=== PATIENT | female | born 1990 | race Caucasian/White ===

== ENCOUNTER 2025-02-11 18:02 | Emergency (ER) | payer OTHER, SELFPAY ==
[2025-02-11 18:06] VITALS: BP 128/91; PULSE 99; RESP 18; TEMP 36.6; O2SAT 99
--- NOTE | 2025-02-11 18:25 | CRLHL7_ITS ---
For Patients: As a result of the Century Cures Act, medical imaging exams and procedure reports are released immediately into your electronic medical record. You may view this report before your referring provider. If you have questions, please contact your health care provider. INDICATION: TECHNIQUE: Ultrasound pelvis transabdominal and transvaginal for better assessment or to better visualize the endometrium. Real-time sonographic images with spectral and color Doppler imaging of the ovaries were obtained. COMPARISON: None FINDINGS: Uterus: 9.8 x 5.5 x 7.7 cm. Normal echotexture of the myometrium. No masses. Endometrium: Transvaginal imaging was performed to better evaluate the endometrium. Endometrial thickness measures 9.3 mm. There is a mildly hyperechoic appearing endometrium without obvious vascular material to suggest retained products. Right ovary measures 2.9 x 1.5 x 1.6 cm and left ovary measures 2.7 x 1.6 x 2.1 cm. No ovarian or adnexal masses. Normal arterial and venous blood flow is demonstrated in both ovaries. Cul-de-sac: No significant free fluid. IMPRESSION: Mildly thickened endometrium with a hypoechoic appearance measuring 9.3 millimeters with out obvious vascular material to suggest retained products of conception or significant fluid. Dictated by Cuco Quach MD @ 02/11/2025 7:54:04 PM (Electronically Signed)
--- NOTE | 2025-02-11 18:31 | ED_ITS ---
HPI - Female Genitourinary General Date Seen: 02/11/25 Chief complaint: Vaginal Bleeding Stated complaint: Post Miscarriage symptoms Time Seen by Provider: 02/11/25 18:05 Source: patient Mode of arrival: ambulatory Limitations: no limitations History of Present Illness HPI Narrative: Patient is a 34-year-old female presenting to the emergency department for vaginal bleeding. She had a miscarriage in 02/02 and then had a D&C and 02/03. The D and C was done because the patient did not want to go through the trauma of having a miscarriage at home again. Was spotting since then and an ultrasound was done last week showing that the patient had a pretty large clot. Was given medication to help pass the clot. She thinks she passed a clot 2 days ago but since then has been intermittently having either vaginal spotting or notable bleeding were she was saturate a pad an hour. States she will have some associated lightheadedness. Was told to come in she has severe bleeding. This is her 2nd miscarriage. Has had 1 to term. She is A2. Denies fevers, chills, chest pain, abdominal pain, headache, weakness, numbness. No other concerns noted. Related Data Home Medications ?Medication ?Instructions ?Recorded ?Confirmed ocrelizumab 30 mg/mL intravenous 600 mg IV [id number] 02/11/25 02/11/25 solution (Ocrevus) sertraline 50 mg tablet 50 mg PO DAILY 02/11/25 02/11/25 Previous Rx's ?Medication ?Instructions ?Recorded methylergonovine 0.2 mg tablet 0.2 mg PO TID 24 hours #3 tabs 02/11/25 Allergies Allergy/AdvReac Type Severity Reaction Status Date / Time amoxicillin Allergy Severe lip Verified 02/11/25 18:11 swelling Review of Systems Status of ROS: Reports: 10 or more systems reviewed and unremarkable except as noted in History and below PFSH PFS Social History Smoking Status: Never smoker How often do you have a drink containing alcohol: 2-4 times a month AUDIT-C Alcohol total score: 2 Non-prescribed substance use: denies use Exam Narrative: Exam Narrative: Const: Well-nourished, Well-developed, in No distress Eyes: PERRL, no conjunctival injection, and symmetrical lids HENT: Atraumatic external nose and ears. Moist mucous membranes. Neck: Symmetric, trachea midline, No thyromegaly. CVS: RRR, No murmurs or gallops. Peripheral pulses 2+ and equal in all extremities RESP: Unlabored respiratory effort. Clear to auscultation bilaterally. GI: Nontender/Nondistended, No rebound or guarding. MSK:Extremities w/o deformity, Normal Active ROM Skin: Warm, Dry. No rashes or lesions. Neuro: Normal Muscle tone, No focal neurological deficits. Psych: Awake, Alert, & Oriented x3. Appropriate mood and affect. Const: Vital Signs, click to edit/add: Vital Signs - 24 hr 02/11/25 18:06 Temperature 97.9 F Pulse Rate [Pulse Oximeter] 99 Respiratory Rate 18 Blood Pressure [Ri ght Upper Arm] 128/91 H Pulse Oximetry 99 Oxygen Delivery Me thod Room Air Course Vital Signs Vital signs: Initial Vital Signs Temperature 97.9 F 02/11/25 18:06 Temperature Source Temporal Artery Scan 02/11/25 18:06 Pulse Rate 99 02/11/25 18:06 Respiratory Rate 18 02/11/25 18:06 Blood Pressure 128/91 H 02/11/25 18:06 Blood Pressure Mean 103 02/11/25 18:06 Pulse Oximetry 99 02/11/25 18:06 Oxygen Delivery Method Room Air 02/11/25 18:06 Vital Signs Temperature 97.9 F 02/11/25 18:06 Pulse Rate 99 02/11/25 18:06 Respiratory Rate 18 02/11/25 18:06 Blood Pressure 128/91 H 02/11/25 18:06 Pulse Oximetry 99 02/11/25 18:06 Oxygen Delivery Method Room Air 02/11/25 18:06 Temperature 97.9 F 02/11/25 18:06 Pulse Rate 99 02/11/25 18:06 Respiratory Rate 18 02/11/25 18:06 Blood Pressure 128/91 H 02/11/25 18:06 Pulse Oximetry 99 02/11/25 18:06 Oxygen Delivery Method Room Air 02/11/25 18:06 MDM - Female Genitourinary MDM Narrative Medical decision making narrative: patient is a 34-year-old female presenting to the emergency department for vaginal bleeding. She is hemodynamically stable. Order a BMP and CBC. Will also do an pelvic ultrasound to look for Potential cause of bleeding. unlikely to have a product as she just had a D& C. This concerned she could be having a large bleed due to passing of this clot. Will also check hemoglobin and basic lab work to make sure everything else looks normal. Lab work shows no concerning abnormalities. The ultrasound showed a 9 mm hypoechoic structure which is likely more of this previous clot but it is quite a bit smaller. I did speak to the on-call [facility] provider as she will be following up with them and explained that this patient has having intermittent episodes of heavy bleeding or she is going through about a pad an hour . I explained what the ultrasound showed. we are in agreement that this is unlikely < clot and should pass shortly. She recommends repeating the patient's Methergine 0.2 mg q.8 hours for 1 day for total of 3 doses. Patient is agreeable to this plan. Will Lab Data Labs: Lab Results 02/11/25 Range/Units 18:41 WBC 6.73 (4.50-11.00) K/uL RBC 5.09 (4.00-5.20) m/uL Hgb 13.6 (12.0-16.0) gm/dL Hct 40.3 (33.0-51.0) % MCV 79 L (80-100) fL MCH 27 (26-34) pg MCHC 34 (32-36) gm/dL RDW Coeff of Luis Manuel 14.5 (11.5-15.5) % Plt Count 265 (140-440) K/uL Neut % (Auto) 53.5 (42.0-72.0) % Lymph % (Auto) 32.2 (20-44) % [place] % (Auto) 8.3 (0.0-11.0) % Eos % (Auto) 5.1 (0.0-7.0) % Baso % (Auto) 0.6 (0.0-3.0) % Neut # (Auto) 3.60 (1.7-7.0) K/uL Lymph # (Auto) 2.17 (0.90-2.90) K/uL [place] # (Auto) 0.60 (0.00-0.90) K/UL Eos # (Auto) 0.34 (0.00-0.50) K/uL Baso # (Auto) 0.04 (0.00-0.30) K/uL Abs Immat Gran (auto) 0.02 (0.00-0.30) K/uL Imm/Tot Granulo (auto) 0.3 % Sodium 137 (135-149) mmol/L Potassium 3.5 L (3.6-5.1) mmol/L Chloride 103 (96-114) mmol/L Carbon Dioxide 23 (20-32) mmol/L Anion Gap 11 (7-15) mEq/L BUN 15 (5-24) mg/dL Creatinine 0.8 (0.5-1.5) mg/dL Estimated GFR 100 ml/min Glucose 117 H (60-115) mg/dL Calcium 9.1 (8.4-10.6) mg/dL Imaging Data pelvic ultrasound: Attestation: I have reviewed the pertinent imaging results. Radiologist's impression: Mildly thickened endometrium with a hypoechoic appearance measuring 9.3 millimeters with out obvious vascular material to suggest retained products of conception or significant fluid. Dictated by Cuco Quach MD @ 02/11/2025 7:54:04 PM Discharge Plan Discharge Clinical Impression: Vaginal bleeding Patient Disposition: Home, Self-Care Condition: Stable Instructions: Abnormal (Dysfunctional) Uterine Bleeding (ED) Additional Instructions: repeat your Methergine prescription. We will send you a copy of your ultrasound to bring to your providers At your next appointment. Return for new or worsening symptoms. Prescriptions: New methylergonovine 0.2 mg tablet 0.2 mg PO TID 1 Days Qty: 3 0RF No Action sertraline 50 mg tablet 50 mg PO DAILY Ocrevus 30 mg/mL solution 600 mg IV [id number] Follow Up/Referrals: Jodie Bradley NP [Primary Care Provider] - Stand Alone Forms: MyHealth Info Instructions
[2025-02-11 18:47] LABS: Basophils Absolute Auto 0.04 K/uL (0.00-0.30); Basophils Percent Auto 0.6 % (0.0-3.0); Eosinophils Absolute Auto 0.34 K/uL (0.00-0.50); Eosinophils Percent Auto 5.1 % (0.0-7.0); Hematocrit 40.3 % (33.0-51.0); Hemoglobin* 13.6 gm/dL (12.0-16.0); Immature Granulocytes Abs Auto 0.02 K/uL (0.00-0.30); Immature Granulocytes Pct Auto 0.3 %; Lymphocytes Absolute Auto 2.17 K/uL (0.90-2.90); Lymphocytes Percent Auto 32.2 % (20-44); Mean Corpuscular HGB Conc 34 gm/dL (32-36); Mean Corpuscular Hemoglobin 27 pg (26-34); Mean Corpuscular Volume 79 fL (80-100); Monocytes Percent Auto 8.3 % (0.0-11.0); Neutrophils Percent Auto 53.5 % (42.0-72.0); Platelet Count* 265 K/uL (140-440); RDW Coefficient of Variation % 14.5 % (11.5-15.5); Red Blood Count 5.09 m/uL (4.00-5.20); White Blood Count* 6.73 K/uL (4.50-11.00)
[2025-02-11 18:52] LABS: Slide Review Reflex No
[2025-02-11 19:12] LABS: Chloride* 103 mmol/L (96-114); Potassium* 3.5 mmol/L (3.6-5.1); Sodium* 137 mmol/L (135-149)
[2025-02-11 19:15] LABS: Blood Urea Nitrogen* 15 mg/dL (5-24); Creatinine* 0.8 mg/dL (0.5-1.5); Estimated Glomerular Filt Rate 100 ml/min
[2025-02-11 19:16] LABS: Anion Gap 11 mEq/L (7-15); Calcium* 9.1 mg/dL (8.4-10.6); Carbon Dioxide* 23 mmol/L (20-32); Glucose* 117 mg/dL (60-115)
--- OUTSIDE RECORDS SUMMARY | 2025-02-11 20:07 | XMS_ITS | Clinical Summary ---
Author Organization [facility] Address [address] [place] [address] Care Team Providers Care Research Administrator Name Role Phone No Ref-Primary, Physician Primary Care Provider Danni Aguillon MD Unavailable + [phone] Allergies Active Allergy Reactions Criticality Noted Date Comments Amoxicillin 03/11/2024 Soy Allergy (Obsolete) 01/01/2018 Isoflavones (Soy) Unknown 01/01/2018 Medications ocrelizumab (OCREVUS) 300 MG/10ML SOLN injection Inject 600 mg into the vein every 6 months 07/14/2022 Active FLUoxetine (PROZAC) 40 MG capsule Take 1 capsule by mouth daily 07/29/2023 Active Active Problems Problem Noted Date Diagnosed Date Multiple sclerosis 07/15/2019 Overview (04/17/2021): Tysabri infusions Palpitations 07/15/2019 Encounters Date Type Department Care Team Description 02/03/2025 MyC Medical Advice [facility] [address] [phone] Danni Aguillon MD 01/15/2025 [facility]C [facility]/20/2024 MyC Medical Advice [facility] [address] [phone] Danni Aguillon MD 11/21/2024 3:00 PM SAS PROGRAMMER ANALYST Office Visit [facility] [address] [address] Danni Aguillon MD MS (multiple sclerosis) (H) (Primary Dx); Episodic recurrent vertigo 11/21/2024 Travel from Last 3 Months Family History Medical History Relation Comments Supraventricular tachycardia Father Supraventricular tachycardia Paternal Aunt Cancer Paternal Grandfather Coronary Artery Disease Paternal Grandfather Supraventricular tachycardia Paternal Grandfathe r Diabetes Paternal Grandmother Relation Status Comments Father Paternal Aunt Alive Paternal Grandfather (Age 64) heart att ack at 57 Paternal Grandmother Social History Tobacco Use Types Packs/Day Years Used Date Smoking Tobacco: Never Passive Smoke Exposure: Never Smokeless Tobacco: Never Tobacco Cessation:Counseling Given: Not Answered Alcohol Use Standard Drinks/Week Comments Yes 0 (1 standard drink = 0.6 oz pur e alcohol) Alcoholic Drinks/day: socially PHQ-2 Answer Date Recorded PHQ-2 Score 0 11/21/2024 Adolescent Education Answer Date Record ed Getting School Help Needed Not on file 07/25 Comments No Sex and Gender Information Value Date Recorded Sex Assigned at Not on file Legal Sex Female 7:56 AM CDT Gender Identity Female 08/12/2024 10:44 AM CDT Sexual Orientation Not on file Last Filed Vital Signs Vital Sign Reading Time Taken Comments Blood Pressure 131/85 11/21/2024 3:03 PM SAS PROGRAMMER ANALYST Pulse 82 11/21/2024 3:03 PM SAS PROGRAMMER ANALYST Temperature 36.8 C (98.2 F) 07/08/2024 8:21 AM CDT Respiratory Rate 16 07/08/2024 8:21 AM CDT Oxygen Saturation 96% 07/08/2024 8:21 AM CDT Inhaled Oxygen Concentration - - Weight 130.6 kg (288 lb) 07/08/2024 8:21 AM CDT Height 165.1 cm (5' 5) 03/24/2024 12:56 AM CDT Body Mass Index 47.93 03/24/2024 12:56 AM CDT Plan of Treatment Upcoming Encounters Date Type Department Care Team (Late st Contact Info) Description 03/06/2025 8:00 AM CDT Infusion Therapy Visit [facility] [phone] [place] [phone] Danni Aguillon MD [address] [place] [phone] 05/15/2025 3:00 PM CDT Office Visit [facility] [address] [phone] Danni Aguillon MD [address] [place] [phone] Health Maintenance Due Date Last Done Comments ADVANCE CARE PLANNING 1990 ANNUAL REVIEW OF HM ORDERS 1990 ZOSTER IMMUNIZATION (1 of 2) 2011 YEARLY PREVENTIVE VISIT 01/24/2012 01/23/2011, 06/18 Pneumococcal Vaccine: Pediat rics (0 to 5 Years) and At-Risk Patients (6 to 49 Years) (2 of 2 - PCV) 06/14/2015 06/14/2014 COVID-19 Vaccine ( - 2023-2 5 season) 2024 11/08/2021, 01/17/2021, 12/19/2020 INFLUENZA VACCINE (#1) 2024 , 09/01/2020, 09/03/2019, Additional history exists PAP 01/27/2027 01/28/2024, 01/01, 11/05/2020 DTAP/TDAP/TD IMMUNIZATION (8 - Td or Tdap) 01/28/2033 01/28/2023, 08/15/2011, 03/03/1998, Additional history exists HEPATITIS B IMMUNIZATION Completed 993, 1992, 1992 HPV IMMUNIZATION Completed 04/09/2010, 12/2009, 09/25/2009 MENINGITIS IMMUNIZATION Completed 01/23/2011, 06/18 HEPATITIS C SCREENING Completed 03/04/2024, 022 HIV SCREENING Completed 03/04/2024, 08/15/2022 PHQ-2 (once per calendar year) Completed 0 11/21/2024, 02/29/2024, 12/01/2022 Insurance [employer] Care Teams Research Administrator Relationship Specialty Start Date End Date No Ref-Primary, Physician PCP - General 10/12/22 Danni Aguillon MD [address] [place] [address] Assigned Neuroscience Provider 12/06/22
--- OUTSIDE RECORDS SUMMARY | 2025-02-11 20:07 | XMS_ITS | Encounter Summary ---
Author Organization [facility] Address [address] [place] [address] Care Team Providers Care Search Optimization Analyst Name Role Phone Danni Aguillon MD Primary Care Provider [phone] Encounter Details Date Type Department Care Team (Late Contact Info) Description 02/08/2025 Results Follow-Up [facility] Obstetrics and Gynecology [address] [place] [phone] Liseth Foley RN Social History Tobacco Use Types Packs/Day Years Used Date Smoking Tobacco: Never Passive Smoke Exposure: Never Smokeless Tobacco: Never Alcohol Use Standard Drinks/Week Comments Yes 0 (1 standard drink = 0.6 oz pur e alcohol) occ social alc usage per pt PHQ-2 Answer Date Recorded PHQ-2 Score 2 07/08/2023 Depression Answer Date Recor ded Last EPDS Total Score 4 01/19/2025 Last EPDS Self Harm Result Not on file 01/19 Comments No Sex and Gender Information Value Date Recorded Sex Assigned at Not on file Legal Sex Female 5:17 AM CDT Gender Identity Not on file Sexual Orientation Not on file Occupation Industry Job Start Date Job End Date [employer] Not on file Not on file Not on file documented as of this encounter Plan of Treatment Upcoming Encounters Date Type Department Care Team (Late Contact Info) Description 02/12/2025 12:00 PM CDT Appointment Laboratory at [facility] [address] [place] [phone] 02/13/2025 1:40 PM CDT Appointment [facility] OB-SECURITY GUARD SUPERVISOR Ultrasound [place] [address] [place] [address] Tia Mosqueda MD [address] [place], [place] [phone] 02/23/2025 12:40 PM CDT Appointment Obstetrics & Gynecology at [address] [phone] Rachell Jordan MD [address] [place] [address] documented as of this encounter Visit Diagnoses Not on filedocumented in this encounter Care Teams Search Optimization Analyst Relationship Specialty Start Date End Date Danni Aguillon MD [address] [place] [address] PCP - General Neurology 01/09/19 documented as of this encounter
--- OUTSIDE RECORDS SUMMARY | 2025-02-11 20:07 | XMS_ITS | Clinical Summary ---
Author Organization [facility] Address [address] [place] [address] Care Team Providers Care Loan Interviewer Name Role Phone Clinic, No Pcp Or Primary Care Provider Unavaila ble None Unavailable Unavailable Allergies Active Allergy Reactions Criticality Noted Date Comments Amoxicillin Other - Describe In Comment Field 01/09/2024 Azithromycin Other - Describe In Comment Field 08/01/2008 Pt had stomach pains. Pt had stomach pains. Pt had stomach pains. Pt had stomach pains. Pt had stomach pains. Medications hydroCHLOROthiaz lisa (HCTZ) 25 mg tablet 03/22/2023 Active FLUoxetine (PROZAC) 40 mg capsule Take 40 mg by mouth once daily in the morning. 07/29/2023 Active ocrelizumab (OCREVUS IV) Inject intravenous . Active Social History Tobacco Use Types Packs/Day Years Used Date Smoking Tobacco: Never Smokeless Tobacco: Never Tobacco Cessation:Counseling Given: Not Answered Alcohol Use Standard Drinks/Week Comments Not Currently 0 (1 standard drink = 0.6 oz pur e alcohol) Comments No Sex and Gender Information Value Date Recorded Sex Assigned at Not on file Legal Sex Female 6:40 AM CANVAS WORKER Gender Identity Not on file Sexual Orientation Not on file Obstetrics History Last Filed Vital Signs Vital Sign Reading Time Taken Comments Blood Pressure 119/85 08/24/2024 9:32 AM CDT Pulse 83 08/24/2024 9:32 AM CDT Temperature 36.1 C (97 F) 08/24/2024 9:32 AM CDT Respiratory Rate 16 08/24/2024 9:32 AM CDT Oxygen Saturation 98% 08/24/2024 9:32 AM CDT Inhaled Oxygen Concentration - - Weight 122.5 kg (270 lb) 08/24/2024 9:32 AM CDT Height 177.8 cm (5' 10) 08/24/2024 9:32 AM CDT Body Mass Index 38.74 08/24/2024 9:32 AM CDT Plan of Treatment Health Maintenance Due Date Last Done Comments Tdap 2003 Depression screening for age 12+ 2004 HIV for age 15-65 2007 BMI (ht and wt on same day) for age 18+ 2010 Hepatitis C screening for ag e 18-79 2010 Tetanus booster 2012 Pap test for age 21-65 2013 COVID-19 vaccine series ( season) 2024 11/08/2021, 01/17/2021, 12/19/2020 Influenza Vaccine (Season Ended) 2025 Pneumococcal series for age 6-49 Aged Out No longer eligible b ased on patient's age to complete this topic Insurance DAMARI WEBB [id number] [place] DAMARI WEBB [id number] Care Teams Loan Interviewer Relationship Specialty Start Date End Date Clinic, No Pcp Or . PCP - General 03/29/23 None . 03/29/23
--- OUTSIDE RECORDS SUMMARY | 2025-02-11 20:07 | XMS_ITS ---
Author Organization [facility] Address [address] [place] [address] Care Team Providers Care Skull Chopper Name Role Phone QUIQUE MAXWELL Unavailable [phone] REASON FOR VISIT Nose - Bleeding Encounters Encounter Location Date Provider Diagnosis [facility] [address] [place] [address] 04/18/2024 QUIQUE MAXWELL Plan Of Treatment No Information Progress Notes * KANNAN, MarieDOB: (34 yo F)Acc No.[id number]:04/18/2024 Patient: Vangie Moncada Provider: Florence MAXWELL MD :1990 A ge:33 Y S ex:Female Date:04/18/2024 Address:[address] [facility] Subjective: * Chief Complaints: * N ose - Bleeding * Electronic signature of VIRAJ MAXWELL MD on 02/11/2025 at 08:07 PM CDT Sign off status: Pending * Provider: Florence MAXWELL MD Date: 04/18/2024 Generated for Favioi ng/Faxing/eTransmitting on: 02/11/2025 08:07 PM CDT
--- OUTSIDE RECORDS SUMMARY | 2025-02-11 20:07 | XMS_ITS | Encounter Summary ---
Author Organization [facility] Address [address] [place] [address] Care Team Providers Care Perfect Binder Feeder Offbearer Name Role Phone Danni Aguillon MD Primary Care Provider [phone] Reason for Visit * Procedure/Equipment (Routine) - Incomplete Specialty Diagnoses / Procedures Referred By Contac t Referred To Contact Diagnoses Missed Abnormal uterine bleeding Procedures OBGYN Pelvic/Film Reader Ultrasound OBGYN Pelvic/Film Reader Ultrasound Cayla Muñoz MD [address] [place] [phone] Phone: tel: fax: Referral ID Status Reason Start Date Expiration Date V isits Requested Visits Authorized [id number] Incomplete 02/07/2025 05/09/2026 1 1 Encounter Details Date Type Department Care Team (Latest Contact Info) Description 02/08/2025 9:00 AM CDT Ancillary Procedure chief deputy coroner Ultrasound at [address] [phone] Cayla Muñoz MD [address] [place] [phone] Missed ; Abnormal uterine bleeding Social History Tobacco Use Types Packs/Day Years [...] Industry Job Start Date Job End Date [employer] Not on file Not on file Not on file documented as of this encounter Plan of Treatment Upcoming Encounters Date Type Department Care Team (Late st Contact Info) Description 02/12/2025 12:00 PM CDT Appointment Laboratory at [facility] [address] [place] [phone] 02/13/2025 1:40 PM CDT Appointment [facility] OB-MATERIALS INSPECTOR Ultrasound [place] [address] [place] [address] Tia Mosqueda MD [address] [facility] [place], [place] [address] 02/23/2025 12:40 PM CDT Appointment Obstetrics & Gynecology at [facility] [address] [place] [phone] Rachell Jordan MD [address] [place] [phone] documented as of this encounter Procedures Procedure Name Priority Date/Time Associated Diagnosis Comments OBGYN PELVIC/MATERIALS INSPECTOR ULTRASOUND Routine 02/08/2025 9:17 AM CDT Missed Abnormal uterine bleeding documented in this encounter Results * (ABNORMAL) OBGYN Pelvic/Film Reader Ultrasound (02/08/2025 9:17 AM CDT) Uterus AP Diameter (Height) 7.00 cm EXTERNAL RESULTS Uterus Longitudinal Diameter (Length) 10.60 cm EXTERNAL RESULTS Uterus Transverse Diameter (Width) 8.50 cm EXTERNAL RESULTS Uterus Volume 330.23 ml DEHYDROGENATION OPERATOR HEAD AL RESULTS Endometrium Thickness 5.5 mm EXTERNAL RESULTS Left Ovary Perpendicular Diameter (Height) 1.70 cm EXTERNAL RESULTS Left Ovary Longitudinal Diameter (Length) 3.20 cm EXTERNAL RESULTS Left Ovary Hilum-Cortex Diameter (Width) 2.10 cm EXTERNAL RESULTS Left Ovary Volume 5.98 ml EX TERNAL RESULTS Right Ovary Perpendicular Diameter (Height) 1.30 cm EXTERNAL RESULTS Right Ovary Longitudinal Diameter (Length) 2.80 cm EXTERNAL RESULTS Right Ovary Hilum-Cortex Diameter (Width) 1.40 cm EXTERNAL RESULTS Right Ovary Volume 2.67 ml E XTERNAL RESULTS Anatomical Region Laterality Modality Pelvis Ultrasound Narrative 02/08/2025 9:29 AM CDT Table formatting from the original result was not included. MATERIALS INSPECTOR Ultrasound Exam performed on: 02/08/2025 Referring provider: Cayla Muñoz MD Referring clinic: IMPLEMENTATION PROJECT COORDINATOR Clinical indications: Missed Abnormal uterine bleeding LMP: D & C 02/03/25, now having heavy bleeding with clots Machine Whitener(s) initials: DP The pelvic organs are imaged using: transvaginal. Today's ultrasound was compared to previous report and images from: US- Measurements and comments Uterus: Length Height Width 10.60 7.00 8.50 cm Position: anteverted Comments: symmetrical Cervix and lower uterine segment are: Normal Myometrium: homogeneous Saline infusion sonohysterogram: no Endometrium: 5.5 mm, Ant: 3.1 mm + Post: 2.4 mm , 7.3 x 4.3 x 6.7 cm hypoechoic complex area seen within endometrium without blood flow Right ovary: Length Height Width Volume 2.80 1.30 1.40 cm 2.67 ml Comments: appears normal Left ovary: Length Height Width Volume 3.20 1.70 2.10 cm 5.98 ml Comments: appears normal Adnexa: no masses seen Peritoneal fluid: absent Other procedures done: none Impression: the endometrial cavity is filled with a 7 by 6 cm blood clot. Otherwise normal exam Plan: These findings were reviewed with the patient. Vangie will follow up with referring provider. Additional Comments: PT has appt with Dr Mosqueda following US. Rich Tristan MD 9:29 AM 02/08/2025 us Cayla Muñoz MD [facility] US Final Resul t documented in this encounter Visit Diagnoses Diagnosis Missed Abnormal uterine bleeding Unspecified disorder of menstruation and other abnormal bleeding from female genital tract documented in this encounter Care Teams Perfect Binder Feeder Offbearer Relationship Specialty Start Date End Date Danni Aguillon MD [address] [place] [address] PCP - General Neurology 01/09/19 documented as of this encounter
--- OUTSIDE RECORDS SUMMARY | 2025-02-11 20:07 | XMS_ITS | Encounter Summary ---
Author Organization [facility] Address [address], [place] [address] Care Team Providers Care Earth Sciences Professor Name Role Phone Danni Aguillon MD Primary Care Provider [phone] Reason for Visit * Auth/Cert Specialty Diagnoses / Procedures Referred By Contac t Referred To Contact Diagnoses Missed Procedures SUCTION CURETTAGE UTERUS Referral ID Status Reason Start Date Expiration Date Visits Re quested Visits Authorized [id number] 1 1 Encounter Details Date Type Department Care Team (Late st Contact Info) Description 02/03/2025 1:55 PM CDT - 02/03/2025 2:45 PM CDT Surgery [facility] [address] [place] [address] Toby Ordoñez MD [address] [place], [place] [id number] SUCTION CURETTAGE UTERUS Social History Tobacco Use Types Packs/Day Years Used Date Smoking Tobacco: Never Passive Smoke Exposure: Never Smokeless Tobacco: Never Alcohol Use Standard Drinks/Week Comments Not Currently 0 (1 standard drink = 0.6 oz pur e alcohol) occ social alc usage per pt PHQ-2 Answer Date Recorded PHQ-2 Score 2 07/08/2023 Depression Answer Date Recor ded Last EPDS Total Score 4 01/19/2025 Last EPDS Self Harm Result Not on file 01/19 Comments Yes Sex and Gender Information Value Date Recorded Sex Assigned at Not on file Legal Sex Female 5:17 AM CDT Gender Identity Not on file Sexual Orientation Not on file Occupation Industry Job Start Date Job End Date [employer] Not on file Not on file Not on file documented as of this encounter Last Filed Vital Signs Vital Sign Reading Time Taken Comments Blood Pressure 121/76 02/03/2025 12:22 PM CDT Pulse 79 02/03/2025 12:22 PM CDT Temperature 36.3 C (97.4 F) 02/03/2025 12:22 PM CDT Respiratory Rate 18 02/03/2025 12:2 2 PM CDT Oxygen Saturation 98% 02/03/2025 12: 22 PM CDT Inhaled Oxygen Concentration - - Weight 128.5 kg (283 lb 4.7 oz) 025 12:22 PM CDT Height 177.8 cm (5' 10) 02/03/2025 12: 22 PM CDT Body Mass Index 40.65 02/03/2025 12:22 PM CDT documented in this encounter Discharge Instructions * Discharge Instructions* Kendall Hogan RN - 02/03/2025 2:25 PM CDT CONTACT INFORMATION If it is after hours call the Careline at [phone]. [facility] BARIATRIC COORDINATOR, ANESTHESIA Today you received General/Minor Sedation: Rest in bed the day of surgery, then advance to normal activity the next day. Let's talk about what to expect after receiving anesthesia. After anesthesia, reactions are slow and some patients may become lightheaded or dizzy. The following safety precautions are recommended: Don't drink alcoholic beverages. Don't use any other drugs than those ordered by your physician. Don't drive a car or any other vehicle. Don't work with machinery or power tools. Be careful walking. Be extra careful walking up and down stairs. DANGER SIGNALS I should call my clinic if I experience any of the following: Temperature higher than 101 degrees Fahrenheit Redness that has spread Persistent bleeding Green/yellow/infected, foul smelling drainage from incision site Reaction to new medications Severe pain Swelling documented in this encounter Medications at Time of Discharge acetaminophen (TYLENOL) 325 MG tablet Take 2 Tablets (650 mg) by mouth every 6 hours as needed for Pain. 02/03/2025 ibuprofen (MOTRIN) 600 MG tablet Take 1 Tablet (600 mg) by mouth every 6 hours as needed for Pain. 02/03/2025 ocrelizumab (OCREVUS) 300 MG/10ML injection every 6 (six) months sertraline (ZOLOFT) 50 MG tabletIndications :Anxiety and depression (HRC) Take 1 Tablet (50 mg) by mouth daily. 30 Tablet 3 01/19/2025 01/19/2026 metoclopramide (REGLAN) 10 MG tabletIndications :Nausea and vomiting in Take 1 Tablet (10 mg) by mouth 4 times daily as needed for Nausea or Vomiting. 60 Tablet 4 01/12/2025 02/08/2025 documented as of this encounter Progress Notes * Kendall Hogan RN - 02/03/2025 12:16 PM CDT I completed a full assessment and assessments as ordered and per policy on this patient during my work shift. Reassessments completed during my work shift are unchanged unless documented. Pt feels well to go home ok to discharge per MDA documented in this encounter Procedure Notes * Toby Ordoñez MD - 02/03/2025 2:49 PM CDT [facility] Gynecology Operative Note Patient: Vangie Brunner Date: 02/03/2025 Surgeon: TOBY ORDOÑEZ MD Assistants: Reinier LAYTON MD, PGY1 Preoperative Diagnosis: - Missed Postoperative Diagnosis: - Same, now s/p procedure listed below Procedure: Exam under anesthesia, suction D&C under ultrasound-guidance Anesthesia: Mac, paracervical block Antibiotics: 200mg doxycyline x1 in preop IVF: 700 mL crystalloid UOP: voided prior to procedure EBL: 50 mL Specimens: tissue Complications: None apparent Findings: 9-week size anteverted, mobile uterus. Cervix easily dilated to 10mm. Products of conception removed, with gestational sac, chorionic villi, and decidua visualized on gross inspection. Bleeding minimal from external os at end of procedure. Tenaculum sites hemostatic. Indications: Vangie Brunner is a 34 y.o. at 9w6d by 7w2d US with a recent US notable for no cardiac activity on 02/02/2025. She was diagnosed with a missed . She was counseled on her options for missed including expectant management, medication management with misoprostol, and surgical management. She chose surgical management with a suction D&C. She desireschromosomal analysis with gender, if able, to be completed. The risks and benefits were discussed with the patient, and she agreed to proceed. Procedure Details: The patient was brought to the OR where adequate mac anesthesia was administered. Exam under anesthesia revealed the findings noted above. The patient was prepped and draped in the usual sterile fashion. A sterile speculum was placed. Anterior cervix grasped with a single tooth tenaculum. A paracer vical block was performed with a total of 20 cc of the lidocaine 1% injected at 4 and 8 o'clock in the cervicovaginal junction. The cervix was dilated easily to 10mm with hegar dilators. A 9mm rigid suction curette was placed easily. Suction was set to 60-80 mmHg, and was used to evacuate the uterus of the products of conception, grossly visualized through the tubing. The entire procedure was comp leted under ultrasound guidance. Minimal bleeding from external os. The tenaculum was then removed,and the tenaculum site was noted to be hemostatic. The sterile speculum was removed. Tissue sent for chromosomal analysis. The products of conception were inspected grossly, and noted to contain a gestational sac with chorionic villi and decidual tissue. The sponge, needle, and instrument counts were correct. The patienttolerated the procedure well and was transferred to recovery in stable condition. Dr. Ordoñez was present and scrubbed for the entirety of the procedure. Reinier Layton MD [facility] Obstetrics and Gynecology, PGY1 02/03/2025 Date of Service: 02/03/25 ???I operated on the patient with the resident and I agree with Dr. Layton's findings and note. Suction evacuation done under ultrasound guidance to confirm safety and completion of procedure. Gestational sac fetus not identified. Tissue sent for both chromosomes and pathology. Blood loss was 50 cc. Given Toradol at the end of the procedure. Please see the note dated 02/03/2025.?? Toby Ordoñez MD documented in this encounter Plan of Treatment Upcoming Encounters Date Type Department Care Team (Late st Contact Info) Description 02/12/2025 12:00 PM CDT Appointment Laboratory at [address] [phone] 02/13/2025 1:40 PM CDT Appointment [facility] OB-CAMP ASSISTANT Ultrasound [place] [address] [place] [address] Tia Mosqueda MD [address] [place], [place] [phone] 02/23/2025 12:40 PM CDT Appointment Obstetrics & Gynecology at [address] [phone] Rachell Jordan MD [address] [place] [address] Pending Results Name Type Priority Associated Diagnoses Date /Time Chromosome Analysis, Products of Conception Lab Routine 12:00 PM CDT Scheduled Orders Name Type Priority Associated Diagnoses Orde r Schedule Chromosome Analysis, Products of Conception Lab Routine Once toda y starting now for 1 Occurrences starting 02/04/2025 until 02/04/2025 documented as of this encounter Procedures Procedure Name Priority Date/Time Associated Diagnosis Comments SURGICAL PATHOLOGY Routine 02/03/2025 2: 23 PM CDT Missed SUCTION CURETTAGE UTERUS 02/03/2025 2:10 PM CDT Missed documented in this encounter Results * Surgical Path (02/03/2025 2:23 PM CDT) Case Report Surgical Pathology Case: [id number] Authorizing Provider: Toby Ordoñez MD Collected: 02/03/2025 1423 Ordering Location: [facility] Same Day Received: 02/03/2025 [facility] Pathologist: Marla Martínez MD Specimen: Products of Conception 02/08/2025 9:31 AM [facility] FINAL DIAGNOSIS A. Uterine contents: Decidua, chorionic villi, and somatic tissue consistent with intrauterine products of conception 02/08/2025 9:31 AM [facility] at 0931 CDT Clinical Information Missed 02/08/2025 9:31 AM [facility] Microscopic Description Microscopic examination is performed. 02/08/2025 9:31 AM [facility] Gross Description A: The specimen is received in formalin and labeled with the patient's name and Products of Conception. The specimen consists of a 6.4 x 4.2 x 1.5 cm aggregate of hemorrhagic, nagel fibromembranous tissue. No components, chorionic villi, or hydropic villi are identified. A separate portion is submitted for chromosome analysis. Freelance Photographer sections are submitted in 6 cassettes. 02/08/2025 9:31 AM [facility] Embedded Images 02/08/2025 9:31 AM [facility] Tissue RETAINED PRODUCTS OF CONCEPTION / Unknown 02/03/2025 2:23 PM CDT 02/03/2025 3:02 PM CDT Toby Ordoñez MD LAB PATHOLOGY Final Result Performing Organization Address City/State/[facility] Co de Phone Number [address] [address], [facility] documented in this encounter Visit Diagnoses Diagnosis Missed - Primary Missed Missed documented in this encounter Admitting Diagnoses Diagnosis Missed documented in this encounter Administered Medications Inactive Administered Medications - up to 3 most recent administrations Medication Order MAR Action Action Date Dose Rate Site doxycycline monohydrate (MONODOX) capsule 200 mg 200 mg, Oral, ONCE (NON-SCHEDULED), Starting on Thu02/03/25 at 1222, For 1 dose, Give pre-op with a sip approximately 1 hour prior to procedure., Indications: Surgical Prophylaxis, Pre-opIndications:Surgical Prophylaxis Given 02/03/2025 12:49 PM CDT 200 mg lactated ringers infusion Intravenous, at 125 mL/hr, CONTINUOUS, Starting on Thu02/03/25 at 1245, Pre-opIndications:Missed Restarted 02/03/2025 2:40 PM CDT Continued by Anesthesia 02/03/2025 2:17 PM CDT 125 mL/hr Started 02/03/2025 12:47 PM CDT 125 mL/hr lidocaine (XYLOCAINE) 1 % injection ONCE PRN, Starting on Thu02/03/25 at 1438, Until Thu02/03/25 at 1743, Intra-op Given 02/03/2025 2:38 PM CDT 20 mL ondansetron (ZOFRAN) injection 4 mg 4 mg, Intravenous, ONCE, On Thu02/03/25 at 1345, For 1 dose, Pre-op Given 02/03/2025 1:20 PM CDT 4 mg documented in this encounter Care Teams Earth Sciences Professor Relationship Specialty Start Date End Date Danni Aguillon MD [address] [place] [address] PCP - General Neurology 01/09/19 documented as of this encounter
--- OUTSIDE RECORDS SUMMARY | 2025-02-11 20:07 | XMS_ITS | Encounter Summary ---
Author Organization [facility] Address [address] [place] [address] Care Team Providers Care Trimmer Helper Name Role Phone No Ref-Primary, Physician Primary Care Provider Danni Aguillon MD Unavailable [phone] Encounter Details Date Type Department Care Team (Late st Contact Info) Description 01/15/2025 MyC Medical Advice Initial Department Aneesh Shaw Social History Tobacco Use Types Packs/Day Years [...] AM CDT Sexual Orientation Not on file documented as of this encounter Plan of Treatment Upcoming Encounters Date Type Department Care Team (Late st Contact Info) Description 03/06/2025 8:00 AM CDT Infusion Therapy Visit [facility] [id number] [place] [address] [address] [place] [address] Danni Aguillon MD [address] [place], [place] [address] 05/15/2025 3:00 PM CDT Office Visit [facility] [place] [id number] [place] [address] Danni Aguillon MD [address] [place] [address] documented as of this encounter Visit Diagnoses Not on filedocumented in this encounter Care Teams Trimmer Helper Relationship Specialty Start Date End Date No Ref-Primary, Physician PCP - General 10/12/22 Danni Aguillon MD [address] [place] [address] Assigned Neuroscience Provider 12/06/22 documented as of this encounter
--- OUTSIDE RECORDS SUMMARY | 2025-02-11 20:07 | XMS_ITS | Patient Health Record ---
Author Organization [facility] Address [address] [place] [address] Care Team Providers Care Ship Captain Name Role Phone QUIQUE MAXWELL Unavailable [phone] Reason For Referral No Information Plan Of Treatment No Information
--- OUTSIDE RECORDS SUMMARY | 2025-02-11 20:07 | XMS_ITS | Encounter Summary ---
Author Organization [facility] Address [address] [place] [address] Care Team Providers Care Auto Damage Appraiser Name Role Phone Danni Aguillon MD Primary Care Provider [phone] Encounter Details Date Type Department Care Team (Late Contact Info) Description 02/08/2025 Results Follow-Up [facility] Obstetrics and Gynecology [address] [place] [phone] Liseth Foley RN Social History Tobacco Use [...] Industry Job Start Date Job End Date [employer] Not on file Not on file Not on file documented as of this encounter Plan of Treatment Upcoming Encounters Date Type Department Care Team (Late Contact Info) Description 02/12/2025 12:00 PM CDT Appointment Laboratory at [facility] [address] [place] [address] 02/13/2025 1:40 PM CDT Appointment [facility] OB-DIGITAL COLOR PRESS OPERATOR Ultrasound [place] [address] [place] [address] Tia Mosqueda MD [address] [place], [place] [phone] 02/23/2025 12:40 PM CDT Appointment Obstetrics & Gynecology at [address] [phone] Rachell Jordan MD [address] [place] [address] documented as of this encounter Visit Diagnoses Not on filedocumented in this encounter Care Teams Auto Damage Appraiser Relationship Specialty Start Date End Date Danni Aguillon MD [address] [place] [address] PCP - General Neurology 01/09/19 documented as of this encounter
--- OUTSIDE RECORDS SUMMARY | 2025-02-11 20:07 | XMS_ITS | Encounter Summary ---
Author Organization [facility] Address [address] [place] [address] Care Team Providers Care Keg Washer Name Role Phone No Ref-Primary, Physician Primary Care Provider Danni Aguillon MD Unavailable [phone] Encounter Details Date Type Department Care Team (Late st Contact Info) Description 12/20/2024 MyC Medical Advice [facility] [address] [address] Danni Aguillon MD [address] [place] [phone] Social History Tobacco Use Types Packs/Day Years [...] 03/06/2025 8:00 AM CDT Infusion Therapy Visit [facility] [address] [place] [address] Danni Aguillon MD [address] [place] [address] 05/15/2025 3:00 PM CDT Office Visit [facility] Neurology [address] [phone] Danni Aguillon MD [address] [place] [phone] documented as of this encounter Visit Diagnoses Not on filedocumented in this encounter Care Teams Keg Washer Relationship Specialty Start Date End Date No Ref-Primary, Physician PCP - General 10/12/22 Danni Aguillon MD [address] [place] [phone] Assigned Neuroscience Provider 12/06/22 documented as of this encounter
--- OUTSIDE RECORDS SUMMARY | 2025-02-11 20:07 | XMS_ITS | Encounter Summary ---
Author Organization [facility] Address [address] [place] [address] Care Team Providers Care Perforator Name Role Phone Danni Aguillon MD Primary Care Provider [phone] Reason for Visit * Auth/Cert Specialty Diagnoses / Procedures Referred By Contac t Referred To Contact Diagnoses Missed Procedures SUCTION CURETTAGE UTERUS Referral ID Status Reason Start Date Expiration Date Visits Re quested Visits Authorized [id number] 1 1 Encounter Details Date Type Department Care Team (Late st Contact Info) Description 02/03/2025 2:17 PM CDT Anesthesia Event [facility] [address] [place], [place] [phone] Faustino Connelly MD [address] [place] [address] Roxie Sue APRNSPRING [address] [place] [address] Anesthesia Record Procedure Summary Procedure Name Responsible Anesthesiologist Anesthesia Start Time Anesthesia Stop Time SUCTION CURETTAGE UTERUS Faustino Connelly MD 02/03/25 1417 02/03/25 1457 Events Date Time Event Comment 02/03/2025 1417 An Start 1420 An Start Data 1422 An Oxygen Mask Spontaneous r espirations with adequate air exchange. 1437 An Local Anesthetic By Surge on 1452 an stop data 1457 Care Handoff Note I discusse d with the receiving nurse and we: 1) Identified the patient, spencer family member(s) or patient surrogate 2) Identified the responsible practitioner 3) Reviewed the pertinent medical history 4) Discussed the surgical/procedure course 5) Reviewed intra-op anesthesia management and issues during anesthesia 6) Set expectations for the post-procedure period 7) Allowed opportunity for questions and acknowledgement of understanding of report Electronically signed by Roxie Sue APRN, PULP BEATER 1452 [facility] Meds Name Total midazolam 2 mg/2 mL injection (aka VERSE D) 2 mg FENTanyl injection (aka SUBLIMAZE) 2 mL lidocaine 1% PF injection aka (XYLOCAINE ) 50 mg propofol 10 mg/mL for procedural sedatio n (aka diPRIvan) 130 mg propofol 10 mg/mL for procedural sedatio n (aka diPRIvan) 295.55 mg glycopyrrolate injection (aka ROBINUL) 0 .2 mg dexamethasone 4 mg/mL injection (aka DEC ADRON) 4 mg ketorolac 15 mg/mL injection (TORADOL) 1 5 mg lactated ringers infusion 700 mL * Agents Name 02 Delivery Device O2 N2O Air * Blood No blood administrations on file. Lines, Drains, and Airways Type Details Placement Removal Peripheral IV Placement Date: 02/03/25; Placement Time: 1247; Pre-existing: No; Inserted by?: RN; Size (Gauge): 22 G; Orientation: Left; Site Prep: ChloraPrep; Local Anesthetic: None; Insertion attempts: 1; Blood draw with insertion?: no; Patient Tolerance: Tolerated well; Removal Date: 02/03/25; Removal Time: 1518; Removal Reason: Per Protocol; Catheter Tip: Intact 02/03/25 1247 by Bethanie Oleary RN 02/03/25 1518 by Kendall Hogan RN Incision/Surgical Site 02/03/25; 1454; Vagina; 02/03/25; 1518 02/03/25 1454 by Reji Vázquez, RN 02/03/25 1518 by Kendall Hogan RN documented in this encounter Social History Tobacco Use Types Packs/Day Years [...] Industry Job Start Date Job End Date [employer] Not on file Not on file Not on file documented as of this encounter Miscellaneous Notes * Anesthesia Postprocedure Evaluation - Faustino Connelly MD - 02/03/2025 3:19 PM CDT [facility] Anesthesia Post-op Note Patient: Vangie Brunner Post-Op Diagnosis: Pre-Op Diagnosis Codes: * Missed [O02.1] Procedures performed: SUCTION CURETTAGE UTERUS Anesthesia Type: MAC Post-op vital signs: Vitals Value Taken Time BP 107/70 02/03/25 1509 Temp 98.3 ??F (36.8 ??C) 02/03/25 1456 Pulse 64 02/03/25 1509 Resp 18 02/03/25 1509 SpO2 98 % 02/03/25 1509 Pain Assessment Preferred Pain Scale: number (Numeric Rating Pain Scale) Last recorded pain score: 0 Post-op assessment: Patient location: PACU Airway Status: Patent Cardiovascular function: Satisfactory Hydration status: Satisfactory PONV: None Level of Consciousness: Awake Fully Participates Postop Assessment: Patient tolerated procedure well. Electronically signed by: Faustino Connelly MD 02/03/2025 3:19 PM * Anesthesia Preprocedure Evaluation - Faustino Connelly MD - 02/03/2025 1:23 PM CDT [facility] Anesthesia Pre-op Evaluation Procedure: SUCTION CURETTAGE UTERUS, N/A HPI: 34 y.o. old female. Pre-Op Diagnosis Codes: * Missed [O02.1] Last Fluid Intake Time: 1000 (water) Last Fluid Intake Date: 02/03/25 Last Food Intake Date: 02/02/25 Last Food Intake Time: 2300 Allergies Allergen Reactions Amoxicillin Other, see comments Past Medical History: Diagnosis Date Anxiety with depression (HRC) Asthma flares with allergies and URI Gestational hypertension JARVIS (iron deficiency anemia) in middle school, took iron Multiple sclerosis (HRC) 2013 Obesity, unspecified (HRC) Palpitations 07/15/2019 Seasonal allergic rhinitis Patient Active Problem List Diagnosis ACL tear Multiple sclerosis (HRC) Balance problems Vitamin D deficiency (HRC) Anxiety (HRC) Low back pain Displacement of lumbar intervertebral disc without myelopathy (HRC) Palpitations (spontaneous vaginal delivery) Not immune to hepatitis B virus Missed Past Surgical History: Procedure Laterality Date ACL RECONSTRUCTION Right 11/02/2011 SINUS SURGERY WISDOM TEETH EXTRACTION Outpatient Medications as of 02/02/2025 Medication Sig acetaminophen (TYLENOL) 325 MG tablet Take 2 Tablets (650 mg) by mouth every 6 hours as needed for Pain. ibuprofen (MOTRIN) 600 MG tablet Take 1 Tablet (600 mg) by mouth every 6 hours as needed for Pain. metoclopramide (REGLAN) 10 MG tablet Take 1 Tablet (10 mg) by mouth 4 times daily as needed for Nausea or Vomiting. ocrelizumab (OCREVUS) 300 MG/10ML injection every 6 (six) months sertraline (ZOLOFT) 50 MG tablet Take 1 Tablet (50 mg) by mouth daily. Facility-Administered Medications as of 02/02/2025 Medication Dose Route Frequency [COMPLETED] doxycycline monohydrate (MONODOX) capsule 200 mg 200 mg Oral Once (Non-Scheduled) lactated ringers infusion Intravenous Continuous [COMPLETED] ondansetron (ZOFRAN) injection 4 mg 4 mg Intravenous Once sodium chloride 0.9% infusion 500 mL Intravenous Continuous Labs: Lab Results Component Value Date/Time SODIUM 138 03/21/2023 08:43 AM K 3.6 03/21/2023 08:43 AM CHLORIDE 109 03/21/2023 08:43 AM BUN 6 (L) 03/21/2023 08:43 AM CREATININE 0.67 01/19/2025 02:11 PM GLUCOSE 104 (H) 03/21/2023 08:43 AM Lab Results Component Value Date/Time WBC 8.2 01/19/2025 02:11 PM HGB 15.0 01/19/2025 02:11 PM HCT 43.0 01/19/2025 02:11 PM PLTS 281 01/19/2025 02:11 PM No results found for: INR Quantitative HCG on 01/07/2025 was 02174 mIU/ml. Blood Bank: ABO (no units) Date Value 03/18/2023 O Antibody Screen Interpretation (no units) Date Value 01/19/2025 Negative EKG: Date of last EK07/26/10 ECG 12-LEAD ROUTINE Result Value Ref Range Ventricular Rate 63 BPM Atrial Rate 63 BPM P-R Interval 146 ms QRS Duration 84 ms QT 408 ms QTC 417 ms P Erwin 50 degrees R Erwin 59 degrees T Erwin 34 degrees URL Link Physical Exam: BP 121/76 Pulse 79 Temp 97.4 ??F (36.3 ??C) (Temporal Artery) Resp 18 Ht 5' 10 (1.778 m) Wt 128.5 kg (283 lb 4.7 oz) LMP 11/18/2024 (Exact Date) SpO2 98% BMI 40.65 kg/m?? Assessment/Plan: Review of Systems Patient does not have GERD. Patient is not a current smoker. The patient denies alcohol use. Patient denies any recent URI. History of PONV: No. History of motion sickness: No. Patient denies any personal or family history of anesthesia complications. NPO Status: Acceptable. Exam Mental Status: Alert and oriented. Mallampati score: II (Two). Mouth opening: Normal Thyromental Distance: > 3 finger breadths and Normal Neck Extension: Full Neck Circumference > 40 cm?: No Current airway assessment:Normal Cardiac Exam: Regular rate and rhythm. Respiratory Exam: Breath sounds clear to auscultation Assessment ASA Status: 2 . Plan Anesthesia type: MAC Induction: Intravenous Maintenance: TIVA Postoperative pain management: Plan for postoperative opioid use PONV Risk Score Adult: 3 Anesthetic plan, risks, benefits and alternatives discussed with the patient who agrees to the anesthesia treatment plan. The patient and/or their employment representative were notified about the potential risks of damage to the lips, teeth, dental devices, mouth and airway. H&P Reviewed and Patient examined, no change observed IV access Antibiotics per surgery Electronically signed by: Faustino Connelly MD 02/03/2025 1:23 PM documented in this encounter Plan of Treatment Upcoming Encounters Date Type Department Care Team (Late st Contact Info) Description 02/12/2025 12:00 PM CDT Appointment Laboratory at [facility] [address] [place] [address] 02/13/2025 1:40 PM CDT Appointment [facility] OB-BRAZING MACHINE OPERATOR Ultrasound [place] [address] [place] [address] Tia Mosqueda MD [address] [place], [place] [phone] 02/23/2025 12:40 PM CDT Appointment Obstetrics & Gynecology at [facility] [address] [place] [address] Rachell Jordan MD [address] [place] [phone] documented as of this encounter Visit Diagnoses Not on filedocumented in this encounter Administered Medications Inactive Administered Medications - up to 3 most recent administrations Medication Order MAR Action Action Date Dose Rate Site dexAMETHasone (DECADRON) injection Intravenous, Starting on Thu02/03/25 at 1423, Until Thu02/03/25 at 1503 Given 02/03/2025 2:23 PM CDT 4 mg fentaNYL (SUBLIMAZE) injection Intravenous, Starting on Thu02/03/25 at 1423, Until Thu02/03/25 at 1503 Given 02/03/2025 2:23 PM CDT 2 mL glycopyrrolate (ROBINUL) injection Intravenous, Starting on Thu02/03/25 at 1428, Until Thu02/03/25 at 1503 Given 02/03/2025 2:28 PM CDT 0.2 mg ketorolac (TORADOL) injection Intravenous, Starting on Thu02/03/25 at 1444, Until Thu02/03/25 at 1503 Given 02/03/2025 2:44 PM CDT 15 mg lactated ringers infusion Intravenous, at 125 mL/hr, CONTINUOUS, Starting on Thu02/03/25 at 1245, Pre-opIndications:Missed Restarted 02/03/2025 2:40 PM CDT Continued by Anesthesia 02/03/2025 2:17 PM CDT 125 mL/hr Started 02/03/2025 12:47 PM CDT 125 mL/hr lidocaine PF (XYLOCAINE) 1 % injection Intravenous, Starting on Thu02/03/25 at 1423 Given 02/03/2025 2:23 PM CDT 50 mg midazolam (VERSED) injection Intravenous, Starting on Thu02/03/25 at 1417, Until Thu02/03/25 at 1503 Given 02/03/2025 2:17 PM CDT 2 mg propofol (DIPRIVAN) 10 mg/mL injection Intravenous, Starting on Thu02/03/25 at 1423, Until Thu02/03/25 at 1503 Given 02/03/2025 2:43 PM CDT 40 mg Given 02/03/2025 2:28 PM CDT 10 mg Given 02/03/2025 2:27 PM CDT 20 mg propofol (DIPRIVAN) 10 mg/mL injection Intravenous, Starting on Thu02/03/25 at 1422, Until Thu02/03/25 at 1503 Started 02/03/2025 2:22 PM CDT 100 mcg/kg/min 77.1 mL/hr documented in this encounter Care Teams Perforator Relationship Specialty Start Date End Date Danni Aguillon MD [address] [place] [address] PCP - General Neurology 01/09/19 documented as of this encounter
--- OUTSIDE RECORDS SUMMARY | 2025-02-11 20:07 | XMS_ITS | Encounter Summary ---
Author Organization [facility] Address [address] [place] [address] Care Team Providers Care Litigator Name Role Phone No Ref-Primary, Physician Primary Care Provider Danni Aguillon MD Unavailable [phone] Encounter Details Date Type Department Care Team ([facility] st Contact Info) Description 07/13/2024 [facility] [address] [address] Danni Aguillon MD [address] [place] [phone] Social History Tobacco Use Types Packs/Day Years Used Date Smoking Tobacco: Never Passive Smoke Exposure: Never Smokeless Tobacco: Never Alcohol Use Standard Drinks/Week Comments Yes 0 (1 standard drink = 0.6 oz pur e alcohol) Alcoholic Drinks/day: socially PHQ-2 Answer Date Recorded PHQ-2 Score 0 02/29/2024 Adolescent Education Answer Date Record ed Getting School Help Needed Not on file 07/25 Comments No Sex and Gender Information Value Date Recorded Sex Assigned at Not on file Legal Sex Female 7:56 AM CDT Gender Identity Female 08/12/2024 10:44 AM CDT Sexual Orientation Not on file documented as of this encounter Miscellaneous Notes * Telephone Encounter - Danni Aguillon MD - 07/13/2024 1:42 PM CDT Please refer to pcp or urgent care documented in this encounter Plan of Treatment Upcoming Encounters Date Type Department Care Team (Late st Contact Info) Description 03/06/2025 8:00 AM CDT Infusion Therapy Visit [facility] [address] [place] [address] [address] [place] [address] Danni Aguillon MD [address] [place] [phone] 05/15/2025 3:00 PM CDT Office Visit [facility] [address] [address] Danni Aguillon MD [address] [place] [address] [phone] documented as of this encounter Visit Diagnoses Not on filedocumented in this encounter Care Teams Litigator Relationship Specialty Start Date End Date No Ref-Primary, Physician PCP - General 10/12/22 Danni Aguillon MD [address] [place] [address] [phone] Assigned Neuroscience Provider 12/06/22 documented as of this encounter
--- OUTSIDE RECORDS SUMMARY | 2025-02-11 20:07 | XMS_ITS | Encounter Summary ---
Author Organization [place] Address [address] [place] [address] Care Team Providers Care Needle Punch Operator Name Role Phone No Ref-Primary, Physician Primary Care Provider Danni Aguillon MD Unavailable [phone] Encounter Details Date Type Department Care Team [...] 03/06/2025 8:00 AM CDT Infusion Therapy Visit [facility] [address] [place] [address] [address] [place] [address] Danni Aguillon MD [address] [place], [place] [phone] 05/15/2025 3:00 PM CDT Office Visit [facility] [place] [address] [place] [address] Danni Aguillon MD [address] [place] [address] documented as of this encounter Visit Diagnoses Not on filedocumented in this encounter Care Teams Needle Punch Operator Relationship Specialty Start Date End Date No Ref-Primary, Physician PCP - General 10/12/22 Danni Aguillon MD [address] [place] [address] Assigned Neuroscience Provider 12/06/22 documented as of this encounter
--- OUTSIDE RECORDS SUMMARY | 2025-02-11 20:07 | XMS_ITS | Encounter Summary ---
Author Organization [facility] Address [address] [place] [address] Care Team Providers Care Photolithographic Stripper Name Role Phone Danni Aguillon MD Primary Care Provider [phone] Reason for Visit * Reason Comments Follow Up Ultrasound Encounter Details Date Type Department Care Team (Late st Contact Info) Description 02/08/2025 11:00 AM CDT Office Visit [facility] OB-PACK WORKER [place] [address] [place], [place] [address] Tia Mosqueda MD [address] [place] [address] Hematometra (Primary Dx); S/P D&C (status post dilation and curettage) Social History Tobacco Use Types Packs/Day Years [...] Industry Job Start Date Job End Date [employer] Not on file Not on file Not on file documented as of this encounter Last Filed Vital Signs Vital Sign Reading Time Taken Comments Blood Pressure 135/96 02/08/2025 11:51 AM CDT Pulse 77 02/08/2025 11:51 AM CDT Temperature - - Respiratory Rate - - Oxygen Saturation - - Inhaled Oxygen Concentration - - Weight - - Height - - Body Mass Index - - documented in this encounter Progress Notes * Tia Mosqueda MD - 02/08/2025 11:00 AM CDT Chief Complaint Patient presents with Follow Up Ultrasound S: Vangie is a 34yo P1021 who presents for f/u of her US that was performed for ongoing bleeding/cramping following her suction D&C on 02/03 for a miscarriage at 9 weeks. The procedure was uncomplicated and Vangie was surprised by the lack of bleeding she experienced after surgery. She had minimal bleeding and pain. She has had 1/2 dollar clots the last couple of days. Some cramping that comes and goes. It is not severe. She can use a heating pad and ibuprofen and it is sufficient. She underwent a miscarriage about 1 year ago spontaneously and it was challenging with the amount of bleeding and visualization of tissue. She did take misprostol at the end of the miscarriage and shortly after that, had severe nose bleeds that required her to go to the ED. She was subsequently found to have a sinus polyp and although she isn't sure if the cause was the miso, she is hesitant to take it again. She also has questions about her uterus and if there is a problem with it that led to the miscarriages as well as not allowing the blood to come out after her procedure. She has f/u scheduled with her primary OB in a few weeks. She also is waiting on genetic testing for the miscarriage. Vangie reports sometimes having elevated BP, likely mild chronic HYPERTENSION. She has well controlled MS. O: Vitals: 02/08/25 1151 BP: (!) 135/96 Pulse: 77 First BP: 122/94 Patient does not appear in distress Psych: Normal affect US: Measurements and comments Uterus: Length Height Width [...] Vangie will follow up with referring provider. A/P: 34yo P1021, here for f/u of her D&C with a hematometra, stable. - Findings in US are most consistent with a hematometra. No sign of blood flow to suggest retained products of conception. She is counseled on options which include expectant management, medical management, or surgical management either in the office (IPAS) or in the hospital with a repeat D&C.She strongly wishes to avoid additional procedures if she can. She is mildly symptomatic, but wouldlike to try medication to pass it. She is hesitant to take misprostol and therefore methergine 0.2mg TID was discussed. She is mildly hypertensive, but with a short course, should not have significant blood pressure effects. Recommend taking that and monitoring her bleeding. She should have passageof larger clots. If she doesn't by Thursday, she should call the clinic and an IPAS will likely be rec ommended. She is counseled that her uterine cavity appears normal and that sometimes the cervix closes before the blood can return and I do not anticipate this problem is the reason she had her miscarriage or will cause future miscarriages. Recommend discussing her recurrent loss with her primary OB but briefly discussed possible karyotype. She inquired about expanded carrier screening and was counseled that although useful information, that won't give information about her miscarriages. She expressed understanding and agrees with the plan. Tia Mosqueda MD 02/08/2025, 9:45 PM documented in this encounter Plan of Treatment Upcoming Encounters Date Type Department Care Team (Late st Contact Info) Description 02/12/2025 12:00 PM CDT [facility] [address] [place] [address] 02/13/2025 1:40 PM CDT Appointment [facility] OB-PACK WORKER Ultrasound [place] [address] [place] [address] Tia Mosqueda MD [address] [place], [place] [address] 02/23/2025 12:40 PM CDT [facility] [address] [place] [phone] Rachell Jordan MD [address] [place] [phone] documented as of this encounter Visit Diagnoses Diagnosis Hematometra- Primary S/P D&C (status post dilation and curettage) Other postprocedural status documented in this encounter Care Teams Photolithographic Stripper Relationship Specialty Start Date End Date Danni Aguillon MD [address] [place] [phone] PCP - General Neurology 01/09/19 documented as of this encounter
--- OUTSIDE RECORDS SUMMARY | 2025-02-11 20:07 | XMS_ITS | Encounter Summary ---
Author Organization [facility] Address [address] [place] [address] Care Team Providers Care Explosives Handler Name Role Phone Danni Aguillon MD Primary Care Provider [phone] Encounter Details Date Type Department Care Team (Late st Contact Info) Description 02/07/2025 Notes/Orders Obstetrics & Gynecology at [address] [address] Cayla Muñoz MD [address] [place] [phone] Missed (Primary Dx) Social History Tobacco Use Types Packs/Day Years [...] Industry Job Start Date Job End Date [employer] Not on file Not on file Not on file documented as of this encounter Plan of Treatment Upcoming Encounters Date Type Department Care Team (Late Contact Info) Description 02/12/2025 12:00 PM CDT Appointment Laboratory at [facility] [address] [place] [address] 02/13/2025 1:40 PM CDT Appointment [facility] OB-FAMILY AND MARRIAGE COUNSELLOR Ultrasound [place] [address] [place], [place] [address] Tia Mosqueda MD [address] [facility] [place] [address] 02/23/2025 12:40 PM CDT Appointment Obstetrics & Gynecology at [facility] [address] [place] [address] Rachell Jordan MD [address] [place] [phone] documented as of this encounter Visit Diagnoses Diagnosis Missed - Primary documented in this encounter Care Teams Explosives Handler Relationship Specialty Start Date End Date Danni Aguillon MD [address] [place] [address] PCP - General Neurology 01/09/19 documented as of this encounter
--- OUTSIDE RECORDS SUMMARY | 2025-02-11 20:07 | XMS_ITS | Encounter Summary ---
Author Organization [place] Address [address] [place] [address] Care Team Providers Care Hydraulic Corrugating Machine Operator Name Role Phone No Ref-Primary, Physician Primary Care Provider Danni Aguillon MD Unavailable [phone] Encounter Details Date Type Department Care Team (Late st Contact Info) Description 09/06/2024 [facility] Medical Advice [facility] [address] [address] Danni Aguillon MD [address] [place] [address] [phone] Social History Tobacco Use Types Packs/Day Years [...] 03/06/2025 8:00 AM CDT Infusion Therapy Visit [facility] [address] [place] [address] Danni Aguillon MD [address] [place] [address] 05/15/2025 3:00 PM CDT Office Visit [facility] Neurology [address] [phone] Danni Aguillon MD [address] [place] [phone] documented as of this encounter Visit Diagnoses Not on filedocumented in this encounter Care Teams Hydraulic Corrugating Machine Operator Relationship Specialty Start Date End Date No Ref-Primary, Physician PCP - General 10/12/22 Danni Aguillon MD [address] [place] [address] [phone] Assigned Neuroscience Provider 12/06/22 documented as of this encounter
--- OUTSIDE RECORDS SUMMARY | 2025-02-11 20:07 | XMS_ITS | Encounter Summary ---
Author Organization [facility] Address [address] [place] [address] Care Team Providers Care Airport Attendant Name Role Phone Danni Aguillon MD Primary Care Provider [phone]- [phone] Reason for Visit * Reason Comments Follow-up Encounter Details Date Type Department Care Team (Late st Contact Info) Description 02/07/2025 Telephone Obstetrics & Gynecology at [address] [address] Rachell Jordan MD [address] [place] [address] [phone] Follow-up Social History Tobacco Use Types Packs/Day Years [...] Industry Job Start Date Job End Date [employer] Not on file Not on file Not on file documented as of this encounter Nursing Notes * Emelia Terrell RN - 02/07/2025 3:10 PM CDT Images from the original note were not included. Vangie Jordan MD5 hours ago (9:23 AM) MC I???ve been passing some tissue/clots which wasn???t really surprising to me as they were small. Today I???ve been passing some large ones - a little larger than a 50 cent piece and there were a few of them. Is this normal? I???m not soaking a pad in less than an hour, but passing these large clotsand with the intense cramps, I just want to make sure. Called and spoke with the patient regarding her above mychart message that we received. The patienthad a suction D&C on 02/03 for an MAB. Patient stated that today she was passing small clots and then later in the morning passed a clot that was the size of a golf ball. Was passing smaller clots and about an hour ago passed another golfball size clot. Is soaking a maxi pad every couple of hours and has gone through a total of 4 maxi pads today. Denies any dizziness/lightheadedness, fever, or foul smelling discharge. Is having cramping as well, but is being controlled with a heating pad and ibuprofen. I did go and speak with Dr. Muñoz who is in clinic to go over this patients symptoms. Dr. Muñoz suggested that the patient be seen tomorrow to rule out retained products. I did find an appointment with Dr. Mosqueda in the office at 11 am and was told could use the hold.Patient is also scheduled for an US appointment in at 9 am. The patient did say that she will come in for those appointments tomorrow. I gave her bleeding precautions as well: saturating a maxi pad front to back side to side in an hour for greater than 3 hours, severe cramping to where she is robert bled over, and passing more golf ball size clots to go into the ER for evaluation. All questions answered. Emelia DUFFY documented in this encounter Plan of Treatment Upcoming Encounters Date Type Department Care Team (Late st Contact Info) Description 02/12/2025 12:00 PM CDT Appointment Laboratory at [facility] [address] [place] [address] 02/13/2025 1:40 PM CDT Appointment [facility] OB-JOURNALISTS AND OTHER WRITERS Ultrasound [place] [address] [place] [address] Tia Mosqueda MD [address] [place], [place] [address] 02/23/2025 12:40 PM CDT Appointment Obstetrics & Gynecology at [facility] [address] [place] [address] Rachell Jordan MD [address] [place] [address] documented as of this encounter Visit Diagnoses Not on filedocumented in this encounter Care Teams Airport Attendant Relationship Specialty Start Date End Date Danni Aguillon MD [address] [place] [address] PCP - General Neurology 01/09/19 documented as of this encounter
--- OUTSIDE RECORDS SUMMARY | 2025-02-11 20:07 | XMS_ITS | Encounter Summary ---
Author Organization [facility] Address [address] [place] [address] Care Team Providers Care Baker Biscuit Name Role Phone No Ref-Primary, Physician Primary Care Provider Danni Aguillon MD Unavailable + [phone] Encounter Details Date Type Department Care Team (Late st Contact Info) Description 12/23/2024 MyC Medical Advice Initial Department Aneesh Shaw [...] 03/06/2025 8:00 AM CDT Infusion Therapy Visit [facility] [address] [place] [address] [address] [place] [address] Danni Aguillon MD [address] [place], [place] [address] 05/15/2025 3:00 PM CDT Office Visit [facility] [place] [address] [place] [address] Danni Aguillon MD [address] [place] [address] documented as of this encounter Visit Diagnoses Not on filedocumented in this encounter Care Teams Baker Biscuit Relationship Specialty Start Date End Date No Ref-Primary, Physician PCP - General 10/12/22 Danni Aguillon MD [address] [place] [address] Assigned Neuroscience Provider 12/06/22 documented as of this encounter
--- OUTSIDE RECORDS SUMMARY | 2025-02-11 20:07 | XMS_ITS | Encounter Summary ---
Author Organization [facility] Address [address] [place] [address] Care Team Providers Care Can Sorter Name Role Phone No Ref-Primary, Physician Primary Care Provider Danni Aguillon MD Unavailable [phone] Encounter Details Date Type Department Care Team (Late st Contact Info) Description 02/03/2025 MyC Medical Advice [facility] [address] [address] Danni Aguillon MD [address] [place] [address] [phone] Social History Tobacco Use Types Packs/Day Years [...] Infusion Therapy Visit [facility] [address] [place] [address] Danni Aguillon MD [address] [place] [address] 05/15/2025 3:00 PM CDT Office Visit [facility] [address] [phone] Danni Aguillon MD [address] [place] [address] 835155 documented as of this encounter Visit Diagnoses Not on filedocumented in this encounter Care Teams Can Sorter Relationship Specialty Start Date End Date No Ref-Primary, Physician PCP - General 10/12/22 Danni Aguillon MD [address] [place] [address] [phone] Assigned Neuroscience Provider 12/06/22 documented as of this encounter
--- OUTSIDE RECORDS SUMMARY | 2025-02-11 20:08 | XMS_ITS | Encounter Summary ---
Author Organization [facility] Address [address], [place] [address] Care Team Providers Care Space Sciences Director Name Role Phone Danni Aguillon MD Primary Care Provider [phone] Encounter Details Date Type Department Care Team (Late st Contact Info) Description 01/07/2025 11:20 AM REHAB PHYSICIAN Lab Visit Laboratory at [address] [address] Positive test Social History Tobacco Use Types Packs/Day Years Used Date Smoking Tobacco: Never Passive Smoke Exposure: Never Smokeless Tobacco: Never Alcohol Use Standard Drinks/Week Comments Not Currently 0 (1 standard drink = 0.6 oz pur e alcohol) occ social alc usage per pt PHQ-2 Answer Date Recorded PHQ-2 Score 2 07/08/2023 Depression Answer Date Recor ded Last EPDS Total Score 3 12/10/2024 Last EPDS Self Harm Result Not on file 12/10 Comments Yes Sex and Gender Information Value Date Recorded Sex Assigned at Not on file Legal Sex Female 5:17 AM CDT Gender Identity Not on file Sexual Orientation Not on file Occupation Industry Job Start Date Job End Date [employer] Not on file Not on file Not on file documented as of this encounter Plan of Treatment Upcoming Encounters Date Type Department Care Team (Late st Contact Info) Description 02/12/2025 12:00 PM CDT Appointment Laboratory at [address] [address] 02/13/2025 1:40 PM CDT Appointment [facility] OB-TILTROTOR CREW CHIEF Ultrasound [place] [address] [place], [place] [address] Tia Mosqueda MD [address] [place] [address] 02/23/2025 12:40 PM CDT Appointment Obstetrics & Gynecology at [address] [address] Rachell Jordan MD [address] [place] [address] documented as of this encounter Procedures Procedure Name Priority Date/Time Associated Diagnosis Comments HCG, QUANTITATIVE, SERUM Same Day 01/07/2025 11:35 AM REHAB PHYSICIAN Positive test documented in this encounter Results * (ABNORMAL) HCG, Quantitative, Serum (01/07/2025 11:35 AM REHAB PHYSICIAN) HCG, Quantitative 37,474(H) <=4 mIU/mL 01/07/2025 7:16 PM REHAB PHYSICIAN [facility] Blood Venipuncture / Unknown 01/07/2025 11:35 AM REHAB PHYSICIAN 01/07/2025 11:41 AM REHAB PHYSICIAN [facility] - 01/07/2025 7:16 PM REHAB PHYSICIAN Expected ranges Negative: <5 mIU/mL Indeterminate: 5-25 mIU/mL Positive: >25 mIU/mL Suggest repeat testing of indeterminate result in 72 hours. us Rachell Jordan MD LAB_1 Final Result [address] [address], [facility] documented in this encounter Visit Diagnoses Diagnosis Positive test examination or test, positive result documented in this encounter Care Teams Space Sciences Director Relationship Specialty Start Date End Date Danni Aguillon MD [address] [place] [address] PCP - General Neurology 01/09/19 documented as of this encounter
--- OUTSIDE RECORDS SUMMARY | 2025-02-11 20:08 | XMS_ITS | Encounter Summary ---
Author Organization [facility] Address [address] [place] [address] Care Team Providers Care Tube Sizer And Cutter Operator Name Role Phone Danni Aguillon MD Primary Care Provider [phone] Reason for Referral * Procedure/Equipment (Routine) - Incomplete Specialty Diagnoses / Procedures Referred By Contac t Referred To Contact Diagnoses S/P D&C (status post dilation and curettage) Procedures OBGYN Pelvic/Freelance Translator Ultrasound Tia Mosqueda MD [address] [place] [address] Phone: tel: fax: Referral ID Status Reason Start Date Expiration Date V isits Requested Visits Authorized [id number] Incomplete 02/10/2025 05/12/2026 1 1 Reason for Visit * Reason Comments QUESTIONS, GENERAL Entered automaticall y based [facility] Encounter Details Date Type Department Care Team (Late st Contact Info) Description 02/09/2025 11:00 AM CDT E-Visit [facility] OB-WAITER/WAITRESS FIRST CLASS [employer] [address] [place] [address] Tia Mosqueda MD [address] [place] [address] Dx: S/P D&C (status post dilation and curettage) (Primary Dx) Social History Tobacco Use Types [...] Industry Job Start Date Job End Date [employer] Not on file Not on file Not on file documented as of this encounter Progress Notes * Ani Roper RN - 02/10/2025 3:10 PM CDTAddended by: ANI ROPER on: 02/10/2025 03:10 PM Modules accepted: Orders documented in this encounter Nursing Notes * Ani Roper RN - 02/10/2025 3:05 PM CDT Patient reports her bleeding has slowed way down. Patient reports she is currently barely spotting.Patient denies abdominal pain. Informed patient of Tia Mosqueda MD comments/recommendations. Bleeding precautions reviewed again. Transferred patient to [facility] to assist patient with scheduling US on Tuesday 02/13. NERY Holliday 02/10/2025, 3:10 PM BL FLOAT PHLEBOTOMIST * Ani Roper RN - 02/10/2025 2:50 PM CDT Left message to call back. NERY Holliday 02/10/2025, 2:53 PM BL FLOAT PHLEBOTOMIST * Ani Roper RN - 02/10/2025 8:07 AM CDT Will send to provider to review and advise. Patient reports she passed 2 very large clots last night. Patient reports the first clot was jello consistency and larger than a Cutie jade. The second clot was much firmer and about the size of a plum. Patient reports she also passed a shannon-size clot later last night. Since passing the clots, patient reports she has had heavier bleeding. Blood is bright red in color. Denies odor. Patient reports she wore a Depends last night, which lasted all throughout the night.Patient changed her Depends about 1.5 hours ago, but it was not drenched. Patient reports she is currently wearing a Depends, because she is not good with pad placement in her underwear. Patient reports she thinks she'll be able to wear this Depends for at least a few hours before it needs to be changed again. Patient reports she when she wipes, it looks like a heavy flow. Reassured patient that she is able to wear a pad or Depends for a few hours without it being saturated. Bleeding precautions reviewed. Patient denies abdominal pain, fever, chills, dizziness/faintness. NERY Holliday 02/10/2025, 8:19 AM BL FLOAT PHLEBOTOMIST * Ani Roper RN - 02/09/2025 2:59 PM CDT Triage to call patient tomorrow [phone] AM. Informed patient that if she doesn't pass a larger clot(s) by tomorrow AM, clinic can send message to provider to review and advise on possible IPAS. Patient reports she would prefer nurses reach outto her tomorrow morning, as sometimes the wait time on hold can take awhile. Patient stated understanding and appreciation, and agreed with the plan. NERY Holliday 02/09/2025, 3:05 PM BL FLOAT PHLEBOTOMIST documented in this encounter Plan of Treatment Upcoming Encounters Date Type Department Care Team (Late st Contact Info) Description 02/12/2025 12:00 PM CDT Appointment Laboratory at [facility] [address] [place] [address] 02/13/2025 1:40 PM CDT Appointment [facility] OB-WAITER/WAITRESS FIRST CLASS Ultrasound [employer] [address] [place] [address] Tia Mosqueda MD [address] [place], [place] [address] 02/23/2025 12:40 PM CDT Appointment Obstetrics & Gynecology at [facility] [address] [place] [address] Rachell Jordan MD [address] [place] [address] Scheduled Orders Name Type Priority Associated Diagnoses Orde r Schedule OBGYN Pelvic/Freelance Translator Ultrasound Imaging New Routine S/P D&C (status post dilation and curettage) Expected: 02/10/2025 (Approximate), Expires: 02/10/2026 documented as of this encounter Visit Diagnoses Diagnosis S/P D&C (status post dilation and curettage)- Primary Other postprocedural status documented in this encounter Care Teams Tube Sizer And Cutter Operator Relationship Specialty Start Date End Date Danni Aguillon MD [address] [place] [address] PCP - General Neurology 01/09/19 documented as of this encounter
--- OUTSIDE RECORDS SUMMARY | 2025-02-11 20:08 | XMS_ITS | Encounter Summary ---
Author Organization [facility] Address [address] [place] [address] Care Team Providers Care Hydrometer Finisher Name Role Phone Danni Aguillon MD Primary Care Provider [phone] Reason for Visit * Procedure/Equipment (Routine) - Incomplete Specialty Diagnoses / Procedures Referred By Contac t Referred To Contact Diagnoses Missed ab Procedures OBGYN First Trimester Ultrasound OBGYN First Trimester Ultrasound Rachell Jordan MD [address] [place] [address] Phone: tel: fax: Referral ID Status Reason Start Date Expiration Date V isits Requested Visits Authorized [id number] Incomplete 01/19/2025 04/20/2026 1 1 Encounter Details Date Type Department Care Team (Latest Contact Info) Description 02/02/2025 7:40 AM CDT Ancillary Procedure director day care center Ultrasound at [address] [address] Rachell Jordan MD [address] [place] [address] Supervision of high risk in first trimester; Missed ab Social History Tobacco Use Types Packs/Day Years [...] Industry Job Start Date Job End Date [employer] Not on file Not on file Not on file documented as of this encounter Plan of Treatment Upcoming Encounters Date Type Department Care Team (Late st Contact Info) Description 02/12/2025 12:00 PM CDT Appointment Laboratory at [facility] [address] [place] [address] 02/13/2025 1:40 PM CDT Appointment [facility] OB-AUTO CARE CENTER MANAGER Ultrasound [place] [address] [place], [place] [address] Tia Mosqueda MD [address] [place] [address] 02/23/2025 12:40 PM CDT Appointment Obstetrics & Gynecology at [address] [phone] Rachell Jordan MD [address] [place] [phone] documented as of this encounter Procedures Procedure Name Priority Date/Time Associated Diagnosis Comments OBGYN FIRST TRIMESTER ULTRASOUND Routine 02/02/2025 8:16 AM CDT Missed ab documented in this encounter Results * (ABNORMAL) OBGYN First Trimester Ultrasound (02/02/2025 8:16 AM CDT) Left Ovary Perpendicular Diameter (Height) 2.10 cm EXTERNAL RESULTS Left Ovary Longitudinal Diameter (Length) 3.50 cm EXTERNAL RESULTS Left Ovary Hilum-Cortex Diameter (Width) 2.30 cm EXTERNAL RESULTS Left Ovary Volume 8.85 ml EX TERNAL RESULTS Right Ovary Perpendicular Diameter (Height) 1.40 cm EXTERNAL RESULTS Right Ovary Longitudinal Diameter (Length) 3.40 cm EXTERNAL RESULTS Right Ovary Hilum-Cortex Diameter (Width) 2.00 cm EXTERNAL RESULTS Right Ovary Volume 4.98 ml E XTERNAL RESULTS Anatomical Region Laterality Modality Pelvis Ultrasound Study GA Study Date Study TARA Working TARA (Source) 9w3d 02/02/2025 09/04/2025 09/02/2025 (Ultrasound) Fetus 1 Measurements Value GA (days) GA by US Calc 66 days 66 FHR Gest Sac 4.79 cm 73 Yolk Sac CRL 2.64 cm 66 NT BPD OFD HC AC FL HL CI FL/BPD FL/AC HC/AC UAR - PSV UAR - S/D Ratio UAR - RI UAR - PI MCA - PSV MCA - S/D Ratio MCA - PI Lateral Ventricle CER Cisterna Magna IRAIDA Foot Narrative 02/02/2025 8:24 AM CDT Table formatting from the original result was not included. Images from the original result were not included. Vangie Brunner Obstetrics Report Date: 02/02/2025 front tender Ultrasound At [address] [address] Dept Patient Information Name: Vangie Brunner : 1990 (34 y.o.) (F) BMI: 40.66 kg/m Date: 02/02/2025 8:17 AM Performed By Floodplain Manager(s) initials: DP Attending: Gurwinder Avalos MD Referred by: Rachell Jordan MD Referring location: [facility] Procedure OBGY FIRST TRIMESTER ULTRASOUND Indications Missed ab Gestational Age LMP: 11/18/2024 GA by Today's US: 9w3d Working GA: 9w5d Working TARA: 09/02/2025, by Ultrasound Maternal Evaluation Cervix Appears Normal Approach Endovaginal Endovaginal scan done to better assess Early gestation Cul-de-sac No fluid seen Uterus Appears Normal Right Ovary Appears Normal Left Ovary Appears Normal Right Adnexa Appears Normal Left Adnexa Appears Normal Ultrasound Findings Fetus 1 Evaluation Cardiac Activity Absent Gestation Type Cunningham First Trimester Gestational Sac normal Pole present Yolk Sac not seen Amnion seen Biometry Heart Rate: Gest Sac 4.79 cm 79% 10w3d CRL 2.64 cm 15% 9w3d Estimated FW: No EFW calculated for this study Floodplain Manager Comments Results notified to AV OB triage team. Impression Demise at 9w3d size with absence of cardiac activity, patient was thought to be 9w5d based on prior 7 week ultrasound. Recommendations The patient is informed of the ultrasound findings by the physician and will follow up with her obstetrical provider. Gurwinder Avalos MD us Rachell Jordan MD RAD US Final Result documented in this encounter Visit Diagnoses Diagnosis Supervision of high risk in first trimester Unspecified high-risk Missed ab Missed documented in this encounter Care Teams Hydrometer Finisher Relationship Specialty Start Date End Date Danni Aguillon MD [address] [place] [address] PCP - General Neurology 01/09/19 documented as of this encounter
--- OUTSIDE RECORDS SUMMARY | 2025-02-11 20:08 | XMS_ITS | Encounter Summary ---
Author Organization [facility] Address [address] [place] [address] Care Team Providers Care Gun Stocker Name Role Phone No Ref-Primary, Physician Primary Care Provider Danni Aguillon MD Unavailable [phone] Encounter Details Date Type Department Care Team (Late st Contact Info) Description 12/31/2017 Records - [facility] CONVERSION Scan, Provider Social History Tobacco Use Types Packs/Day Years Used Date Smoking Tobacco: Never Assessed Comments Unknown Sex and Gender Information Value Date Recorded Sex Assigned at Not on file Legal Sex Female 7:56 AM CDT Gender Identity Female 08/12/2024 10:44 AM CDT Sexual Orientation Not on file documented as of this encounter Plan of Treatment Upcoming Encounters Date Type Department Care Team (Late st Contact Info) Description 03/06/2025 8:00 AM CDT Infusion Therapy Visit [facility] [address] [phone] Danni Aguillon MD [address] [place] [address] [phone] 05/15/2025 3:00 PM CDT Office Visit [facility] [address] [phone] Danni Aguillon MD [address] [place] [address] [phone] documented as of this encounter Procedures Procedure Name Priority Date/Time Associated Diagnosis Comments MRI IMAGING - HIM SCAN 12/31/2017 documented in this encounter Results * MRI IMAGING - HIM SCAN (12/31/2017) Anatomical Region Laterality Modality Other us Historical Provider IMG MRI ORDERABLES Final Res ult documented in this encounter Visit Diagnoses Not on filedocumented in this encounter Additional Health Concerns Infection Onset Date Last Indicated Resolved Time Rule Out COVID-19 10/12/2022 10/12/2022 10/13/2022 8:12 PM DIRECTOR WATER [employer] W[employer]E SERVICES documented as of this encounter Care Teams Gun Stocker Relationship Specialty Start Date End Date No Ref-Primary, Physician PCP - General 10/12/22 Danni Aguillon MD [address] [place] [address] Assigned Neuroscience Provider 12/06/22 documented as of this encounter
--- OUTSIDE RECORDS SUMMARY | 2025-02-11 20:08 | XMS_ITS | Encounter Summary ---
Author Organization [facility] Address [address] [place] [address] Care Team Providers Care Service Liaison Representative Name Role Phone Danni Aguillon MD Primary Care Provider [phone] Encounter Details Date Type Department Care Team (Late st Contact Info) Description 02/02/2025 Results Follow-Up Obstetrics & Gynecology at [address] [address] Emelia Terrell, RN Social History Tobacco Use Types Packs/Day [...] Industry Job Start Date Job End Date [employer] Not on file Not on file Not on file documented as of this encounter Progress Notes * Rachell Jordan MD - 02/02/2025 12:30 PM CDT Called Vangie to review options for management of missed AB. She desires suction D&C. Plans chromosome testing. Reviewed procedure and risks. Orders placed, she desires KARLO. documented in this encounter Plan of Treatment Upcoming Encounters Date Type Department Care Team (Late st Contact Info) Description 02/12/2025 12:00 PM CDT Appointment Laboratory at [facility] [address] [place] [address] 02/13/2025 1:40 PM CDT Appointment [facility] OB-DIRECTOR OF SEARCH ENGINE MARKETING Ultrasound [place] [address] [place], [place] [address] Tia Mosqueda MD [address] [place] [address] 02/23/2025 12:40 PM CDT Appointment Obstetrics & Gynecology at [address] [address] Rachell Jordan MD [address] [place] [address] documented as of this encounter Visit Diagnoses Not on filedocumented in this encounter Care Teams Service Liaison Representative Relationship Specialty Start Date End Date Danni Aguillon MD [address] [place] [address] PCP - General Neurology 01/09/19 documented as of this encounter
--- OUTSIDE RECORDS SUMMARY | 2025-02-11 20:08 | XMS_ITS | Encounter Summary ---
Author Organization Formerly [facility] Address [address] [place] [address] Care Team Providers Care Utilities Estimator And Drafter Name Role Phone Danni Aguillon MD Primary Care Provider [phone] Encounter Details Date Type Department Care Team (Late Contact Info) Description 01/31/2025 E-Visit [facility] Maternal Medicine [address] [place] [id number] Colin, [place] [address] Social History Tobacco Use Types Packs/Day Years [...] Industry Job Start Date Job End Date [employer] Not on file Not on file Not on file documented as of this encounter Plan of Treatment Upcoming Encounters Date Type Department Care Team (Late Contact Info) Description 02/12/2025 12:00 PM CDT Appointment Laboratory at [facility] [id number] [place] [phone] 02/13/2025 1:40 PM CDT Appointment [facility] OB-CRUISE COUNSELOR Ultrasound [place] [address] [place] [address] Tia Mosqueda MD [address] [place] [address] 02/23/2025 12:40 PM CDT Appointment Obstetrics & Gynecology at [address] [phone] Rachell Jordan MD [address] [place] [address] documented as of this encounter Visit Diagnoses Not on filedocumented in this encounter Care Teams Utilities Estimator And Drafter Relationship Specialty Start Date End Date Danni Aguillon MD [address] [place] [address] PCP - General Neurology 01/09/19 documented as of this encounter
--- OUTSIDE RECORDS SUMMARY | 2025-02-11 20:08 | XMS_ITS | Encounter Summary ---
Author Organization [facility] Address [address] [place] [address] Care Team Providers Care Elephant Keeper Name Role Phone Danni Agiullon MD Primary Care Provider [phone] Reason for Visit * Procedure/Equipment (Routine) - Incomplete Specialty Diagnoses / Procedures Referred By Contac t Referred To Contact Diagnoses Establish gestational age, ultrasound Procedures OBGYN First Trimester Ultrasound Nikole Winkler APRN, [facility] [address] [place] [address] Phone: tel: fax: Referral ID Status Reason Start Date Expiration Date V isits Requested Visits Authorized [id number] Incomplete 01/16/2025 04/17/2026 1 1 Encounter Details Date Type Department Care Team (Latest Contact Info) Description 01/16/2025 7:40 AM CDT 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 [address] [phone] Nikole Winkler, SARA, [facility] [address] [place] [address] Establish gestational age, ultrasound Social History Tobacco Use Types Packs/Day Years [...] EPDS Self Harm Result Not on file 02/08 /2025 Comments Yes Sex and Gender Information Value Date Recorded Sex Assigned at Not on file Legal Sex Female 5:17 AM CDT Gender Identity Not on file Sexual Orientation Not on file Occupation Industry Job Start Date Job End Date [employer] Not on file Not on file Not on file documented as of this encounter Plan of Treatment Upcoming Encounters Date Type Department Care Team (Late st Contact Info) Description 02/12/2025 12:00 PM CDT Appointment Laboratory at [facility] [address] [place] [address] 02/13/2025 1:40 PM CDT Appointment [facility] 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 [place], [place] [phone] Tia Mosqueda MD [address] [place] [address] 02/23/2025 12:40 PM CDT Appointment Obstetrics & Gynecology at [facility] [id number] [place] [phone] Rachell Jordan MD [address] [place] [phone] documented as of this encounter Procedures Procedure Name Priority Date/Time Associated Diagnosis Comments OBGYN FIRST TRIMESTER ULTRASOUND Routine 01/16/2025 7:51 AM CDT Establish gestational age, ultrasound documented in this encounter Results * (ABNORMAL) OBGYN First Trimester Ultrasound (01/16/2025 7:51 AM CDT) Left Ovary Perpendicular Diameter (Height) 2.20 cm EXTERNAL RESULTS Left Ovary Longitudinal Diameter (Length) 3.30 cm EXTERNAL RESULTS Left Ovary Hilum-Cortex Diameter (Width) 2.00 cm EXTERNAL RESULTS Left Ovary Volume 7.60 ml EX TERNAL RESULTS Right Ovary Perpendicular Diameter (Height) 1.80 cm EXTERNAL RESULTS Right Ovary Longitudinal Diameter (Length) 2.80 cm EXTERNAL RESULTS Right Ovary Hilum-Cortex Diameter (Width) 2.00 cm EXTERNAL RESULTS Right Ovary Volume 5.28 ml E XTERNAL RESULTS Anatomical Region Laterality Modality Pelvis Ultrasound Study GA Study Date Study TARA Working TARA (Source) 7w2d 01/16/2025 09/02/2025 08/25/2025 (Last Menstrua l Period) Fetus 1 Measurements Value GA (days) GA by US Calc 51 days 51 FHR 135 bpm Gest Sac Yolk Sac 2.9 mm CRL 1.15 cm 51 NT BPD OFD HC AC FL HL CI FL/BPD FL/AC HC/AC UAR - PSV UAR - S/D Ratio UAR - RI UAR - PI MCA - PSV MCA - S/D Ratio MCA - PI Lateral Ventricle CER Cisterna Magna IRAIDA Foot Narrative 01/16/2025 8:39 AM CDT Table formatting from the original result was not included. Images from the original result were not included. 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 [address] [phone] Dept Patient Information Name: Vangie Brunner : 1990 (34 y.o.) (F) BMI: 40.55 kg/m Date: 01/16/2025 8:38 AM Performed By Roller Print Tender(s) initials: DP Attending: Layla Velez MD Referred by: Nikole Winkler APRN, [facility] R[facility]ER Referring location: [facility] Procedure OBGYN FIRST TRIMESTER ULTRASOUND Indications Establish gestational age, ultrasound Gestational Age LMP: 11/18/2024 GA by Today's US: 7w2d Working GA: 8w3d Working TARA: 08/25/2025, by Last Menstrual Period Maternal Evaluation Cervix Appears Normal Approach Endovaginal Endovaginal scan done to better assess Early gestation Cul-de-sac No fluid seen Uterus Appears Normal Right Ovary Appears Normal Left Ovary Appears Normal Right Adnexa Appears Normal Left Adnexa Appears Normal Ultrasound Findings Fetus 1 Evaluation Cardiac Activity Present Gestation Type Cunningham First Trimester Gestational Sac normal Pole present Yolk Sac seen Biometry Heart Rate: 135 bpm Yolk Sac 2.9 mm CRL 1.15 cm < 1% 7w2d Estimated FW: No EFW calculated for this study Roller Print Tender Comments GA by Ultrasound is 7w2d +/- 5 days. (TARA by Ultrasound is 09/02/25) Clinical TARA Estimated Date of Delivery: 08/25/25 (by LMP) = 8w3d Impression Cunningham live Intrauterine at 7w2d +/- 5 days by today's ultrasound. TARA by ultrasound today is 09/02/2025, which is inconsistent with LMP Estimated Date of Delivery: 08/25/25. Recommend using TARA of 09/02/2025. Normal appearing uterus and adnexa. Please refer to updated Dating section. Primary provider to review final TARA. Recommendations The patient is informed of the ultrasound findings by the physician and will follow up with her obstetrical provider. Layla Velez MD us Nikole Winkler APRN, [facility] R[facility]ER RAD US Final R esult documented in this encounter Visit Diagnoses Diagnosis Establish gestational age, ultrasound Encounter for routine screening for malformation using ultrasonics documented in this encounter Care Teams Elephant Keeper Relationship Specialty Start Date End Date Danni Aguillon MD [address] [place] [address] PCP - General Neurology 01/09/19 documented as of this encounter
--- OUTSIDE RECORDS SUMMARY | 2025-02-11 20:08 | XMS_ITS | Clinical Summary ---
[facility] Address [address] [place] [address] Care Team Providers Care General Dentist/Owner Name Role Phone Danni Aguillon MD Primary Care Provider [phone] Source Comments You are receiving this document as you are listed as the primary care provider,follow-up provider, or the patient has been referred to you for consultation.This is in compliance with the Medicare and[facility] EHR Incentive Program,which states Providers who transition their patient to another setting of careor provider of care or refers their patient to another provider of care shouldprovide summary care record for each transition of care or referral. [place] Allergies Active Allergy Reactions Criticality Noted Date Comments Amoxicillin Other, see comments 01/09/2024 Medications ocrelizumab (OCREVUS) 300 MG/10ML injection every 6 (six) months Active sertraline (ZOLOFT) 50 MG tabletIndicati ons:Anxiety and depression (HRC) Take 1 Tablet (50 mg) by mouth daily. 30 Tablet 3 5 01/20/20 26 Active acetaminophen (TYLENOL) 325 MG tablet Take 2 Tablets (650 mg) by mouth every 6 hours as needed for Pain. 5 Active ibuprofen (MOTRIN) 600 MG tablet Take 1 Tablet (600 mg) by mouth every 6 hours as needed for Pain. 5 Active methylergonovi ne (METHERGINE) 0.2 MG tablet Take 1 Tablet (0.2 mg) by mouth every 8 hours. 3 Tablet 5 Active sertraline (ZOLOFT) 25 MG tabletIndicati ons:Anxiety and depression (HRC) Take 1 Tablet (25 mg) by mouth daily. 90 Tablet 3 5 01/20/20 25 Discontinued( *Med change OR same med OR reorder, new dose/directio ns) metoclopramide (REGLAN) 10 MG tabletIndicati ons:Nausea and vomiting in Take 1 Tablet (10 mg) by mouth 4 times daily as needed for Nausea or Vomiting. 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 01/11/2018 Multiple sclerosis 07/12/2014 Overview (08/11/2022): Tysabri infusions Balance problems 07/12/2014 ACL tear 12/02/2011 Resolved Problems Problem Noted Date Diagnosed Date Resolved Date Careplan: Healthy Beginnings 01/23/2025 02/02/2025 Abdominal pain affecting 03/09/2023 01/28/2024 Vision abnormalities 07/18/2014 014 Impaired instrumental activi ties of daily living 07/18/2014 08/02/2014 Mild persistent asthma 06/27/200902/11 Disturbance of skin sensation 01/09/2009 08/11/2022 Metrorrhagia 10/24/2008 08/15/2022 Xyphoidalgia 2008 08/11/2022 Exercise-induced asthma 07/27/200712/04 Encounters Date Type Department Care Team Description 02/09/2025 11:00 AM CDT E-Visit [facility] OB-DIESEL MECHANIC HEL[facility] [place] [address] [place] [address] Tia Mosqueda MD Dx: S/P D&C (status post dilation and curettage) (Primary Dx) 02/08/2025 11:00 AM CDT Office Visit [facility]IES[facility] [place] [address] [place] [address] Tia Mosqueda MD Hematometra (Primary Dx); S/P D&C (status post dilation and curettage) 02/08/2025 9:00 AM CDT Ancillary Procedure catalog librarian Ultrasound at [address] [phone] Cayla Muñoz MD Missed ; Abnormal uterine bleeding 02/08/2025 Results Follow-Up [facility] Obstetrics and Gynecology [address] [place] [phone] Liseth Foley RN 02/08/2025 Results Follow-Up [facility] Obstetrics and Gynecology [address] [place] [phone] Liseth Foley RN 02/07/2025 Notes/Orders Obstetrics & Gynecology at [address] [phone] Cayla Muñoz MD Missed (Primary Dx) 02/07/2025 Telephone Obstetrics & Gynecology at [address] [phone] Rachell Jordan MD Follow-up 02/03/2025 2:17 PM CDT Anesthesia Event [facility] Surgery [address] [address] Faustino Connelly MD Meek, Ashley D, VENDING MACHINE COLLECTOR, ACCOUNTS RECEIVABLE CLERK 02/03/2025 1:55 PM CDT - 02/03/2025 2:45 PM CDT Surgery [facility] Surgery [address] [address] Toby Baca MD SUCTION CURETTAGE UTERUS 02/03/2025 12:16 PM CDT - 02/03/2025 3:43 PM CDT Hospital Encounter [facility] Surgery [address] [address] Toby Baca MD Missed Discharge Disposition: Home 02/02/2025 2:20 PM CDT E-Visit Obstetrics & Gynecology at [address] [phone] Rachell Jordan MD Chief Comp: RESULTS, TEST 02/02/2025 7:40 AM CDT Ancillary Procedure catalog librarian Ultrasound at [address] [phone] Rachell Jordan MD Supervision of high risk in first trimester; Missed ab 02/02/2025 E-Visit [facility] OB Ultrasound [address] [place] [phone] Mychart, Generic Provider 02/02/2025 Telephone Obstetrics & Gynecology at [address] [phone] Rachell Jordan MD 02/02/2025 E-Visit [facility] [address] [place] [phone] Mychart, Generic Provider 02/02/2025 Telephone Obstetrics & Gynecology at [address] [phone] Yoselin Everett, ENGINE DISPATCHER Follow-up 02/02/2025 Prep for Surgery Obstetrics & Gynecology at [address] [phone] Rachell Jordan MD Missed (Primary Dx) 02/02/2025 Results Follow-Up Obstetrics & Gynecology at [address] [phone] Emelia Terrell RN 01/31/2025 E-Visit [facility] Maternal Medicine [address] [place] [phone] Mychart, Generic Provider 01/26/2025 Results Follow-Up Obstetrics & Gynecology at [address] [phone] Wanda Sinha RN 01/25/2025 10:25 AM CDT Lab Visit Laboratory at [address] [phone] Positive urine drug screen 01/25/2025 Orders Only Obstetrics & Gynecology at [address] [phone] Rachell Jordan MD Positive urine drug screen (Primary Dx) 01/20/2025 6:00 PM CDT E-Visit [facility] [address] [place] [phone] Laure Jordan APRN, CNM Chief Comp: RESULTS, TEST 01/20/2025 Results Follow-Up Obstetrics & Gynecology at [address] [phone] Wanda Sinha RN 01/19/2025 2:05 PM CDT Lab Visit Laboratory at [address] [phone] Supervision of high risk in first trimester; Routine screening for STI (sexually transmitted infection); History of gestational hypertension 01/19/2025 1:20 PM CDT Initial Obstetrics & Gynecology at [address] [phone] Rachell Jordan MD Ob Exam, Initial (No concerns. Doing well. ) 01/16/2025 7:40 AM CDT Ancillary Procedure catalog librarian Ultrasound at [address] [phone] Nikole Winkler APRN, TEACHER DRAMATICS Establish gestational age, ultrasound 01/11/2025 10:45 PM CDT E-Visit Obstetrics & Gynecology at [address] [phone] Rachell Jordan MD Dx: Nausea and vomiting in (Primary Dx) 01/07/2025 11:20 AM HANDWRITING EXPERT Lab Visit Laboratory at [address] [phone] Positive test 01/05/2025 11:10 AM HANDWRITING EXPERT Lab Visit Laboratory at [address] [phone] Positive test 01/05/2025 Results Follow-Up Obstetrics & Gynecology at [address] [phone] Emelia Terrell RN 01/04/2025 7:50 PM HANDWRITING EXPERT E-Visit Obstetrics & Gynecology at [address] [phone] Nikole Winkler, SARA, TEACHER DRAMATICS Dx: Positive test (Primary Dx) 01/03/2025 7:40 AM HANDWRITING EXPERT Ancillary Procedure catalog librarian Ultrasound at [address] [phone] Nikole Winkler, SARA, COCO Positive test; Anxiety and depression (HRC); Establish gestational age, ultrasound; History of miscarriage, currently ; Vaginal bleeding in , first trimester; Maternal obesity, antepartum, first trimester 01/03/2025 Results Follow-Up Obstetrics & Gynecology at [address] [phone] Lorena Gamez RN 01/03/2025 Notes/Orders catalog librarian Ultrasound at [address] [phone] Nikole Winkler, SARA, TEACHER DRAMATICS Establish gestational age, ultrasound (Primary Dx) 01/02/2025 7:50 PM HANDWRITING EXPERT E-Visit Obstetrics & Gynecology at [address] [phone] Rachell Jordan MD Chief Comp: QUESTIONS, GENERAL 01/02/2025 Results Follow-Up Obstetrics & Gynecology at [address] [phone] Wanda Sinha RN 01/01/2025 8:20 PM HANDWRITING EXPERT E-Visit Obstetrics & Gynecology at [address] [phone] Rachell Jordan MD Chief Comp: QUESTIONS, GENERAL 12/31/2024 12:40 PM HANDWRITING EXPERT Lab Visit Laboratory at [address] [phone] Bleeding in early ; SAB (spontaneous ); Spotting in early 12/29/2024 12:40 PM HANDWRITING EXPERT Lab Visit Laboratory at [address] [phone] Spotting in early 12/29/2024 Telephone Obstetrics & Gynecology at [address] [phone] Rachell Jordan MD LAB RESULTS 12/29/2024 Results Follow-Up Obstetrics & Gynecology at [address] [phone] Emelia Terrell RN 12/28/2024 7:30 PM HANDWRITING EXPERT E-Visit Obstetrics & Gynecology at [address] [phone] Nikole Winkler, SARA, TEACHER DRAMATICS Dx: Positive test (Primary Dx) 12/26/2024 Results Follow-Up Obstetrics & Gynecology at [address] [phone] Wnada Sinha, NERY 12/24/2024 11:40 AM HANDWRITING EXPERT Lab Visit Laboratory at [address] [phone] Positive test 12/22/2024 11:20 AM HANDWRITING EXPERT Lab Visit Laboratory at [address] [phone] Positive test 12/20/2024 2:40 PM HANDWRITING EXPERT E-Visit Obstetrics & Gynecology at [address] [phone] Nikole Winkler APRN, TEACHER DRAMATICS Chief Comp: Test Results 12/20/2024 9:55 AM HANDWRITING EXPERT Lab Visit Laboratory at [address] [phone] Positive test 12/20/2024 9:20 AM HANDWRITING EXPERT Initial Obstetrics & Gynecology at [address] [phone] Nikole Winkler, VENDING MACHINE COLLECTOR, TEACHER DRAMATICS , NOS ( confirmation /No concerns) 12/20/2024 Telephone Obstetrics & Gynecology at [address] [phone] Rachell Jordan MD ,1st Ob 12/20/2024 Nurse Triage Obstetrics & Gynecology at [address] [phone] Nikole Winkler, SARA, TEACHER DRAMATICS FOLLOW-UP, TEST RESULTS 12/20/2024 Results Follow-Up Obstetrics & Gynecology at [address] [phone] Lorena Gamez RN 12/18/2024 10:20 AM HANDWRITING EXPERT E-Visit Obstetrics & Gynecology at [address] [phone] Rachell Jordan MD Chief Comp: QUESTIONS, GENERAL 11/27/2024 11:40 AM HANDWRITING EXPERT Office Visit [facility] [address] [phone] Tamera Gross APRN, TEACHER DRAMATICS Acute non-recurrent frontal sinusitis (Primary Dx) from Last 3 Months Immunizations Immunization Administration Dates Next Due 4vHPV (Gardasil) 04/09/2010,01/01/2010, 9 DTP-Hib (Tetramune) 03/03/1998, 4,02/13/1993,1992,1992 Flu Vac (3+ yrs) 07/18/2011,11/21/2010 Fluzone Qiv Multidose Vial 0 .25 (6-35 Mos) 09/01/2020 H1n1 Miv Novartis 4+ Yr (Injected) 09/25/2009 HepA Adult (19+ yrs) 02/11/2013,03/25/2012 HepB Ped/Adol (0-18 yrs) 02/13/1993,1992,1 Influenza ([place] Only) (Flul aval Quad 0.5, 3+ yrs) 08/04/2017 Influenza (Flucelvax), Prese rv Free QIV 09/03/2019 Influenza IIV4 (Quadrivalent ) 0.5mL (13007) 08/15/2022,09/01/2020,09/08/2018 MCV4 (Menactra) 01/23/2011,06/18/2007 MMR 11/21/1993 Moderna Monovalent 12+ 11/08/2021,01/17/2021, OPV, Trivalent (Orimune or tOPV) 998,02/11/1994,1992,1991 PPSV23 (Pneumovax) 06/14/2014 Positive Rubella Titer 01/19/2025 TB Skin Test (PPD) 06/21/2007 Tdap 01/28/2023,08/15/2011 Family History Medical History Relation Name Comments Alcohol Abuse Father Other Father cardiac ablatio n Thyroid Disorder Mother Cancer, Other Maternal Grandfather Coronary Artery Disease Maternal Grandfather ID age 54, ID 62 Diabetes, Type II Maternal Grandmother Other Other 1 maternal aunts , ablation Other Other 2 paternal aunt - MS Cancer, Breast Negative Family History Cancer, Colon Negative Family History Relation Name Status Comments Father Alive Mother Alive Maternal Grandfather Maternal Grandmother Other 1 Other 2 Paternal Grandfather Paternal Grandmother Social History Tobacco Use Types [...] file Not on file Not on file Last Filed Vital Signs Vital Sign Reading Time Taken Comments Blood Pressure 135/96 02/08/2025 11:51 AM CDT Pulse 77 02/08/2025 11:51 AM CDT Temperature 36.8 C (98.3 F) 02/03/2025 2:56 PM CDT Respiratory Rate 18 02/03/2025 3:09 PM CDT Oxygen Saturation 98% 02/03/2025 3:09 PM CDT Inhaled Oxygen Concentration - - Weight 128.5 kg (283 lb 4.7 oz) 025 12:22 PM CDT Height 177.8 cm (5' 10) 02/03/2025 12: 22 PM CDT Body Mass Index 40.65 02/03/2025 12:22 PM CDT Plan of Treatment Upcoming Encounters Date Type Department Care Team (Late st Contact Info) Description 02/12/2025 12:00 PM CDT Appointment Laboratory at [address] [phone] 02/13/2025 1:40 PM CDT Appointment [facility] OB-DIESEL MECHANIC HELPER Ultrasound [place] [address] [place] [address] Tia Mosqueda MD [address] [place] [address] 02/23/2025 12:40 PM CDT Appointment Obstetrics & Gynecology at [address] [phone] Rachell Jordan MD [address] [place] [phone] Health Maintenance Due Date Last Done Comments Pneumococcal (2 of 2 - PCV) 06/14/2015 06/14/2014 Adult Preventive Visit 06/14/2016 4, 02/11/2013, 01/23/2011, Additional history exists COVID-19 Vaccine ( season) 2024 11/08/2021, 01/17/2021, 12/19/2020 Influenza (#1) 2024 08/15/2022, 08/04, 09/01/2020, Additional history exists Asthma ACT (score of 20 or higher) 06/16/2025 06/16/2024, 07/08/2023, 02/11/2013 (Completed), Additional history exists Cervical Cancer Screening 01/27/20292023, 01/28/2024, 11/05/2020 DTaP/Tdap/Td (8 - Tdap) 01/28/2033 01/29/20 23, 08/15/2011, 03/03/1998, Additional history exists Zoster/Shingles (1 of 2) 2042 HepB Completed 02/13/1993, 09/02, 1992 Hib Completed 03/03/1998, 01/31, 02/13/1993, Additional history exists IPV (Polio) Completed 03/22/1998, 01/31, 1992, Additional history exists HPV Vaccine Completed 04/09/2010, 12/2009, 09/25/2009 MCV4 Completed 01/23/2011, 06/18/2007 HepA Addressed 03/17/2014 (Hist orical Completion), 02/11/2013, 03/25/2012 Overridden with the intention of not completing the topic HIV Screening (Preventive Services) Completed 01/19/2025, 03/04/2024, 08/15/2022 Hep C Screening (Preventive Services) Completed 01/19/2025, 03/04/2024, 08/15/2022 Meningococcal B Aged Out No longer el igible based on patient's age to complete this topic Procedures Procedure Name Priority Date/Time Associated Diagnosis Comments OBGYN PELVIC/DIESEL MECHANIC HELPER ULTRASOUND Routine 02/08/2025 9:17 AM CDT Missed Abnormal uterine bleeding SURGICAL PATHOLOGY Routine 02/03/2025 2: 23 PM CDT Missed SUCTION CURETTAGE UTERUS 02/03/2025 2:10 PM CDT Missed OBGYN FIRST TRIMESTER ULTRASOUND Routine 02/02/2025 8:16 AM CDT Missed ab RAPID DRUG PANEL, URINE (WITH CONFIRMATION) Routine 01/25/2025 10:43 AM CDT Positive urine drug screen URINE CULTURE Routine 01/19/2025 2:23 PM CDT Supervision of high risk in first trimester OPIATE CONFIRMATION, URINE Routine 01/19/2025 2:23 PM CDT Supervision of high risk in first trimester TP/CREA RATIO, URINE Routine 01/19/2025 2:23 PM CDT History of gestational hypertension RAPID DRUG PANEL, URINE (WITH CONFIRMATION) Routine 01/19/2025 2:23 PM CDT Supervision of high risk in first trimester SYPHILIS PANEL (WITH REFLEX) Routine 01/19/2025 2:11 PM CDT Routine screening for STI (sexually transmitted infection) RUBELLA IMMUNE STATUS, IGG Routine 01/19/2025 2:11 PM CDT Supervision of high risk in first trimester HIV 1/2 AG/AB 4TH GEN Routine 01/19/2025 2:11 PM CDT Supervision of high risk in first trimester HEPATITIS C ANTIBODY, WITH REFLEX Routine 01/19/2025 2:11 PM CDT Supervision of high risk in first trimester HEPATITIS B CORE,AB Routine 01/19/2025 2 :11 PM CDT Supervision of high risk in first trimester HEPATITIS B SURFACE ANTIBODY Routine 01/19/2025 2:11 PM CDT Supervision of high risk in first trimester HBSAG (HEPATITIS B SURFACE AG) Routine 01/19/2025 2:11 PM CDT Supervision of high risk in first trimester SYPHILIS PANEL (WITH REFLEX) Routine 01/19/2025 2:11 PM CDT Routine screening for STI (sexually transmitted infection) AST Routine 01/19/2025 2:11 PM CDT History of gestational hypertension ALT (SGPT) Routine 01/19/2025 2:11 PM CDT History of gestational hypertension CREATININE / GFR Same Day 01/19/2025 2:11 PM CDT History of gestational hypertension HGB A1C Routine 01/19/2025 2:11 PM CDT Supervision of high risk in first trimester COMPLETE BLOOD COUNT-NO DIFF Routine 01/19/2025 2:11 PM CDT Supervision of high risk in first trimester ANTIBODY SCREEN Routine 01/19/2025 2:11 PM CDT Supervision of high risk in first trimester CHLAMYDIA & GC (14 YEARS & OLDER) Routine 01/19/2025 1:44 PM CDT Supervision of high risk in first trimester OBGYN FIRST TRIMESTER ULTRASOUND Routine 01/16/2025 7:51 AM CDT Establish gestational age, ultrasound HCG, QUANTITATIVE, SERUM Same Day 01/07/2025 11:35 AM HANDWRITING EXPERT Positive test HCG, QUANTITATIVE, SERUM Same Day 01/05/2025 11:17 AM HANDWRITING EXPERT Positive test OBGYN FIRST TRIMESTER ULTRASOUND Routine 01/03/2025 8:01 AM HANDWRITING EXPERT Positive test Anxiety and depression (HRC) Establish gestational age, ultrasound History of miscarriage, currently Vaginal bleeding in , first trimester Maternal obesity, antepartum, first trimester HCG, QUANTITATIVE, SERUM Same Day 12/31/2024 12:48 PM HANDWRITING EXPERT Bleeding in early SAB (spontaneous ) HCG, QUANTITATIVE, SERUM Same Day 12/29/2024 12:13 PM HANDWRITING EXPERT Spotting in early HCG, QUANTITATIVE, SERUM STAT 12/24/2024 12:02 PM HANDWRITING EXPERT Positive test HCG, QUANTITATIVE, SERUM Same Day 12/22/2024 11:22 AM HANDWRITING EXPERT Positive test HCG, QUANTITATIVE, SERUM Same Day 12/20/2024 10:00 AM HANDWRITING EXPERT Positive test TEST (URINE) Waiting 12/20/2024 9:46 AM HANDWRITING EXPERT Positive test CYTOLOGY (PAP) Routine 01/28/2024 10:13 AM CDT Screening for malignant neoplasm of cervix from Last 3 Months or Most Recently Relevant to Health Maintenance Results * (ABNORMAL) OBGYN Pelvic/Washery Engineer Ultrasound (02/08/2025 9:17 AM CDT) Uterus AP Diameter (Height) 7.00 cm EXTERNAL RESULTS Uterus Longitudinal Diameter (Length) 10.60 cm EXTERNAL RESULTS Uterus Transverse Diameter (Width) 8.50 cm EXTERNAL RESULTS Uterus Volume 330.23 ml ELEMENTARY SCHOOL LIBRARIAN AL RESULTS Endometrium Thickness 5.5 mm EXTERNAL [...] from the original result was not included. DIESEL MECHANIC HELPER Ultrasound Exam performed on: 02/08/2025 Referring provider: Cayla Muñoz MD Referring clinic: RF DESIGN ENGINEER Clinical indications: Missed Abnormal uterine bleeding LMP: D & C 02/03/25, now having heavy bleeding with clots Senior Corporate Accountant(s) initials: DP The pelvic organs are imaged [...] 9:29 AM 02/08/2025 us Cayla Muñoz MD RAD US Final Resul t * Surgical Path (02/03/2025 2:23 PM CDT) Case Report Surgical Pathology Case: [id number] Authorizing Provider: Toby Baca MD Collected: 02/03/2025 1423 Ordering Location: [facility] Day Received: 02/03/2025 [facility] Pathologist: Marla Martínez MD Specimen: Products of Conception 02/08/2025 9:31 AM [facility] FINAL DIAGNOSIS A. Uterine contents: Decidua, chorionic villi, and somatic tissue consistent with intrauterine products of conception 02/08/2025 9:31 AM [facility] at 0931 CDT Clinical Information Missed 02/08/2025 9:31 AM [facility] Microscopic Description Microscopic examination is performed. 02/08/2025 9:31 AM [facility] Gross Description A: The specimen is received in formalin and labeled with the patient's name and Products of Conception. The specimen consists of a 6.4 x 4.2 x 1.5 cm aggregate of hemorrhagic, nagel fibromembranous tissue. No components, chorionic villi, or hydropic villi are identified. A separate portion is submitted for chromosome analysis. Auditing Coder sections are submitted in 6 cassettes. 02/08/2025 9:31 AM CDT [facility] Embedded Images 02/08/2025 9:31 AM CDT [facility] Tissue RETAINED PRODUCTS OF CONCEPTION / Unknown 02/03/2025 2:23 PM CDT 02/03/2025 3:02 PM CDT us Toby Baca MD LAB PATHOLOGY Final Result [address] [address], [facility] * (ABNORMAL) OBGYN First Trimester Ultrasound (02/02/2025 8:16 AM CDT) Only the most recent of3 resultswithin the time period is included. Left Ovary Perpendicular Diameter (Height) 2.10 cm [...] included. Vangie Brunner Obstetrics Report Date: 02/02/2025 citrus fruit packer Ultrasound At [address] [address] Dept Patient Information Name: Vangie Brunner : 1990 (34 y.o.) (F) BMI: 40.66 kg/m Date: 02/02/2025 8:17 AM Performed By Senior Corporate Accountant(s) initials: DP Attending: Gurwinder Avalos MD Referred by: Rachell Jordan MD Referring location: [facility] Procedure OBGYN FIRST TRIMESTER ULTRASOUND Indications Missed ab Gestational [...] FW: No EFW calculated for this study Senior Corporate Accountant Comments Results notified to AV OB triage team. Impression Demise at 9w3d size with absence of cardiac activity, patient was thought to be 9w5d based on prior 7 week ultrasound. Recommendations The patient is informed of the ultrasound findings by the physician and will follow up with her obstetrical provider. Gurwinder Avalos MD us Rachell Jordan MD [facility] US Final Result * Rapid Drug Panel, Urine (with Confirmation) without THC (01/25/2025 10:43 AM CDT) Only the most recent of2 resultswithin the time period is included. [facility] Amphetamines Screen Not Detected Not Detected 01/26/2025 7:24 AM CDT [facility] Barbiturates Screen Not Detected Not Detected 01/26/2025 7:24 AM [facility] Benzodiazepines Screen Not Detected Not Detected 01/26/2025 7:24 AM [facility] Buprenorphine Screen Not Detected Not Detected 01/26/2025 7:24 AM [facility] Cocaine Metabolite Screen Not Detected Not Detected 01/26/2025 7:24 AM [facility] Methadone Screen Not Detected Not Detected 01/26/2025 7:24 AM [facility] Opiates Screen Not Detected Not Detected 01/26/2025 7:24 AM [facility] Oxycodone Screen Not Detected Not Detected 01/26/2025 7:24 AM [facility] Phencyclidine (PCP) Screen Not Detected Not Detected 01/26/2025 7:24 AM [facility] Creatinine, Urine, Random 40 >20 mg/dL 01/26/2025 7:24 AM [facility] Urine Non-blood Collection / Unknown 01/25/2025 10:43 AM CDT 01/25/2025 10:43 AM [facility] - 01/26/2025 7:24 AM [facility] The absence of expected drug(s) and/or drug metabolite(s) may indicate non-compliance, inappropriate timing of specimen collection relative to drug administration, poor drug absorption, diluted/adulterated urine or limitations of testing. The concentration must be greater than or equal to the cutoff concentration to be reported as positive. For medical purposes only: not valid for forensic, legal, or employment use. us Rachell Jordan MD LAB_1 Final Result Performing Organization Address [facility]/State/ZIP Co de Phone Number [id number] [place] [address] * (ABNORMAL) Urine Culture (01/19/2025 2:23 PM [facility]) Urine Culture Growth(A) 01/20/2025 5:01 PM [facility] Urine Culture 10,000 - 50,000 CFU/mL Mixed Bacterial Growth 01/20/2025 5:01 PM [facility] Comment:Mixed Bacterial Grow th indicates the specimen is likely contaminated at collection with urogenital and/or fecal neisha. Urine URINE SPECIMEN COLLECTION, CLEAN CATCH / Unknown Non-blood Collection / Unknown 01/19/2025 2:23 PM CDT 01/19/2025 2:23 PM CDT us Rachell Jordan MD LAB_1 Final Result Performing Organization Address [facility] [facility] [place] [address], [facility] * (ABNORMAL) Opiate Confirmation, Urine (01/19/2025 2:23 PM CDT) Heroin Metab 6-acetylmorph ine, urine Not Detected Not Detected 01/23/2025 9:45 AM CDT [facility] Codeine, urine Confirmed Positive(A) Not Detected 01/23/2025 9:45 AM CDT [facility] Hydrocodone, urine Not Detected Not Detected 01/23/2025 9:45 AM CDT [facility] Hydromorphone , urine Not Detected Not Detected 01/23/2025 9:45 AM CDT [facility] Morphine, urine Confirmed Positive(A) Not Detected 01/23/2025 9:45 AM CDT [facility] Oxycodone, urine Not Detected Not Detected 01/23/2025 9:45 AM CDT [facility] Oxymorphone, urine Not Detected Not Detected 01/23/2025 9:45 AM T [facility] Urine Non-blood Collection / Unknown 01/19/2025 2:23 PM CDT 01/19/2025 2:23 PM CDT [facility] - 01/23/2025 9:45 AM CDT The absence of expected drug(s) and/or drug metabolite(s) may indicate non-compliance, inappropriate timing of specimen collection relative to drug administration, poor drug absorption, diluted/adulterated urine or limitations of testing. The concentration must be greater than or equal to the cutoff concentration to be reported as positive. For medical purposes only: not valid for forensic, legal, or employment use. Analysis by LC-MS/MS Liquid Chromatography/Mass Spectrometry. This test was developed and its performance characteristics validated by [facility]. It has not been cleared nor approved by the FDA. us Rachell Jordan MD LAB_1 Final Result Performing Organization Address [facility] Co de Phone Number [place] [id number] [place] [address] * TP/Crea Ratio, Urine (01/19/2025 2:23 PM CDT) Pathologist [facility] TP/Creat Ratio, Urine Random 0.04 0.00 - 0.20 01/19/2025 7:48 PM CDT [facility] Total Protein, Urine, Random 14 0 - 14 mg/dL 01/19/2025 7:48 PM CDT [facility] Creatinine, Urine, Random 321 >20 mg/dL mg/dL 01/19/2025 7:48 PM CDT [facility] Urine Non-blood Collection / Unknown 01/19/2025 2:23 PM CDT 01/19/2025 2:23 PM CDT Narrative [facility] - 01/19/2025 7:48 PM CDT Low urine creatinine values coupled with low urine protein values can artifactually increase the urine protein/creatinine results. Correlate results of ratio with creatinine results. us Rachell Jordan MD LAB_1 Final Result Performing Organization Address City/[facility]/ZIP Co de Phone Number [facility] [address] * Rubella Immune Status, IgG (01/19/2025 2:11 PM CDT) Pathologist [facility] Rubella Units 5.41 01/20/2025 10:33 AM CDT [facility] Comment:The magnitude of the measured result, above the cutoff, is not indicative of the amount of antibody present. Rubella Intepretation Immune Immune 01/20/2025 10:33 AM CDT [facility] Blood Venipuncture / Unknown 01/19/2025 2:11 PM CDT 01/19/2025 2:11 PM CDT us Rachell Jordan MD LAB_1 Final Result [facility] [address] [place] [address], [facility] * Antibody Screen (01/19/2025 2:11 PM CDT) Antibody Screen Interpretation Negative 01/19/2025 9:18 PM CDT [facility] Blood Venipuncture / Unknown 01/19/2025 2:11 PM CDT 01/19/2025 2:11 PM CDT us Rachell Jordan MD LAB_1 Final Result [facility] [address] * Syphilis Panel, with Reflex (01/19/2025 2:11 PM CDT) Treponema Screen Interpretation Non Reactive Non Reactive 01/19/2025 11:19 PM CDT [facility] Syphilis Panel Comment Negative - No serological evidence of syphilis. 01/19/2025 11:19 PM CDT [facility] Blood Venipuncture / Unknown 01/19/2025 2:11 PM CDT 01/19/2025 2:11 PM CDT us Rachell Jordan MD LAB_1 Final Result Performing Organization Address City/[facility] Co de Phone Number [facility] [address] [place], [place] [address] * Hepatitis B Surface Antibody (01/19/2025 2:11 PM CDT) Hep B Surf Antibody Result <2.0 mIU/mL 01/19/2025 7:35 PM CDT [facility] Hep B Surf Antibody Interpretation Negative (Non Reactive) Positive (Reactive) 01/19/2025 7:35 PM CDT [facility] Comment:Individual is consid ered not immune to HBV infection. Blood Venipuncture / Unknown 01/19/2025 2:11 PM CDT 01/19/2025 2:11 PM CDT us Rachell Jordan MD LAB_1 Final Result [facility] [address] * HIV 1/2 Ag/Ab 4th Generation (01/19/2025 2:11 PM CDT) [facility] HIV 1/2 Antigen/Anti body (4th generation) Negative (Non Reactive) Negative (Non Reactive) 01/19/2025 7:36 PM CDT [facility] Comment:HIV-1 p24 Antigen an d HIV-1/HIV-2 Antibody not detected Blood Venipuncture / Unknown 01/19/2025 2:11 PM CDT 01/19/2025 2:11 PM CDT us Rachell Jordan MD LAB_1 Final Result Performing Organization Address [facility] Co de Phone Number [facility] [address] [place] [address] * Creatinine / GFR (01/19/2025 2:11 PM CDT) [facility] Creatinine 0.67 0.55 - 1.02 mg/dL 01/19/2025 7:11 PM CDT [facility] GFR, Estimated >60 >60 mL/min/1. 73m2 01/19/2025 7:11 PM CDT [facility] Blood Venipuncture / Unknown 01/19/2025 2:11 PM CDT 01/19/2025 2:11 PM CDT us Rachell Jordan MD LAB_1 Final Result Performing Organization Address [facility]/ZIP Co de Phone Number [facility] [address] * (ABNORMAL) Complete Blood Count-No Diff (01/19/2025 2:11 PM CDT) [facility] WBC 8.2 3.5 - 10.5 x10(9)/L 01/19/2025 2:21 PM CDT [facility] RBC 5.64(H) 3.90 - 5.03 x10(12)/L 01/19/2025 2:21 PM CDT [facility] Hemoglobin 15.0 12.0 - 15.5 g/dL 01/19/2025 2:21 PM CDT [facility] HCT 43.0 34.9 - 44.5 % 01/19/2025 2:21 PM CDT [facility] MCV 76.2(L) 80.0 - 100.0 fL 01/19/2025 2:21 PM CDT [facility] MCH 26.6(L) 27.6 - 33.3 pg 01/19/2025 2:21 PM CDT [facility] MCHC 34.9 31.5 - 35.2 g/dL 01/19/2025 2:21 PM CDT [facility] RDW 14.9 11.9 - 15.5 % 01/19/2025 2:21 PM CDT [facility] Platelets 281 150 - 450 x10(9)/L 01/19/2025 2:21 PM CDT [facility] Blood Venipuncture / Unknown 01/19/2025 2:11 PM CDT 01/19/2025 2:11 PM CDT us Rachell Jordan MD LAB_1 Final Result Performing Organization Address [facility]/ZIP Co de Phone Number [facility] [address] [place] [address] * Hepatitis C Antibody, with Reflex (01/19/2025 2:11 PM CDT) Hepatitis C Antibody Negative (Non Reactive) Negative (Non Reactive) 01/19/2025 7:40 PM CDT [facility] Comment:Antibodies to HCV no t detected. Does not exclude the possiblity of exposure to HCV. Blood Venipuncture / Unknown 01/19/2025 2:11 PM CDT 01/19/2025 2:11 PM CDT us Rachell Jordan MD LAB_1 Final Result Performing Organization Address City/[facility]/ZIP Co de Phone Number [facility] [id number] [place] [address] * Hepatitis B Surface Antigen (01/19/2025 2:11 PM CDT) Pathologist [facility] Hepatitis B Surface Antigen Negative (Non Reactive) Negative (Non Reactive) 01/19/2025 7:35 PM CDT [facility] Blood Venipuncture / Unknown 01/19/2025 2:11 PM CDT 01/19/2025 2:11 PM CDT Rachell Jordan MD LAB_1 Final Result Performing Organization Address [facility] Co de Phone Number [facility] [address] [place] [address] * Hepatitis B Core Antibody (01/19/2025 2:11 PM CDT) Pathologist [facility] Hepatitis B Core Antibody Negative (Non Reactive) Negative (Non Reactive) 01/19/2025 7:35 PM CDT [facility] Blood Venipuncture / Unknown 01/19/2025 2:11 PM CDT 01/19/2025 2:11 PM CDT Rachell Jordan MD LAB_1 Final Result Performing Organization Address [facility] de Phone Number [facility] [address] [place] [address] * Hgb A1C (01/19/2025 2:11 PM CDT) Pathologist [facility] Hemoglobin A1C 4.9 <=5.6 % 01/19/2025 7:45 PM CDT [facility] Estimated Average Glucose (Calc) 94 < 117 mg/dL 01/19/2025 7:45 PM CDT [facility] Comment:Estimated average gl ucose (eAG) converts A1c into glucose units (mg/dL) and estimates average glucose over the past approximately 3 months. The eAG reference interval (<117 mg/dL) corresponds to an A1c of <5.7%. Blood Venipuncture / Unknown 01/19/2025 2:11 PM CDT 01/19/2025 2:11 PM CDT us Rachell Jordan MD LAB_1 Final Result Performing Organization Address [facility] Co de Phone Number [facility] [address] * ALT (SGPT) (01/19/2025 2:11 PM CDT) ALT (SGPT) 18 0 - 55 U/L 01/19/2025 7:11 PM CDT [facility] Blood Venipuncture / Unknown 01/19/2025 2:11 PM CDT 01/19/2025 2:11 PM CDT us Rachell Jordan MD LAB_1 Final Result Performing Organization Address [facility] de Phone Number [facility] [address] [place] [address] * AST (01/19/2025 2:11 PM CDT) AST (SGOT) 26 10 - 40 U/L 01/19/2025 7:11 PM CDT [facility] Blood Venipuncture / Unknown 01/19/2025 2:11 PM CDT 01/19/2025 2:11 PM CDT us Rachell Jordan MD LAB_1 Final Result Performing Organization Address [facility] de Phone Number [facility] [address] * Chlamydia & GC (14 Years and Older): Vagina (01/19/2025 1:44 PM CDT) Chlamydia Trachomatis STD Not Detected Not Detected 01/19/2025 10:54 PM CDT [facility] N. gonorrhoeae STD Not Detected Not Detected 01/19/2025 10:54 PM CDT [facility] Swab STD SPECIMEN FROM VAGINA / Unknown Non-blood Collection / Unknown 01/19/2025 1:44 PM CDT 01/19/2025 3:54 PM CDT Narrative [facility] - 01/19/2025 10:54 PM CDT Test performed by [employer] Mediated Amplification (TMA). us Rachell Jordan MD LAB_1 Final Result Performing Organization Address [facility] Co de Phone Number [facility] [address] [address] * (ABNORMAL) HCG, Quantitative, Serum (01/07/2025 11:35 AM HANDWRITING EXPERT) Only the most recent of7 resultswithin the time period is included. HCG, Quantitative 37,474(H) <=4 mIU/mL 01/07/2025 7:16 PM HANDWRITING EXPERT [facility] Blood Venipuncture / Unknown 01/07/2025 11:35 AM HANDWRITING EXPERT 01/07/2025 11:41 AM HANDWRITING EXPERT Narrative [facility] - 01/07/2025 7:16 PM HANDWRITING EXPERT Expected ranges Negative: <5 mIU/mL Indeterminate: 5-25 mIU/mL Positive: >25 mIU/mL Suggest repeat testing of indeterminate result in 72 hours. us Rachell Jordan MD LAB_1 Final Result Performing Organization Address [facility] Co de Phone Number [address] [address], [facility] * Test (Urine) (12/20/2024 9:46 AM HANDWRITING EXPERT) HCG, Urine Negative Negative 12/20/2024 9:58 AM HANDWRITING EXPERT [facility] Urine Non-blood Collection / Unknown 12/20/2024 9:46 AM HANDWRITING EXPERT 12/20/2024 9:53 AM HANDWRITING EXPERT us Nikole Winkler APRN, [employer] LAB_1 Final R esult Performing Organization Address [facility]/ZIP Co de Phone Number [facility] [address] [place] [address], [facility] * PAP Test (01/28/2024 10:13 AM CDT) Case Report Pap Case: [id number] Authorizing Provider: Rachell Jordan MD Collected: 01/28/2024 1013 Ordering Location: [facility] Received: 01/28/2024 1020 and Gynecology First Screen: Yudelka Zimmer CT (ASCP) Specimen: Pap Test, Routine, Cervix/Endocervix 03/15/2024 10:06 AM [facility] Pap Specimen Adequacy Satisfactory for evaluation, endocervical/burnett sformation zone component absent. 03/15/2024 10:06 AM [facility] Pap Interpretation (NILM) Negative for intraepithelial lesion or malignancy. 03/15/2024 10:06 AM [facility] at 1006 CDT Pap Disclaimer The Pap test is a screening test to aid in the detection of cervical and vaginal cancers and their precursor lesions. It is not a diagnostic procedure and should not be used as the sole means of detecting malignancy. Both false-positive and false-negative results may occur. 03/15/2024 10:06 AM [facility] Gross Description The specimen is received in SurePath fixative and properly labeled. 1 Pap-stained SurePath slide is prepared. 03/15/2024 10:06 AM [facility] Embedded Images 10:06 AM [facility] Other Specimen Type ENTIRE ENDOCERVIX / Unknown 01/28/2024 10:13 AM CDT 01/28/2024 10:20 AM CDT Comment:LMP: Patient's last menstrual period was 11/28/2023 (exact date). us Rachell Jordan MD LAB PATHOLOGY Final Result [address] [address], [facility] from Last 3 Months or Most Recently Relevant to Health Maintenance Insurance FULLY INSURED Advance Directives * Full Code (Latest Code Status on File) Date Activated Date Inactivated Comments 03/18/2023 9:19 PM 03/22/2023 3:32 PM * Full Code Date Activated Date Inactivated Comments 07/05/2014 11:20 PM 07/06/2014 8:20 PM Care Teams General Dentist/Owner Relationship Specialty Start Date End Date Danni Aguillon MD [address] [place] [address] PCP - General Neurology 01/09/19
--- OUTSIDE RECORDS SUMMARY | 2025-02-11 20:08 | XMS_ITS | Encounter Summary ---
Author Organization [facility] Address [address], [place] [address] Care Team Providers Care Mason Foreman/Superintendant Name Role Phone Danni Aguillon MD Primary Care Provider [phone] Encounter Details Date Type Department Care Team (Late st Contact Info) Description 02/02/2025 E-Visit [facility] OB Ultrasound [address] [place] [address] Colin, [place] [address] Social History Tobacco Use Types Packs/Day Years [...] Industry Job Start Date Job End Date [employer] Not on file Not on file Not on file documented as of this encounter Plan of Treatment Upcoming Encounters Date Type Department Care Team (Late st Contact Info) Description 02/12/2025 12:00 PM CDT Appointment Laboratory at [facility] [address] [place] [phone] 02/13/2025 1:40 PM CDT Appointment [facility] OB-STUDY MANAGER Ultrasound [place] [address] [place] [address] Tia Mosqueda MD [address] [place] [address] 02/23/2025 12:40 PM CDT Appointment Obstetrics & Gynecology at [address] [address] Rachell Jordan MD [address] [place] [address] documented as of this encounter Visit Diagnoses Not on filedocumented in this encounter Care Teams Mason Foreman/Superintendant Relationship Specialty Start Date End Date Danni Aguillon MD [address] [place] [address] PCP - General Neurology 01/09/19 documented as of this encounter
--- OUTSIDE RECORDS SUMMARY | 2025-02-11 20:08 | XMS_ITS | Encounter Summary ---
Author Organization [facility] Address [address] [place] [address] Care Team Providers Care Miller Helper Distillery Name Role Phone No Ref-Primary, Physician Primary Care Provider Danni Aguillon MD Unavailable + [phone] Encounter Details Date Type Department Care Team (Late st Contact Info) Description 01/01/2018 Records - [facility] CONVERSION Scan, Non-Provider Social History Tobacco Use Types Packs/Day Years [...] 03/06/2025 8:00 AM CDT Infusion Therapy Visit [facility] [address] RUSS [address] [place] [phone] Danni Aguillon MD [address] [place] [phone] 05/15/2025 3:00 PM CDT Office Visit [facility] [address] [address] Danni Aguillon MD [address] [place] [phone] documented as of this encounter Visit Diagnoses Not on filedocumented in this encounter Additional Health Concerns Infection Onset Date Last Indicated Resolved Time Rule Out COVID-19 10/12/2022 10/12/2022 10/13/2022 8:12 PM DIE TESTER documented as of this encounter Care Teams [employer] Relationship Specialty Start Date End Date No Ref-Primary, Physician PCP - General 10/12/22 Danni Aguillon MD [address] [place] [address] Assigned Neuroscience Provider 12/06/22 documented as of this encounter
--- OUTSIDE RECORDS SUMMARY | 2025-02-11 20:08 | XMS_ITS | Encounter Summary ---
Author Organization [facility] Address [address] [place] [address] Care Team Providers Care Kiln Car Unloader Name Role Phone Danni Aguillon MD Primary Care Provider [phone] Encounter Details Date Type Department Care Team (Late st Contact Info) Description 02/02/2025 Telephone Obstetrics & Gynecology at [address] [phone] Rachell Jordan MD [address] [place] [address] Social History Tobacco Use Types Packs/Day Years [...] Industry Job Start Date Job End Date [employer] Not on file Not on file Not on file documented as of this encounter Nursing Notes * Esperanza Li - 02/02/2025 4:04 PM CDT Surgery scheduled at [facility] Day [facility] on 02/03/25 for SUCTION CURETTAGE UTERUS. Pre-op and post-op scheduled. Brochure sent via Alerts. Esperanza Li 02/02/2025, 4:06 PM documented in this encounter Plan of Treatment Upcoming Encounters Date Type Department Care Team (Late st Contact Info) Description 02/12/2025 12:00 PM CDT Appointment Laboratory at [address] [phone] 02/13/2025 1:40 PM CDT Appointment [facility] OB-HAM PASSER Ultrasound [place] [address] [place] [address] Tia Mosqueda MD [address] [facility] [place] [place], [place] [address] 02/23/2025 12:40 PM CDT Appointment Obstetrics & Gynecology at [address] [phone] Rachell Jordan MD [address] [place] [phone] documented as of this encounter Visit Diagnoses Not on filedocumented in this encounter Care Teams Kiln Car Unloader Relationship Specialty Start Date End Date Danni Aguillon MD [address] [place] [address] PCP - General Neurology 01/09/19 documented as of this encounter
--- OUTSIDE RECORDS SUMMARY | 2025-02-11 20:08 | XMS_ITS | Encounter Summary ---
[facility] Address [address] [place] [id number] Care Team Providers Care Show Girl Name Role Phone Danni Aguillon MD Primary Care Provider [phone]- [phone] Reason for Referral * Procedure/Equipment (Routine) - Incomplete Specialty Diagnoses / Procedures Referred By Contac t Referred To Contact Diagnoses Routine screening for STI (sexually transmitted infection) Supervision of high risk in first trimester Procedures MFM US OB First Trimester Ultrasound Rachell Jordan MD [address] [place] [address] Phone: tel: fax: Referral ID Status Reason Start Date Expiration Date V isits Requested Visits Authorized [id number] Incomplete 01/19/2025 04/20/2026 1 1 * Consult/Transfer Care (Routine) - New Request Specialty Diagnoses / Procedures Referred By Contac t Referred To Contact Diagnoses Supervision of high risk in first trimester Rachell Jordan MD [address] [place] [address] Phone: tel: fax: Referral ID Status Reason Start Date Expiration Date V isits Requested Visits Authorized [id number] New Request 01/19/2025 04/20/2026 1 1 Scheduling Instructions Your clinician has recommended an appointment with [facility]. A police patrol lieutenant will contact you to assist you in setting up this appointment. If you have not been contacted within one week or have any questions, please call [phone]. We suggest you call your health insurance company about your coverage and benefits for this appointment. Question Answer Appointment Urgency? Non-Urgent Multiple Gestation? [facility] Maternal Medicine Consult, Ultrasound Only Type of Imaging: Level 2 US 19-22 wks, 1st trimester US Indications for Ultrasound BMI, MS Dependent on ultrasound findings, patient may be scheduled for MFM Consult and/or additional ultrasound testing. Yes Indications for MFM Consult MS Reason for Visit * Reason Comments Ob Exam, Initial No concerns. Doing w ell. Encounter Details Date Type Department Care Team (Latest Contact Info) Description 01/19/2025 1:20 PM CDT Initial Obstetrics & Gynecology at [address] [address] Rachell Jordan MD [address] [place] [phone] Ob Exam, Initial (No concerns. Doing well. ) Social History Tobacco Use Types Packs/Day Years [...] Industry Job Start Date Job End Date Citizen Of [place] [employer] Not on file Not on file Not on file documented as of this encounter Last Filed Vital Signs Vital Sign Reading Time Taken Comments Blood Pressure 111/80 01/19/2025 1:13 PM CDT Pulse 74 01/19/2025 1:13 PM CDT Temperature - - Respiratory Rate - - Oxygen Saturation - - Inhaled Oxygen Concentration - - Weight 128.5 kg (283 lb 6.4 oz) 01/19/2025 1:13 PM CDT Height 177.8 cm (5' 10) 01/19/2025 1:13 PM CDT Body Mass Index 40.66 01/19/2025 1:13 PM CDT documented in this encounter Patient Instructions * Patient Instructions* Rachell Jordan MD - 01/19/2025 1:20 PM CDT Images from the original note were not included. Go to lab today NIPS screen can be done around 10 weeks Thank you for choosing us for your care. You will receive 3 books throughout your starting with Your Guide to . We recommend you review the following information in this book: Testing Genetic Testing How Your Body Changes Making Good Choices Six Steps to a Healthy How Babies Grow and Change To learn about the screening available for specific inherited diseases including cystic fibrosis and spinal muscular atrophy, see our handout on Genetic Disease Carrier Screening: https://[employer] ([employer])/19381.pdf Drinking any amount of alcohol during is not safe. Watch this short video by [employer] [place]: Proof: Some Think Drinking During is OK. It???s Not. - Yoly video Marijuana use is never recommended while or . Learn why here: https://[employer] ([employer])/06929.pdf is a time of transition. If you feel overwhelmed, anxious or depressed, see the followingresources: Emotional Distress During and After : https://[employer])/93940.pdf Resources & Support for New & Expecting Parents: https://[employer] ([employer])/82351.pdf The 3 books provided throughout are also available digitally. Here are the links to each book: Your Guide to : https://user-iPawn.[employer].bz/SrzrwjCtgdzoxs-Yfgi-Iexhg-ir-e-Swokkqy- Preparing for Childbirth: https://user-iPawn.[employer].bz/ZessghBufkasri-Rtp-Vbyf-of-Motherhood Taking Care of You and Your Hoxie: https://user-iPawn.[employer].bz/XrrekiLrcpdgtv-G-Lvx-Beginning [place] for our free alexa called ???myHealthyPregnancy?? powered by [employer]. The alexa offers many quick articles and videos on , labor, , , and newborncare. Find instructions here: Or click on this link: myHealthyPregnancy tracker alexa [facility] [place], soon-to-be, new, and nursing parents have legal protections to help keep them safe and healthy in the workplace. Find more information here: Or click on this link: Workers And New Parents documented in this encounter Progress Notes * Rachell Jordan MD - 01/19/2025 1:20 PM CDT [facility] New OB Note DOS: 01/19/2025 Subjective Vangie Brunner is a 34 y.o., , Patient's last menstrual period was 11/18/2024 (exact date)., Estimated Date of Delivery: 09/02/25, who is at 7w5d weeks gestation. Vangie is here for a first ob visit. Patient concerns: nausea. Hasn't started Reglan yet because she has some questions. Endorses feeling anxious given discrepancy with US dating and LMP with recent miscarriage history. Sure on LMP dating and cycles have been 31 days. Since patient's last menstrual period, had an episode of bleeding. Nothing further since ultrasound3/4 Since patient's last menstrual period, they have taken the following medication(s): sertraline. Patient is experiencing the following symptoms of : nausea, vomiting, fatigue, and breast tenderness. Domestic violence concerns: denies any concern Factors pertinent to this are the following: MS, BMI 40 Healthy Beginnings questionnaire reviewed & discussed: yes - no concerns Questions: 01/19/2025 1:20 PM 03/04/2024 2:20 PM 08/15/2022 9:00 AM Questions & Infection History Have/had an eating disorder? No No No Exposed to skin lightening products? No No No Concerned about stress in your life? No No No Ever been forced to have sex when you didn't want to? No No No Has anyone ever slapped, kicked, strangled, or otherwise hurt you? No No No Have you had a rash or viral illness since last menstrual period? No No No Do you live with someone with TB or exposed to TB? No No No Other diseases exposed to? 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: History of abnormal Pap: No Past Medical History: Diagnosis Date Anxiety with depression ([facility]) Asthma flares with allergies and URI Gestational hypertension JARVIS (iron deficiency anemia) in middle school, took iron Multiple sclerosis ([facility]) 2013 Obesity, unspecified ([facility]) Palpitations 07/15/2019 Seasonal allergic rhinitis Past Surgical History: Procedure Laterality Date ACL RECONSTRUCTION Right 11/02/2011 SINUS SURGERY WISDOM TEETH EXTRACTION Family History Problem Relation Name Age of Onset Thyroid Disorder Mother Other Father cardiac ablation Alcohol Abuse Father Other Other maternal aunts , ablation Coronary Artery Disease Maternal Grandfather [place] age 54, [place] 62 Cancer, Other Maternal Grandfather Diabetes, Type II Maternal Grandmother Other Other paternal aunt - MS Cancer, Colon Negative Family History Cancer, Breast Negative Family History Social History Tobacco Use Smoking status: Never Passive exposure: Never Smokeless tobacco: Never Vaping Use Vaping status: Never Used Substance Use Topics Alcohol use: Not Currently Comment: occ social alc usage per pt Drug use: No Social History Occupational History Occupation: Citizen Of [place] [employer] Allergies: Allergies Allergen Reactions Amoxicillin Other, see comments metoclopramide (REGLAN) 10 MG tablet, Take 1 Tablet (10 mg) by mouth 4 times daily as needed for Nausea or Vomiting., Disp: 60 Tablet, Rfl: 4 ocrelizumab (OCREVUS) 300 MG/10ML injection, every 6 (six) months, Disp: , Rfl: sertraline (ZOLOFT) 25 MG tablet, Take 1 Tablet (25 mg) by mouth daily., Disp: 90 Tablet, Rfl: 3 No current facility-administered medications on file as of 01/19/2025. Review of Systems: Complete ROS is negative unless noted in HPI. Objective BP 111/80 (BP Location: Left Arm, BP Cuff Size: Regular) Pulse 74 Ht 5' 10 (1.778 m) Wt 283 lb 6.4 oz (128.5 kg) LMP 11/18/2024 (Exact Date) No BMI 40.66 kg/m?? Patient BMI is >= 35? Constitutional/General appearance: stated age, healthy, in no distress Psychiatric: normal affect Skin - General: no visible rashes Skin - Breasts: Inspection negative. No nipple discharge or bleeding. No masses or tenderness HEENT - Normocephalic, atraumatic. Thyroid palpates normal. No LAD. Respiratory: Clear to auscultation without rales or rhonchi Cardiovascular - Heart: RRR, no appreciable murmur Cardiovascular - Legs: No edema Gastrointestinal: Soft, NT, ND Genitourinary/Pelvic: Kamila present for exam. normal external female genitalia. On bimanual exam vagina normal without nodularity/masses, cervix palpates normal, size = dates, no palpable adnexal masses. Assessment Assessment: 34 y.o. @ 7w5d intrauterine as determined by early US not consistent with LMP. Encounter Diagnoses Name Primary? Routine screening for STI (sexually transmitted infection) Yes Supervision of high risk in first trimester Plan 1. labs ordered. Pap UTD. Blind GC/CT swab collected. Given discrepant dating and patient anxiety with recent miscarriage plan for another viability scan in 2 weeks. 2. Genetic screening: NIPS screen planned, reviewed timing in light of BMI. Carrier screen done 2021 and negative. First tri MFM US ordered. 3. Hx GHTN: Baseline HELLP labs, UPC ordered. Plan for ASA to start at 12 weeks. Has home BP cuff. 4. Pre-preg BMI 40: HgbA1c ordered. Reviewed recommended weight gain. Plan for first tri MFM US, L2, 3rd tri Nino, testing to start at 34 weeks. 5. Relapsing/remitting MS: Follows with Neurology. Last Ocrevus infusion July 2024. MFM consult ordered. Serial growth US in 3rd tri. 6. Hx MDD, anxiety: Will increase Zoloft to 50mg today. 7. History of asthma: Rare albuterol use. No hx asthma-related hospitalization. Avoid hemabate PP. 8. Immunizations: Declines COVID booster, Flu shot 9. Delivery planning: Plans delivery at [facility]. 10. Counseling: Discussed routine care, timing of visits, and the location of delivery. Discussed HIV, drug screen and STI testing as indicated. Discussed options for genetic screening. Vangie has chosen Non-invasive Informed Screen. Discussed PNV 11. N/V in : Continue Unisom/B6, Reglan. Precautions reviewed. Rachell Jordan MD documented in this encounter Nursing Notes * Kamila Skelton LPN - 01/19/2025 1:20 PM CDT Examination chaperoned by Kamila Skelton LPN. 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 [address] Tia Mosqueda MD [address] [place] [address] 02/23/2025 12:40 PM CDT Appointment Obstetrics & Gynecology at [facility] [address] [place] [phone] Rachell Jordan MD [address] [place] [address] Scheduled Orders Name Type Priority Associated Diagnoses Orde r Schedule MFM US OB First Trimester Ultrasound Imaging New Routine Routine screening for STI (sexually transmitted infection) Supervision of high risk in first trimester Expected: 01/19/2025 (Approximate), Expires: 01/19/2026 [facility] NIPT Lab Routine Supervision of high risk in first trimester Expected: 01/19/2025, Expires: 04/19/2025 Scheduled Referrals Name Type Priority Associated Diagnoses Orde r Schedule Maternal Medicine Services Referral Routine Supervision of high risk in first trimester Ordered: 01/19/2025 documented as of this encounter Procedures Procedure Name Priority Date/Time Associated Diagnosis Comments CHLAMYDIA & GC (14 YEARS & OLDER) Routine 01/19/2025 1:44 PM CDT Supervision of high risk in first trimester documented in this encounter Results * TP/Crea Ratio, Urine (01/19/2025 2:23 PM CDT) TP/Creat Ratio, Urine Random 0.04 0.00 - 0.20 01/19/2025 7:48 PM CDT [facility] Total Protein, Urine, Random 14 0 - 14 mg/dL 01/19/2025 7:48 PM CDT [facility] Creatinine, Urine, Random 321 >20 mg/dL mg/dL 01/19/2025 7:48 PM CDT [facility] Urine Non-blood Collection / Unknown 01/19/2025 2:23 PM CDT 01/19/2025 2:23 PM CDT Narrative [facility] - 01/19/2025 7:48 PM CDT Low urine creatinine values coupled with low urine protein values can artifactually increase the urine protein/creatinine results. Correlate results of ratio with creatinine results. us Rachell Jordan MD LAB_1 Final Result [facility] [address] [address], [facility] * (ABNORMAL) Urine Culture (01/19/2025 2:23 PM CDT) Urine Culture Growth(A) 01/20/2025 5:01 PM CDT [facility] Urine Culture 10,000 - 50,000 CFU/mL Mixed Bacterial Growth 01/20/2025 5:01 PM T [facility] Comment:Mixed Bacterial Grow th indicates the specimen is likely contaminated at collection with urogenital and/or fecal neisha. Urine URINE SPECIMEN COLLECTION, CLEAN CATCH / Unknown Non-blood Collection / Unknown 01/19/2025 2:23 PM CDT 01/19/2025 2:23 PM CDT us Rachell Jordan MD LAB_1 Final Result [address] [address], [facility] * (ABNORMAL) Rapid Drug Panel, Urine (with Confirmation) without THC (01/19/2025 2:23 PM CDT) [facility] Amphetamines Screen Not Detected Not Detected 01/20/2025 7:01 AM [facility] Barbiturates Screen Not Detected Not Detected 01/20/2025 7:01 AM [facility] Benzodiazepines Screen Not Detected Not Detected 01/20/2025 7:01 AM [facility] Buprenorphine Screen Not Detected Not Detected 01/20/2025 7:01 AM [facility] Cocaine Metabolite Screen Not Detected Not Detected 01/20/2025 7:01 AM [facility] Methadone Screen Not Detected Not Detected 01/20/2025 7:01 AM [facility] Opiates Screen Presumptive Positive(A) Not Detected 01/20/2025 7:01 AM [facility] Oxycodone Screen Not Detected Not Detected 01/20/2025 7:01 AM [facility] Phencyclidine (PCP) Screen Not Detected Not Detected 01/20/2025 7:01 AM [facility] Creatinine, Urine, Random 282 >20 mg/dL 01/20/2025 7:01 AM [facility] Urine Non-blood Collection / Unknown 01/19/2025 2:23 PM CDT 01/19/2025 2:23 PM CDT Narrative [facility] - 01/20/2025 7:01 AM CDT The absence of expected drug(s) and/or drug metabolite(s) may indicate non-compliance, inappropriate timing of specimen collection relative to drug administration, poor drug absorption, diluted/adulterated urine or limitations of testing. The concentration must be greater than or equal to the cutoff concentration to be reported as positive. For medical purposes only: not valid for forensic, legal, or employment use. Rachell Jordan MD LAB_1 [place] [address], [facility] * AST (01/19/2025 2:11 PM CDT) AST (SGOT) 26 10 - 40 U/L 01/19/2025 7:11 PM CDT [facility] Blood Venipuncture / Unknown 01/19/2025 2:11 PM CDT 01/19/2025 2:11 PM CDT Rachell Jordan MD LAB_1 Final Result Performing Organization Address [facility] Co de Phone Number [facility] [address] * ALT (SGPT) (01/19/2025 2:11 PM CDT) ALT (SGPT) 18 0 - 55 U/L 01/19/2025 7:11 PM CDT [facility] Blood Venipuncture / Unknown 01/19/2025 2:11 PM CDT 01/19/2025 2:11 PM CDT Rachell Jordan MD LAB_1 Final Result Performing Organization Address [facility] Co de Phone Number [facility] [address] * Creatinine / GFR (01/19/2025 2:11 PM CDT) Creatinine 0.67 0.55 - 1.02 mg/dL 01/19/2025 7:11 PM CDT [facility] GFR, Estimated >60 >60 mL/min/1. 73m2 01/19/2025 7:11 PM CDT [facility] Blood Venipuncture / Unknown 01/19/2025 2:11 PM CDT 01/19/2025 2:11 PM CDT us Rachell Jordan MD LAB_1 Final Result Performing Organization Address [facility] Co de Phone Number [facility] [address] * Rubella Immune Status, IgG (01/19/2025 2:11 PM CDT) Rubella Units 5.41 01/20/2025 10:33 AM CDT [facility] Comment:The magnitude of the measured result, above the cutoff, is not indicative of the amount of antibody present. Rubella Intepretation Immune Immune 01/20/2025 10:33 AM CDT [facility] Blood Venipuncture / Unknown 01/19/2025 2:11 PM CDT 01/19/2025 2:11 PM CDT us Rachell Jordan MD LAB_1 Final Result Performing Organization Address [facility] Co de Phone Number [facility] [address] * HIV 1/2 Ag/Ab 4th Generation (01/19/2025 2:11 PM CDT) HIV 1/2 Antigen/Anti body (4th generation) Negative (Non Reactive) Negative (Non Reactive) 01/19/2025 7:36 PM CDT [facility] Comment:HIV-1 p24 Antigen an d HIV-1/HIV-2 Antibody not detected Blood Venipuncture / Unknown 01/19/2025 2:11 PM CDT 01/19/2025 2:11 PM CDT us Rachell Jordan MD LAB_1 Final Result Performing Organization Address City/[facility] Co de Phone Number [facility] [address] [place] [address], [place] * Hgb A1C (01/19/2025 2:11 PM CDT) Hemoglobin A1C 4.9 <=5.6 % 01/19/2025 7:45 PM CDT [facility] Estimated Average Glucose (Calc) 94 < 117 mg/dL 01/19/2025 7:45 PM CDT [facility] Comment:Estimated average gl ucose (eAG) converts A1c into glucose units (mg/dL) and estimates average glucose over the past approximately 3 months. The eAG reference interval (<117 mg/dL) corresponds to an A1c of <5.7%. Blood Venipuncture / Unknown 01/19/2025 2:11 PM CDT 01/19/2025 2:11 PM CDT Rachell Jordan MD LAB_1 Final Result Performing Organization Address [facility]/ZIP Co de Phone Number [facility] [address] * Hepatitis C Antibody, with Reflex (01/19/2025 2:11 PM CDT) Hepatitis C Antibody Negative (Non Reactive) Negative (Non Reactive) 01/19/2025 7:40 PM CDT [facility] Comment:Antibodies to HCV no t detected. Does not exclude the possiblity of exposure to HCV. Blood Venipuncture / Unknown 01/19/2025 2:11 PM CDT 01/19/2025 2:11 PM CDT us Rachell Jordan MD LAB_1 Final Result Performing Organization Address [facility]/ZIP Co de Phone Number [facility] [address] * Hepatitis B Core Antibody (01/19/2025 2:11 PM CDT) Hepatitis B Core Antibody Negative (Non Reactive) Negative (Non Reactive) 01/19/2025 7:35 PM CDT [facility] Blood Venipuncture / Unknown 01/19/2025 2:11 PM CDT 01/19/2025 2:11 PM CDT Rachell Jordan MD LAB_1 Final Result Performing Organization Address [facility] de Phone Number [facility] [address] * Hepatitis B Surface Antibody (01/19/2025 2:11 PM CDT) Hep B Surf Antibody Result <2.0 mIU/mL 01/19/2025 7:35 PM CDT [facility] Hep B Surf Antibody Interpretation Negative (Non Reactive) Positive (Reactive) 01/19/2025 7:35 PM CDT [facility] Comment:Individual is consid ered not immune to HBV infection. Blood Venipuncture / Unknown 01/19/2025 2:11 PM CDT 01/19/2025 2:11 PM CDT us Rachell Jordan MD LAB_1 Final Result Performing Organization Address [facility] Phone Number [facility] [address] * Hepatitis B Surface Antigen (01/19/2025 2:11 PM CDT) Hepatitis B Surface Antigen Negative (Non Reactive) Negative (Non Reactive) 01/19/2025 7:35 PM CDT [facility] Blood Venipuncture / Unknown 01/19/2025 2:11 PM CDT 01/19/2025 2:11 PM CDT Rachell Jordan MD LAB_1 Final Result Performing Organization Address [facility] Co de Phone Number [facility] [address] * (ABNORMAL) Complete Blood Count-No Diff (01/19/2025 2:11 PM CDT) [facility] WBC 8.2 3.5 - 10.5 x10(9)/L 01/19/2025 2:21 PM CDT [facility] RBC 5.64(H) 3.90 - 5.03 x10(12)/L 01/19/2025 2:21 PM CDT [facility] Hemoglobin 15.0 12.0 - 15.5 g/dL 01/19/2025 2:21 PM CDT [facility] HCT 43.0 34.9 - 44.5 % 01/19/2025 2:21 PM CDT [facility] MCV 76.2(L) 80.0 - 100.0 fL 01/19/2025 2:21 PM CDT [facility] MCH 26.6(L) 27.6 - 33.3 pg 01/19/2025 2:21 PM CDT [facility] MCHC 34.9 31.5 - 35.2 g/dL 01/19/2025 2:21 PM CDT [facility] RDW 14.9 11.9 - 15.5 % 01/19/2025 2:21 PM CDT [facility] Platelets 281 150 - 450 x10(9)/L 01/19/2025 2:21 PM CDT [facility] Blood Venipuncture / Unknown 01/19/2025 2:11 PM CDT 01/19/2025 2:11 PM CDT us Rachell Jordan MD LAB_1 Final Result Performing Organization Address City/[facility]/ZIP Co de Phone Number [facility] [address] [place] [phone] * Antibody Screen (01/19/2025 2:11 PM CDT) [facility] Antibody Screen Interpretation Negative 01/19/2025 9:18 PM CDT [facility] Blood Venipuncture / Unknown 01/19/2025 2:11 PM CDT 01/19/2025 2:11 PM CDT us Rachell Jordan MD LAB_1 Final Result [facility] [address] * Chlamydia & GC (14 Years and Older): Vagina (01/19/2025 1:44 PM CDT) Chlamydia Trachomatis STD Not Detected Not Detected 01/19/2025 10:54 PM CDT [facility] N. gonorrhoeae STD Not Detected Not Detected 01/19/2025 10:54 PM CDT [facility] Swab STD SPECIMEN FROM VAGINA / Unknown Non-blood Collection / Unknown 01/19/2025 1:44 PM CDT 01/19/2025 3:54 PM CDT Narrative [facility] - 01/19/2025 10:54 PM CDT Test performed by Air Brake Adjuster Mediated Amplification (TMA). us Rachell Jordan MD LAB_1 Final Result [facility] [address] documented in this encounter Visit Diagnoses Diagnosis Supervision of high risk in first trimester- Primary Unspecified high-risk Routine screening for STI (sexually transmitted infection) Screening examination for venereal disease History of gestational hypertension Anxiety and depression ([facility]C) Dysthymic disorder Multiple sclerosis affecting in first trimester ([facility]C) documented in this encounter Care Teams Show Girl Relationship Specialty Start Date End Date Danni Aguillon MD [address] [place] [id number] PCP - General Neurology 01/09/19 documented as of this encounter
--- OUTSIDE RECORDS SUMMARY | 2025-02-11 20:08 | XMS_ITS | Encounter Summary ---
Author Organization [facility] Address [address], [place] [address] Care Team Providers Care Certified Diabetes Educator Name Role Phone Danni Aguillon MD Primary Care Provider [phone] Reason for Visit * Auth/Cert Specialty Diagnoses / Procedures Referred By Contac t Referred To Contact Diagnoses Missed Procedures SUCTION CURETTAGE UTERUS Referral ID Status Reason Start Date Expiration Date Visits Re quested Visits Authorized [id number] 1 1 Encounter Details Date Type Department Care Team (Latest Contact Info) Description 02/03/2025 12:16 PM CDT - 02/03/2025 3:43 PM CDT Hospital Encounter [facility] [address] [place] [address] Toby Ordoñez MD [address] [place] [address] Missed Discharge Disposition: Home Social History Tobacco Use Types Packs/Day Years [...] Industry Job Start Date Job End Date [employer] Not on file Not on file Not on file documented as of this encounter Last Filed Vital Signs Vital Sign Reading Time Taken Comments Blood Pressure 107/70 02/03/2025 3:09 PM CDT Pulse 64 02/03/2025 3:09 PM CDT Temperature 36.8 C (98.3 F) 02/03/2025 [...] is after hours call the Careline at [phone]. [place] DRY GOODS INSPECTOR, ANESTHESIA Today you received General/Minor Sedation: Rest [...] Ordoñez MD - 02/03/2025 2:49 PM CDT [facility] Gynecology Operative Note Patient: Vangie Brunner Date: [...] grasped with a single tooth tenaculum. A paracerv ical block was performed with a total of 20 cc of the lidocaine 1% injected at 4 and 8 o'clock in the cervicovaginal junction. The cervix was dilated easily to 10mm with hegar dilators. A 9mm rigid suction curette was placed easily. Suction was set to 60-80 mmHg, and was used to evacuate the uterusof the products of conception, grossly visualized through the tubing. The entire procedure was completed under ultrasound guidance. Minimal bleeding from external os. The tenaculum was then removed, and the tenaculum site was noted to be hemostatic. The sterile speculum was removed. Tissue sent forchromosomal analysis. The products of conception were inspected grossly, and noted to contain a gestational sac with chorionic villi and decidual tissue. The sponge, needle, and instrument counts were correct. The patienttolerated the procedure well and was transferred to recovery in stable condition. Dr. Ordoñez was present and scrubbed for the entirety of the procedure. Reinier Layton MD [facility] Obstetrics and Gynecology, PGY1 02/03/2025 Date of [...] Please see the note dated 02/03/2025.?? Toby rOdoñez MD documented in this encounter Plan of Treatment Upcoming Encounters Date Type Department Care Team (Late st Contact Info) Description 02/12/2025 12:00 PM CDT Appointment Laboratory at [address] [address] 02/13/2025 1:40 PM CDT Appointment [facility] OB-GEAR REPAIR SUPERVISOR Ultrasound [place] [address] [place] [address] Tia Mosqueda MD [address] [place], [place] [address] 02/23/2025 12:40 PM CDT Appointment Obstetrics & Gynecology at [address] [phone] Rachell Jordan MD [address] [place] [address] Pending Results Name Type Priority Associated Diagnoses [...] PM CDT) Case Report Surgical Pathology Case: [id number] Authorizing Provider: Toby Ordoñez MD Collected: 02/03/2025 1423 Ordering Location: [facility] Same Day Received: 02/03/2025 1502 [facility] Pathologist: Marla Martínez MD Specimen: Products of Conception 02/08/2025 9:31 AM [facility] FINAL DIAGNOSIS A. Uterine contents: Decidua, chorionic villi, and somatic tissue consistent with intrauterine products of conception 02/08/2025 9:31 AM [facility] at 0931 CDT Clinical Information Missed 02/08/2025 9:31 AM [facility] Microscopic Description Microscopic examination is performed. 02/08/2025 9:31 AM [facility] Gross Description A: The specimen is received in formalin and labeled with the patient's name and Products of Conception. The specimen consists of a 6.4 x 4.2 x 1.5 cm aggregate of hemorrhagic, nagel fibromembranous tissue. No components, chorionic villi, or hydropic villi are identified. A separate portion is submitted for chromosome analysis. Pyroglazer sections are submitted in 6 cassettes. 02/08/2025 9:31 AM [facility] Embedded Images 02/08/2025 9:31 AM [facility] Tissue RETAINED PRODUCTS OF CONCEPTION / Unknown 02/03/2025 2:23 PM CDT 02/03/2025 3:02 PM CDT Toby Ordoñez MD LAB PATHOLOGY Final Result Performing Organization Address City/State/[facility] [place] [address], [facility] documented in this encounter Visit Diagnoses Diagnosis Missed - Primary Missed documented in this encounter Admitting Diagnoses [...] Started 02/03/2025 12:47 PM CDT 125 mL/hr ondansetron (ZOFRAN) injection 4 mg 4 mg, Intravenous, ONCE, On Thu02/03/25 at 1345, For 1 dose, Pre-op Given 02/03/2025 1:20 PM CDT 4 mg documented in this encounter Care Teams Certified Diabetes Educator Relationship Specialty Start Date End Date Danni Aguillon MD [address] [place] [address] PCP - General Neurology 01/09/19 documented as of this encounter
--- OUTSIDE RECORDS SUMMARY | 2025-02-11 20:08 | XMS_ITS | Encounter Summary ---
Author Organization [facility] Address [address] [place] [address] Care Team Providers Care Milking Machine Mechanic Name Role Phone Danni Aguillon MD Primary Care Provider [phone] Reason for Visit * Reason Comments RESULTS, TEST Entered automaticall y based on patient selection in [employer]. Encounter Details Date Type Department Care Team (Late st Contact Info) Description 02/02/2025 2:20 PM CDT E-Visit Obstetrics & Gynecology at [address] [address] Rachell Jordan MD [address] [place] [address] Chief Comp: RESULTS, TEST Social History Tobacco Use Types Packs/Day Years [...] Industry Job Start Date Job End Date [employer] Not on file Not on file Not on file documented as of this encounter Nursing Notes * Rachell Trujillo - 02/07/2025 2:43 PM CDT Pt is requesting a call back at [phone] [facility]. * Emelia Terrell RN - 02/02/2025 2:06 PM CDT Routing to the provider to review and advise on. Emelia Terrell RN [facility] documented in this encounter Plan of Treatment Upcoming Encounters Date Type Department Care Team (Late st Contact Info) Description 02/12/2025 12:00 PM CDT Appointment Laboratory at [address] [phone] 02/13/2025 1:40 PM CDT Appointment [facility] OB-CORRECTIONAL SUBSTANCE ABUSE COUNSELOR Ultrasound [place] [address] [place] [address] Tia Mosqueda MD [address] [place] [address] 02/23/2025 12:40 PM CDT Appointment Obstetrics & Gynecology at [address] [phone] Rachell Jordan MD [address] [place] [address] documented as of this encounter Visit Diagnoses Not on filedocumented in this encounter Care Teams Milking Machine Mechanic Relationship Specialty Start Date End Date Danni Aguillon MD [address] [place] [address] PCP - General Neurology 01/09/19 documented as of this encounter
--- OUTSIDE RECORDS SUMMARY | 2025-02-11 20:08 | XMS_ITS | Encounter Summary ---
Author Organization [facility] Address [address], [place] [address] Care Team Providers Care Piping Engineer Name Role Phone Danni Aguillon MD Primary Care Provider [phone] Encounter Details Date Type Department Care Team (Late st Contact Info) Description 02/02/2025 E-Visit [facility] [address] [place] [address] Myctilat, [place] [address] Social History Tobacco Use Types Packs/Day Years [...] Industry Job Start Date Job End Date [employer] Not on file Not on file Not on file documented as of this encounter Plan of Treatment Upcoming Encounters Date Type Department Care Team (Late st Contact Info) Description 02/12/2025 12:00 PM CDT Appointment Laboratory at [facility] [address] [place] [phone] 02/13/2025 1:40 PM CDT Appointment [facility] OB-AMMONIA SOLUTION PREPARER Ultrasound [place] [address] [place] [address] Tia Mosqueda MD [address] [place] [address] 02/23/2025 12:40 PM CDT Appointment Obstetrics & Gynecology at [address] [phone] Rachell Jordan MD [address] [place] [address] documented as of this encounter Visit Diagnoses Not on filedocumented in this encounter Care Teams Piping Engineer Relationship Specialty Start Date End Date Danni Aguillon MD [address] [place] [address] PCP - General Neurology 01/09/19 documented as of this encounter
--- OUTSIDE RECORDS SUMMARY | 2025-02-11 20:08 | XMS_ITS | Encounter Summary ---
Author Organization [facility] Address [address] [place] [address] Care Team Providers Care Graduate Teacher Education Name Role Phone Danni Aguillon MD Primary Care Provider [phone] Reason for Referral * Procedure/Equipment (Routine) - Incomplete Specialty Diagnoses / Procedures Referred By Contac t Referred To Contact Diagnoses Missed Procedures Case Request OR - Gynecologic Surg: SUCTION CURETTAGE UTERUS Rachell Jordan MD [address] [place] [address] Phone: tel: fax: Referral ID Status Reason Start Date Expiration Date V isits Requested Visits Authorized [id number] Incomplete 02/02/2025 05/04/2026 1 1 Encounter Details Date Type Department Care Team (Latest Contact Info) Description 02/02/2025 Prep for Surgery Obstetrics & Gynecology at [address] [address] Rachell Jordan MD [address] [place] [address] Missed (Primary Dx) Social History Tobacco Use [...] 02/12/2025 12:00 PM CDT Appointment Laboratory at [facility] [address] [place] [address] 02/13/2025 1:40 PM CDT Appointment [facility] OB-DELIVERY ASSISTANT Ultrasound [place] [address] [place], [place] [address] Tia Mosqueda MD [address] [facility] [place] [place] [address] 02/23/2025 12:40 PM CDT Appointment Obstetrics & Gynecology at [facility] [address] [place] [phone] Rachell Jordan MD [address] [place] [phone] documented as of this encounter Visit Diagnoses Diagnosis Missed - Primary documented in this encounter Care Teams Graduate Teacher Education Relationship Specialty Start Date End Date Danni Aguillon MD [address] [place] [address] PCP - General Neurology 01/09/19 documented as of this encounter
--- OUTSIDE RECORDS SUMMARY | 2025-02-11 20:08 | XMS_ITS | Encounter Summary ---
Author Organization [facility] Address [address] [place] [address] Care Team Providers Care Fine Artist Name Role Phone Danni Aguillon MD Primary Care Provider [phone] Reason for Visit * Reason Comments QUESTIONS, GENERAL Entered automaticall y based on patient selection in [employer] Encounter Details Date Type Department Care Team (Late st Contact Info) Description 01/11/2025 10:45 PM CDT E-Visit Obstetrics & Gynecology at [address] [address] Rachell Jordan MD [address] [place] [address] Dx: Nausea and vomiting in (Primary Dx) Social History Tobacco Use Types [...] Industry Job Start Date Job End Date [employer] Not on file Not on file Not on file documented as of this encounter Patient Instructions * Attachments The following attachments cannot be sent through Care Everywhere. * Metoclopramide Oral Tablet (METOCLOPRAMIDE - ORAL) (Swedish) documented in this encounter Nursing Notes * Nikole Winkler APRN, CNP - 01/12/2025 8:17 AM CDT Order signed. Nikole Winkler APRN, CNP 01/12/2025, 8:17 AM * Wanda Sinha RN - 01/12/2025 8:11 AM CDT Will send to provider to review and sign orders. [place] COMMERCIAL CARPET INSTALLER * Nikole Winkler APRN, CNP - 01/12/2025 7:55 AM CDT Patient message reviewed. Patient with n/v in first trimester of . Vitamin B6 and Unisom is not helpful. She is requesting Zofran. The first of developing a major congenital malformation (cardiac anomalies and clefts) following first trimester use is still under study. Typically this provider tries to avoid use in the first trimester unless all other medications have been failed. Can offer Reglan 10 mg PO QID PRN as next medication to trial. This can be taken with Vitamin B6 and Unisomif other medications were helpful at all. Nikole Winkler APRN, CNP 01/12/2025, 7:57 AM * Wanda Sinha RN - 01/12/2025 7:41 AM CDT Will send to provider to review and advise. Last seen by Nikole Winkler APRN, CNP, 12/20 for confirmation. NOB is 01/[address] Jordan is currently out of office until 01/16. See patient message requesting stronger medications for morning sickness. NERY [place] COMMERCIAL CARPET INSTALLER documented in this encounter Plan of Treatment Upcoming Encounters Date Type Department Care Team (Late st Contact Info) Description 02/12/2025 12:00 PM CDT Appointment Laboratory at [address] [phone] 02/13/2025 1:40 PM CDT Appointment [facility] OB-ROLL ON WORKER Ultrasound [place] [address] [place] [address] Tia Mosqueda MD [address] [place], [place] [address] 02/23/2025 12:40 PM CDT Appointment Obstetrics & Gynecology at [address] [phone] Rachell Jordan MD [address] [place] [phone] documented as of this encounter Visit Diagnoses Diagnosis Nausea and vomiting in - Primary Unspecified vomiting of , unspecified as to episode of care documented in this encounter Care Teams Fine Artist Relationship Specialty Start Date End Date Danni Aguillon MD [address] [place] [address] PCP - General Neurology 01/09/19 documented as of this encounter
--- OUTSIDE RECORDS SUMMARY | 2025-02-11 20:08 | XMS_ITS | Encounter Summary ---
Author Organization [facility] Address [address] [place] [address] Care Team Providers Care Green Energy Marketing Analyst Name Role Phone Danni Aguillon MD Primary Care Provider [phone]- [phone] Reason for Visit * Reason Comments Follow-up Encounter Details Date Type Department Care Team (Late st Contact Info) Description 02/02/2025 Telephone Obstetrics & Gynecology at [address] [phone] Yoselin Everett, [address] [address] Follow-up Social History Tobacco Use Types Packs/Day [...] Industry Job Start Date Job End Date [employer] Not on file Not on file Not on file documented as of this encounter Plan of Treatment Upcoming Encounters Date Type Department Care Team (Late st Contact Info) Description 02/12/2025 12:00 PM CDT Appointment Laboratory at [facility] [address] [place] [address] 02/13/2025 1:40 PM CDT Appointment [facility] OB-ASSOCIATE ART DIRECTOR Ultrasound [place] [address] [place], [place] [phone] Tia Mosqueda MD [address] [facility] [place] [address] 02/23/2025 12:40 PM CDT Appointment Obstetrics & Gynecology at [facility] [address] [place] [address] Rachell Jordan MD [address] [place] [phone] documented as of this encounter Visit Diagnoses Not on filedocumented in this encounter Care Teams Green Energy Marketing Analyst Relationship Specialty Start Date End Date Danni Aguillon MD [address] [place] [address] PCP - General Neurology 01/09/19 documented as of this encounter
--- OUTSIDE RECORDS SUMMARY | 2025-02-11 20:09 | XMS_ITS | Encounter Summary ---
Author Organization [facility] Address [address] [address] Care Team Providers Care Public Aid Eligibility Assistant Name Role Phone Danni Aguillon MD Primary Care Provider [phone] Encounter Details Date Type Department Care Team (Late st Contact Info) Description 03/19/2015 Correspondence External to Lisa Kuhn MD IMMMUNI RECORD Social History Tobacco Use Types Packs/Day Years Used Date Smoking Tobacco: Never Smokeless Tobacco: Never Alcohol Use Standard Drinks/Week Comments No 0 (1 standard drink = 0.6 oz pur e alcohol) Comments No Sex and Gender Information Value Date Recorded Sex Assigned at Not on file Legal Sex Female 5:17 AM CDT Gender Identity Not on file Sexual Orientation Not on file 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 [place], [place] [phone] Tia Mosqueda MD [address] [place] [address] 02/23/2025 12:40 PM CDT Appointment Obstetrics & Gynecology at [facility] [address] [place] [phone] Racehll Jordan MD [address] [place] [address] documented as of this encounter Visit Diagnoses Not on filedocumented in this encounter Care Teams Public Aid Eligibility Assistant Relationship Specialty Start Date End Date Danni Aguillon MD [address] [place] [address] PCP - General Neurology 01/09/19 documented as of this encounter
--- OUTSIDE RECORDS SUMMARY | 2025-02-11 20:09 | XMS_ITS | Encounter Summary ---
Author Organization [facility] Address [address] [place] [address] Care Team Providers Care Infection Control Rn Name Role Phone Danni Aguillon MD Primary Care Provider [phone] Encounter Details Date Type Department Care Team (Latest Contact Info) Description 01/19/2025 2:05 PM CDT Lab Visit Laboratory at [address] [phone] Supervision of high risk in first trimester; Routine screening for STI (sexually transmitted infection); History of gestational hypertension Social History Tobacco Use Types Packs/Day Years [...] Industry Job Start Date Job End Date [employer] Not on file Not on file Not on file documented as of this encounter Plan of Treatment Upcoming Encounters Date Type Department Care Team (Late st Contact Info) Description 02/12/2025 12:00 PM CDT Appointment Laboratory at [facility] [id number] [place] [phone] 02/13/2025 1:40 PM CDT Appointment [facility] OB-CHILD PSYCHOMETRIST Ultrasound [place] [address] [place] [address] Tia Mosqueda MD [address] [place] [address] 02/23/2025 12:40 PM CDT Appointment Obstetrics & Gynecology at [address] [phone] Rachell Jordan MD [address] [place] [phone] documented as of this encounter Procedures Procedure Name Priority Date/Time Associated Diagnosis Comments URINE CULTURE Routine 01/19/2025 2:23 PM CDT Supervision of high risk in first trimester OPIATE CONFIRMATION, URINE Routine 01/19/2025 2:23 PM CDT Supervision of high risk in first trimester RAPID DRUG PANEL, URINE (WITH CONFIRMATION) Routine 01/19/2025 2:23 PM CDT Supervision of high risk in first trimester TP/CREA RATIO, URINE Routine 01/19/2025 2:23 PM CDT History of gestational hypertension RUBELLA IMMUNE STATUS, IGG Routine 01/19/2025 2:11 PM CDT Supervision of high risk in first trimester ANTIBODY SCREEN Routine 01/19/2025 2:11 PM CDT Supervision of high risk in first trimester SYPHILIS PANEL (WITH REFLEX) Routine 01/19/2025 2:11 PM CDT Routine screening for STI (sexually transmitted infection) SYPHILIS PANEL (WITH REFLEX) Routine 01/19/2025 2:11 PM CDT Routine screening for STI (sexually transmitted infection) HEPATITIS B SURFACE ANTIBODY Routine 01/19/2025 2:11 PM CDT Supervision of high risk in first trimester HIV 1/2 AG/AB 4TH GEN Routine 01/19/2025 2:11 PM CDT Supervision of high risk in first trimester CREATININE / GFR Same Day 01/19/2025 2:11 PM CDT History of gestational hypertension COMPLETE BLOOD COUNT-NO DIFF Routine 01/19/2025 2:11 [...] Supervision of high risk in first trimester HGB A1C Routine 01/19/2025 2:11 PM CDT Supervision of high risk in first trimester ALT (SGPT) Routine 01/19/2025 2:11 PM CDT History of gestational hypertension AST Routine 01/19/2025 2:11 PM CDT History of gestational hypertension documented in this encounter Results * (ABNORMAL) Opiate Confirmation, Urine (01/19/2025 2:23 PM CDT) Heroin Metab 6-acetylmorph ine, urine Not Detected Not Detected 01/23/2025 9:45 AM [facility] Codeine, urine Confirmed Positive(A) Not Detected 01/23/2025 9:45 AM [facility] Hydrocodone, urine Not Detected Not Detected 01/23/2025 9:45 AM [facility] Hydromorphone , urine Not Detected Not Detected 01/23/2025 9:45 AM [facility] Morphine, urine Confirmed Positive(A) Not Detected 01/23/2025 9:45 AM [facility] Oxycodone, urine Not Detected Not Detected 01/23/2025 9:45 AM CDT [facility] Oxymorphone, urine Not Detected Not Detected 01/23/2025 9:45 AM CDT [facility] Urine Non-blood Collection / Unknown 01/19/2025 2:23 PM CDT 01/19/2025 2:23 PM CDT [facility] - 01/23/2025 9:45 AM CDT The absence [...] developed and its performance characteristics validated by [facility]. It has not been cleared nor approved by the FDA. Rachell Jordan MD LAB_1 Final Result [address] [address], [facility] * TP/Crea Ratio, Urine (01/19/2025 2:23 PM CDT) TP/Creat Ratio, Urine Random 0.04 0.00 - 0.20 01/19/2025 7:48 PM CDT [facility] Total Protein, Urine, Random 14 0 - 14 mg/dL 01/19/2025 7:48 PM CDT [facility] Creatinine, Urine, Random 321 >20 mg/dL mg/dL 01/19/2025 7:48 PM CDT [facility] Urine Non-blood Collection / Unknown 01/19/2025 2:23 PM CDT 01/19/2025 2:[address] [facility] - 01/19/2025 7:48 PM CDT Low urine creatinine values coupled with low urine protein values can artifactually increase the urine protein/creatinine results. Correlate results of ratio with creatinine results. us Rachell Jordan MD LAB_1 Final Result [facility] [address] * (ABNORMAL) Urine Culture (01/19/2025 2:23 PM CDT) [facility] Urine Culture Growth(A) 01/20/2025 5:01 PM CDT [facility] Urine Culture 10,000 - 50,000 CFU/mL Mixed Bacterial Growth 01/20/2025 5:01 PM CDT [facility] Comment:Mixed Bacterial Grow th indicates the specimen is likely contaminated at collection with urogenital and/or fecal neisha. Urine URINE SPECIMEN COLLECTION, CLEAN CATCH / Unknown Non-blood Collection / Unknown 01/19/2025 2:23 PM CDT 01/19/2025 2:23 PM CDT us Rachell Jordan MD LAB_1 Final Result Performing Organization Address City/[facility]/ZIP Co de Phone Number [address] * (ABNORMAL) Rapid Drug Panel, Urine (with Confirmation) without THC (01/19/2025 2:23 PM CDT) [facility] Amphetamines Screen Not Detected Not Detected [...] Random 282 >20 mg/dL 01/20/2025 7:01 AM [facility] Urine Non-blood Collection / Unknown 01/19/2025 2:23 PM CDT 01/19/2025 2:23 PM CDT [facility] - 01/20/2025 7:01 AM CDT The absence [...] use. Rachell Jordan MD LAB_1 Final Result Performing Organization Address [facility]/[place] [address], [facility] * Syphilis Panel, with Reflex (01/19/2025 2:11 PM CDT) Treponema Screen Interpretation Non Reactive Non Reactive 01/19/2025 11:19 PM CDT [facility] Syphilis Panel Comment Negative - No serological evidence of syphilis. 01/19/2025 11:19 PM CDT [facility] Blood Venipuncture / Unknown 01/19/2025 2:11 PM CDT 01/19/2025 2:11 PM CDT Rachell Jordan MD LAB_1 Final Result [facility] [address] [place] [address], [facility] * AST (01/19/2025 2:11 PM CDT) AST (SGOT) 26 10 - 40 U/L 01/19/2025 7:11 PM CDT [facility] Blood Venipuncture / Unknown 01/19/2025 2:11 PM CDT 01/19/2025 2:11 PM CDT Rachell Jordan MD LAB_1 Final Result Performing Organization Address [facility] Co de Phone Number [facility] [address] * ALT (SGPT) (01/19/2025 2:11 PM CDT) ALT (SGPT) 18 0 - 55 U/L 01/19/2025 7:11 PM CDT [facility] Blood Venipuncture / Unknown 01/19/2025 2:11 PM CDT 01/19/2025 2:11 PM CDT us Rachell Jordan MD LAB_1 Final Result Performing Organization Address [facility] de Phone Number [facility] [address] * Creatinine / GFR (01/19/2025 2:11 PM CDT) Creatinine 0.67 0.55 - 1.02 mg/dL 01/19/2025 7:11 PM CDT [facility] GFR, Estimated >60 >60 mL/min/1. 73m2 01/19/2025 7:11 PM CDT [facility] Blood Venipuncture / Unknown 01/19/2025 2:11 PM CDT 01/19/2025 2:11 PM CDT us Rachell Jordan MD LAB_1 Final Result Performing Organization Address [facility] Co de Phone Number [facility] [address] * Rubella Immune Status, IgG (01/19/2025 2:11 PM CDT) Rubella Units 5.41 01/20/2025 10:33 AM CDT [facility] Comment:The magnitude of the measured result, above the cutoff, is not indicative of the amount of antibody present. Rubella Intepretation Immune Immune 01/20/2025 10:33 AM CDT [facility] Blood Venipuncture / Unknown 01/19/2025 2:11 PM CDT 01/19/2025 2:11 PM CDT Result [facility] Rachell Jordan MD LAB_1 Final Result Performing Organization Address City/[facility]/ZIP Co de Phone Number [facility] [address] * HIV 1/2 Ag/Ab 4th Generation (01/19/2025 2:11 PM CDT) Pathologist [facility] HIV 1/2 Antigen/Anti body (4th generation) Negative (Non Reactive) Negative (Non Reactive) 01/19/2025 7:36 PM CDT [facility] Comment:HIV-1 p24 Antigen an d HIV-1/HIV-2 Antibody not detected Blood Venipuncture / Unknown 01/19/2025 2:11 PM CDT 01/19/2025 2:11 PM CDT Result [facility] Rachell Jordan MD LAB_1 Final Result Performing Organization Address [facility] de Phone Number [facility] [address] * Hgb A1C (01/19/2025 2:11 PM CDT) Pathologist [facility] Hemoglobin A1C 4.9 <=5.6 % 01/19/2025 7:45 PM CDT [facility] Estimated Average Glucose (Calc) 94 < 117 mg/dL 01/19/2025 7:45 PM CDT [facility] Comment:Estimated average gl ucose (eAG) converts A1c into glucose units (mg/dL) and estimates average glucose over the past approximately 3 months. The eAG reference interval (<117 mg/dL) corresponds to an A1c of <5.7%. Blood Venipuncture / Unknown 01/19/2025 2:11 PM CDT 01/19/2025 2:11 PM CDT Result [facility] Rachell Jordan MD LAB_1 Final Result Performing Organization Address [facility] Co de Phone Number [facility] [address] * Hepatitis C Antibody, with Reflex (01/19/2025 2:11 PM CDT) Hepatitis C Antibody Negative (Non Reactive) Negative (Non Reactive) 01/19/2025 7:40 PM CDT [facility] Comment:Antibodies to HCV no t detected. Does not exclude the possiblity of exposure to HCV. Blood Venipuncture / Unknown 01/19/2025 2:11 PM CDT 01/19/2025 2:11 PM CDT us Rachell Jordan MD LAB_1 Final Result Performing Organization Address [facility] Co de Phone Number [facility] [address] * Hepatitis B Core Antibody (01/19/2025 2:11 PM CDT) Hepatitis B Core Antibody Negative (Non Reactive) Negative (Non Reactive) 01/19/2025 7:35 PM CDT [facility] Blood Venipuncture / Unknown 01/19/2025 2:11 PM CDT 01/19/2025 2:11 PM CDT us Rachell Jordan MD LAB_1 Final Result Performing Organization Address City/[facility] Co de Phone Number [facility] [address] * Hepatitis B Surface Antibody (01/19/2025 2:11 PM CDT) Hep B Surf Antibody Result <2.0 mIU/mL 01/19/2025 7:35 PM CDT [facility] Hep B Surf Antibody Interpretation Negative (Non Reactive) Positive (Reactive) 01/19/2025 7:35 PM CDT [facility] Comment:Individual is consid ered not immune to HBV infection. Blood Venipuncture / Unknown 01/19/2025 2:11 PM CDT 01/19/2025 2:11 PM CDT Rachell Jordan MD LAB_1 Final Result Performing Organization Address [facility] Co de Phone Number [facility] [address] * Hepatitis B Surface Antigen (01/19/2025 2:11 PM CDT) [facility] Hepatitis B Surface Antigen Negative (Non Reactive) Negative (Non Reactive) 01/19/2025 7:35 PM CDT [facility] Blood Venipuncture / Unknown 01/19/2025 2:11 PM CDT 01/19/2025 2:11 PM CDT Rachell Jordan MD LAB_1 Final Result Performing Organization Address [facility] de Phone Number [facility] [address] * (ABNORMAL) Complete Blood Count-No Diff (01/19/2025 2:11 PM CDT) [facility] WBC 8.2 3.5 - 10.5 x10(9)/L 01/19/2025 2:21 PM CDT [place] [facility] RBC 5.64(H) 3.90 - 5.03 x10(12)/L 01/19/2025 2:21 PM CDT [place] [facility] Hemoglobin 15.0 12.0 - 15.5 g/dL 01/19/2025 2:21 PM CDT [place] [facility] HCT 43.0 34.9 - 44.5 % 01/19/2025 2:21 PM CDT [place] [facility] MCV 76.2(L) 80.0 - 100.0 fL 01/19/2025 2:21 PM CDT [place] [facility] MCH 26.6(L) 27.6 - 33.3 pg 01/19/2025 2:21 PM CDT [place] [facility] MCHC 34.9 31.5 - 35.2 g/dL 01/19/2025 2:21 PM CDT [facility] RDW 14.9 11.9 - 15.5 % 01/19/2025 2:21 PM CDT [facility] Platelets 281 150 - 450 x10(9)/L 01/19/2025 2:21 PM CDT [facility] Blood Venipuncture / Unknown 01/19/2025 2:11 PM CDT 01/19/2025 2:11 PM CDT us Rachell Jordan MD LAB_1 Final Result Performing Organization Address City/[facility]/ZIP Co de Phone Number [facility] [address] [place] [address], [facility] * Antibody Screen (01/19/2025 2:11 PM CDT) Antibody Screen Interpretation Negative 01/19/2025 9:[address] [facility] Blood Venipuncture / Unknown 01/19/2025 2:11 PM CDT 01/19/2025 2:11 PM CDT us Rachell Jordan MD LAB_1 Final Result Performing Organization Address City/[facility]/ZIP Co de Phone Number [facility] [address] documented in this encounter Visit Diagnoses Diagnosis Supervision of high risk in first trimester Unspecified high-risk Routine screening for STI (sexually transmitted infection) Screening examination for venereal disease History of gestational hypertension documented in this encounter Care Teams Infection Control Rn Relationship Specialty Start Date End Date Danni Aguillon MD [address] [place] [address] PCP - General Neurology 01/09/19 documented as of this encounter
--- OUTSIDE RECORDS SUMMARY | 2025-02-11 20:09 | XMS_ITS | Encounter Summary ---
Author Organization [facility] Address [address] [address] Care Team Providers Care Sports Announcer Name Role Phone Danni Aguillon MD Primary Care Provider [phone] Encounter Details Date Type Department Care Team (Late st Contact Info) Description 06/17/2016 Correspondence [facility] Radiology [address] [place] [address] Radiology, Provider MRI SAFETY SHEET AND COMPATIBILITY FORM Social History Tobacco Use Types Packs/Day Years [...] 02/12/2025 12:00 PM CDT Appointment Laboratory at [address] [phone] 02/13/2025 1:40 PM CDT Appointment [facility] OB-INSTRUMENT LENS GRINDER Ultrasound [place] [address] [place], [place] [phone] Tia Mosqueda MD [address] [place], [place] [phone] 02/23/2025 12:40 PM CDT Appointment Obstetrics & Gynecology at [address] [place] [phone] Rachell Jordan MD [address] [place] [address] documented as of this encounter Visit Diagnoses Not on filedocumented in this encounter Care Teams Sports Announcer Relationship Specialty Start Date End Date Danni Aguillon MD [address] [place] [address] PCP - General Neurology 01/09/19 documented as of this encounter
--- OUTSIDE RECORDS SUMMARY | 2025-02-11 20:09 | XMS_ITS | Encounter Summary ---
Author Organization [facility] Address [address] [place] [address] Care Team Providers Care Safety Deposit Supervisor Name Role Phone Danni Aguillon MD Primary Care Provider [phone] Reason for Visit * Reason Comments QUESTIONS, GENERAL Entered automaticall y based on patient selection in [employer]. Encounter Details Date Type Department Care Team (Late st Contact Info) Description 01/01/2025 8:20 PM ELECTRIC HOIST OPERATOR E-Visit Obstetrics & Gynecology at [address] [phone] Rachell Jordan MD [address] [place] [address] Chief Comp: QUESTIONS, GENERAL Social History Tobacco Use Types Packs/Day Years [...] Industry Job Start Date Job End Date [employer] Not on file Not on file Not on file documented as of this encounter Plan of Treatment Upcoming Encounters Date Type Department Care Team (Late st Contact Info) Description 02/12/2025 12:00 PM CDT Appointment Laboratory at [facility] [address] [place] [address] 02/13/2025 1:40 PM CDT Appointment [facility] OB-FIREWORKS ASSEMBLER Ultrasound [place] [address] [place] [address] Tia Mosqueda MD [address] [place], [place] [phone] 02/23/2025 12:40 PM CDT Appointment Obstetrics & Gynecology at [facility] [address] [place] [address] Rachell Jordan MD [address] [place] [phone] documented as of this encounter Visit Diagnoses Not on filedocumented in this encounter Care Teams Safety Deposit Supervisor Relationship Specialty Start Date End Date Danni Aguillon MD [address] [place] [address] PCP - General Neurology 01/09/19 documented as of this encounter
--- OUTSIDE RECORDS SUMMARY | 2025-02-11 20:09 | XMS_ITS | Encounter Summary ---
Author Organization [facility] Address [address] [place] [address] Care Team Providers Care Search And Rescue Officer Name Role Phone Danni Aguillon MD Primary Care Provider [phone] Reason for Referral * Consult/Transfer Care (Routine) - New Request Specialty Diagnoses / Procedures Referred By Contac t Referred To Contact Diagnoses Positive urine drug screen Rachell Jordan MD [address] [place] [address] Phone: tel: fax: Referral ID Status Reason Start Date Expiration Date V isits Requested Visits Authorized [id number] New Request 01/23/2025 04/24/2026 1 1 Scheduling Instructions Your clinician has recommended the [facility]. A specialist will meet with you at an upcoming appointment. If you have additional questions please contact our [facility] Coordinator at [phone]. Question Answer Appointment Urgency? Non-Urgent Reason for visit? Presumptive positive urine drug screen for opioids Is patient aware of Referral? No Patient needs referral for [id number] (buprenorphine medication such as subutex) No Encounter Details Date Type Department Care Team (Late st Contact Info) Description 01/20/2025 Results Follow-Up Obstetrics & Gynecology at [address] [phone] Wanda Sinha, RN Social History Tobacco Use Types Packs/Day [...] Industry Job Start Date Job End Date [employer] Not on file Not on file Not on file documented as of this encounter Plan of Treatment Upcoming Encounters Date Type Department Care Team (Late st Contact Info) Description 02/12/2025 12:00 PM CDT Appointment Laboratory at [address] [phone] 02/13/2025 1:40 PM CDT Appointment [facility] OB-INDUSTRIAL WASTE TREATMENT TECHNICIAN Ultrasound [place] [address] [place] [address] Tia Mosqueda MD [address] [place] [address] 02/23/2025 12:40 PM CDT Appointment Obstetrics & Gynecology at [address] [phone] Rachell Jordan MD [address] [place] [address] Scheduled Referrals Name Type Priority Associated Diagnoses Orde r Schedule [facility] Order Referral Routine Positive urine drug screen Ordered: 01/23/2025 documented as of this encounter Visit Diagnoses Diagnosis Positive urine drug screen- Primary Nonspecific abnormal toxicological findings documented in this encounter Care Teams Search And Rescue Officer Relationship Specialty Start Date End Date Danni Aguillon MD [address] [place] [address] PCP - General Neurology 01/09/19 documented as of this encounter
--- OUTSIDE RECORDS SUMMARY | 2025-02-11 20:09 | XMS_ITS | Encounter Summary ---
Author Organization [facility] Address [address] [place] [address] Care Team Providers Care Welding Operator Name Role Phone No Ref-Primary, Physician Primary Care Provider Danni Aguillon MD Unavailable [phone] Encounter Details Date Type Department Care Team (Late st Contact Info) Description 01/07/2018 Records - [facility] CONVERSION Scan, Non-Provider [...] 03/06/2025 8:00 AM CDT Infusion Therapy Visit [facility] [address] [place] [phone] Danni Aguillon MD [address] [place] [phone] 05/15/2025 3:00 PM CDT Office Visit [facility] [address] [address] Danni Aguillon MD [address] [place] [phone] documented as of this encounter Visit Diagnoses Not on filedocumented in this encounter Additional Health Concerns Infection Onset Date Last Indicated Resolved Time Rule Out COVID-19 10/12/2022 10/12/2022 10/13/2022 8:12 PM VIDEOTAPE OPERATOR documented as of this encounter Care Teams Welding Operator Relationship Specialty Start Date End Date No Ref-Primary, Physician PCP - General 10/12/22 Danni Aguillon MD [address] [place] [address] Assigned Neuroscience Provider 12/06/22 documented as of this encounter
--- OUTSIDE RECORDS SUMMARY | 2025-02-11 20:09 | XMS_ITS | Encounter Summary ---
Author Organization [facility] Address [address] [place] [address] Care Team Providers Care Prosthetics Technician Name Role Phone Danni Aguillon MD Primary Care Provider +- [phone] Reason for Visit * Procedure/Equipment (Routine) - Incomplete Specialty Diagnoses / Procedures Referred By Contac t Referred To Contact Diagnoses Positive test Anxiety and depression (HRC) Establish gestational age, ultrasound History of miscarriage, currently Vaginal bleeding in , first trimester Maternal obesity, antepartum, first trimester Procedures OBGYN First Trimester Ultrasound OBGYN First Trimester Ultrasound Nikole Winkler, SARA, SUPERINTENDENT METER TESTS [address] [place] [address] Phone: tel: fax: Referral ID Status Reason Start Date Expiration Date V isits Requested Visits Authorized [id number] Incomplete 12/20/2024 03/21/2026 1 1 Encounter Details Date Type Department Care Team (Latest Contact Info) Description 01/03/2025 7:40 AM MOTION PICTURE CAMERA OPERATOR Ancillary Procedure business development analyst Ultrasound at [address] [phone] Nikole Winkler, BAG MACHINE HELPER, SUPERINTENDENT METER TESTS [address] [place] [address] Positive test; Anxiety and depression (HRC); Establish gestational age, ultrasound; History of miscarriage, currently ; Vaginal bleeding in , first trimester; Maternal obesity, antepartum, first trimester Social History Tobacco Use Types Packs/Day Years [...] Industry Job Start Date Job 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 [address] Tia Mosqueda MD [address] [place] [address] 02/23/2025 12:40 PM CDT Appointment Obstetrics & Gynecology at [address] [phone] Rachell Jordan MD [address] [place] [phone] documented as of this encounter Procedures Procedure Name Priority Date/Time Associated Diagnosis Comments OBGYN FIRST TRIMESTER ULTRASOUND Routine 01/03/2025 8:01 AM MOTION PICTURE CAMERA OPERATOR Positive test Anxiety and depression (HRC) Establish gestational age, ultrasound History of miscarriage, currently Vaginal bleeding in , first trimester Maternal obesity, antepartum, first trimester documented in this encounter Results * (ABNORMAL) OBGYN First Trimester Ultrasound (01/03/2025 8:01 AM MOTION PICTURE CAMERA OPERATOR) Uterus AP Diameter (Height) 5.60 cm EXTERNAL RESULTS Uterus Longitudinal Diameter (Length) 10.00 cm EXTERNAL RESULTS Uterus Transverse Diameter (Width) 6.60 cm EXTERNAL RESULTS Uterus Volume 193.52 ml ARNP AL RESULTS Left Ovary Perpendicular Diameter (Height) 1.60 cm EXTERNAL RESULTS Left Ovary Longitudinal Diameter (Length) 2.70 cm EXTERNAL RESULTS Left Ovary Hilum-Cortex Diameter (Width) 2.30 cm EXTERNAL RESULTS Left Ovary Volume 5.20 ml EX TERNAL RESULTS Right Ovary Perpendicular Diameter (Height) 1.60 cm EXTERNAL RESULTS Right Ovary Longitudinal Diameter (Length) 2.50 cm EXTERNAL RESULTS Right Ovary Hilum-Cortex Diameter (Width) 2.80 cm EXTERNAL RESULTS Right Ovary Volume 5.86 ml E XTERNAL RESULTS Anatomical Region Laterality Modality Pelvis Ultrasound Study GA Study Date Study TARA Working TARA (Source) 01/03/2025 08/25/2025 (Last Menstrua l Period) Fetus 1 Measurements Value GA (days) GA by US Calc FHR Gest Sac 1.27 cm Yolk Sac 2 mm CRL NT BPD OFD HC AC FL HL CI FL/BPD FL/AC HC/AC UAR - PSV UAR - S/D Ratio UAR - RI UAR - PI MCA - PSV MCA - S/D Ratio MCA - PI Lateral Ventricle CER Cisterna Magna IRAIDA Foot Narrative 01/03/2025 8:28 AM MOTION PICTURE CAMERA OPERATOR Table formatting from the original result was not included. Early First Trimester Ultrasound Exam performed on: 01/03/2025 Referring provider: Nikole Winkler APRN, SUPERINTENDENT METER TESTS Referring clinic: [facility] ULTR[facility] Clinical indications: Positive test Anxiety and depression (HRC) Establish gestational age, ultrasound History of miscarriage, currently Vaginal bleeding in , first trimester Maternal obesity, antepartum, first trimester LMP: Patient's last menstrual period was 11/18/2024 (exact date)., 6w4d [employer] D[employer] Car(s) initials: KW Component Latest Ref Rng 12/31/2024 12/29/2024 12/24/2024 12/22/2024 12/20/2024 HCG, Quant. Preg. <=4 mIU/mL 6,599 (H) 3,246 (H) 444 (H) 130 (H) 45 (H) Legend: (H) High The pelvic organs are imaged using: both transvaginal and transabdominal transducers to better visualize the pelvic anatomy. Today's ultrasound was compared to previous report and images from: None Measurements and comments Uterus: Length Height Width 10.00 5.60 6.60 cm Position: anteverted Comments: symmetrical Endometrium: IUP present Right ovary: Length Height Width Volume 2.50 1.60 2.80 cm 5.86 ml Comments: appears normal Dynamic real time scan showed normal ovarian mobility and no tenderness. Left ovary: Length Height Width Volume 2.70 1.60 2.30 cm 5.20 ml Comments: appears normal Dynamic real time scan showed normal ovarian mobility and no tenderness. Adnexa: no masses seen Peritoneal fluid: absent Mean gestational sac: 1.27 cm, 6w 0d Yolk sac: 2 mm CRL: Not Visualized heart beat: Not Visualized Ultrasound order placed for Patient to schedule follow up in 11-14 days to establish gestational age/ confirm viability. Patient reports typical 31 day menstrual cycles prior to becoming . Unable to visualize a source for Patient's reported vaginal spotting. Impression: Intrauterine too early to determine viability. Ultrasound appearance is not consistent with menstrual dating. Gestational sac and yolk sac visualized today. pole not yet seen. Normal appearing ovaries and adnexa bilaterally. Plan: These findings were reviewed with the patient. She will follow up with her referring provider. Recommend follow-up ultrasound in 11-14 days to determine viability/ establish dates. Bleeding precautions reviewed. Layla Velez, us Nikole Winkler BAG MACHINE HELPER, SUPERINTENDENT METER TESTS RAD US Final R esult documented in this encounter Visit Diagnoses Diagnosis Positive test examination or test, positive result Anxiety and depression (HRC) Dysthymic disorder Establish gestational age, ultrasound Encounter for routine screening for malformation using ultrasonics History of miscarriage, currently Vaginal bleeding in , first trimester Maternal obesity, antepartum, first trimester documented in this encounter Care Teams Prosthetics Technician Relationship Specialty Start Date End Date Danni Aguillon MD [address] [place] [address] PCP - General Neurology 01/09/19 documented as of this encounter
--- OUTSIDE RECORDS SUMMARY | 2025-02-11 20:09 | XMS_ITS | Encounter Summary ---
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 [employer] Not on file Not on file Not on file documented as of this encounter Plan of Treatment Upcoming Encounters Date Type Department Care Team (Late st Contact Info) Description 02/12/2025 12:00 PM CDT Appointment Laboratory at [address] [phone] 02/13/2025 1:40 PM CDT Appointment [facility] OB-CARDBOARD CUTTER Ultrasound [place] [address] [place] [address] Tia Mosqueda MD [address] [place] [address] 02/23/2025 12:40 PM CDT Appointment Obstetrics & Gynecology at [address] [phone] Rachell Jordan MD [address] [place] [address] documented as of this encounter Visit Diagnoses Not on filedocumented in this encounter Care Teams School Janitor Relationship Specialty Start Date End Date Danni Aguillon MD [address] [place] [address] PCP - General Neurology 01/09/19 documented as of this encounter
--- OUTSIDE RECORDS SUMMARY | 2025-02-11 20:09 | XMS_ITS | Encounter Summary ---
Author Organization [facility] Address [address], [place] [address] Care Team Providers Care Centrifugal Chiller Technician Name Role Phone Danni Aguillon MD Primary Care Provider [phone]- [phone] Encounter Details Date Type Department Care Team (Late st Contact Info) Description 07/07/2014 Correspondence [facility] Radiology [address] [place] [address] Radiology, Provider MRI SAFETY SHEET AND COMPATIBILITY [...] 02/12/2025 12:00 PM CDT Appointment Laboratory at [address] [phone] 02/13/2025 1:40 PM CDT Appointment [facility] OB-COCOA BUTTER FILTER OPERATOR Ultrasound [place] [address] [place], [place] [address] Tia Mosqueda MD [address] [place], [place] [address] 02/23/2025 12:40 PM CDT Appointment Obstetrics & Gynecology at [address] [place] [phone] Rachell Jordan MD [address] [place] [address] documented as of this encounter Visit Diagnoses Not on filedocumented in this encounter Care Teams Centrifugal Chiller Technician Relationship Specialty Start Date End Date Danni Aguillon MD [address] [place] [address] PCP - General Neurology 01/09/19 documented as of this encounter
--- OUTSIDE RECORDS SUMMARY | 2025-02-11 20:09 | XMS_ITS | Encounter Summary ---
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 [place], [place] [address] Tia Mosqueda MD [address] [place], [place] [address] 02/23/2025 12:40 PM CDT Appointment Obstetrics & Gynecology at [facility] [address] [place] [address] Rachell Jordan MD [address] [place] [address] documented as of this encounter Results * Rapid Drug Panel, Urine (with Confirmation) without THC (01/25/2025 10:43 AM CDT) [facility] Amphetamines Screen Not Detected Not Detected 01/26/2025 7:24 AM T [facility] Barbiturates Screen Not Detected Not Detected 01/26/2025 7:24 AM [facility] Benzodiazepines Screen Not Detected Not Detected 01/26/2025 7:24 AM [facility] Buprenorphine Screen Not Detected Not Detected 01/26/2025 7:24 AM [facility] Cocaine Metabolite Screen Not Detected Not Detected 01/26/2025 7:24 AM [facility] Methadone Screen Not Detected Not Detected 01/26/2025 7:24 AM [facility] Opiates Screen Not Detected Not Detected 01/26/2025 7:24 AM [facility] Oxycodone Screen Not Detected Not Detected 01/26/2025 7:24 AM [facility] Phencyclidine (PCP) Screen Not Detected Not Detected 01/26/2025 7:24 AM [facility] Creatinine, Urine, Random 40 >20 mg/dL 01/26/2025 7:24 AM [facility] Urine Non-blood Collection / Unknown 01/25/2025 10:43 AM CDT 01/25/2025 10:43 AM CDT [facility] - 01/26/2025 7:24 AM CDT The absence of expected drug(s) [...] us Rachell Jordan MD LAB_1 [place] [address], [facility] documented in this encounter Visit Diagnoses Diagnosis Positive urine drug screen- Primary Nonspecific abnormal toxicological findings documented in this encounter Care Teams Operational Test Mechanic Relationship Specialty Start Date End Date Danni Aguillon MD [address] [place] [address] PCP - General Neurology 01/09/19 documented as of this encounter
--- OUTSIDE RECORDS SUMMARY | 2025-02-11 20:09 | XMS_ITS | Encounter Summary ---
Author Organization [facility] Address [address] [place] [address] Care Team Providers Care Restaurant Server Name Role Phone Danni Aguillon MD Primary Care Provider [phone]- [phone] Encounter Details Date Type Department Care Team (Late Contact Info) Description 08/20/2017 Correspondence Neurology at [facility] [address] [place] [address] Danni Aguillon MD [address] [place] [address] [phone] TYSABRI PATIENT STATUS REPORT AND REAUTH Social History Tobacco Use Types Packs/Day Years [...] 02/12/2025 12:00 PM CDT Appointment Laboratory at [facility] [address] [place] [phone] 02/13/2025 1:40 PM CDT Appointment [facility] OB-BILINGUAL CUSTOMER SERVICE SPECIALIST Ultrasound [place] [address] [place] [address] Tia Mosqueda MD [address] [place] [address] 02/23/2025 12:40 PM CDT Appointment Obstetrics & Gynecology at [address] [phone] Rachell Jordan MD [address] [place] [address] documented as of this encounter Visit Diagnoses Not on filedocumented in this encounter Care Teams Restaurant Server Relationship Specialty Start Date End Date Danni Aguillon MD [address] [place] [address] PCP - General Neurology 01/09/19 documented as of this encounter
--- OUTSIDE RECORDS SUMMARY | 2025-02-11 20:09 | XMS_ITS | Encounter Summary ---
Author Organization [facility] Address [address] [place] [address] Care Team Providers Care Payroll Administrator Name Role Phone Danni Aguillon MD Primary Care Provider [phone]- [phone] Encounter Details Date Type Department Care Team (Late st Contact Info) Description 01/02/2025 Results Follow-Up Obstetrics & Gynecology at [address] [phone] Wanda Sinha RN Social History [...] Industry Job Start Date Job End Date [employer] Not on file Not on file Not on file documented as of this encounter Plan of Treatment Upcoming Encounters Date Type Department Care Team (Late st Contact Info) Description 02/12/2025 12:00 PM CDT Appointment Laboratory at [address] [address] 02/13/2025 1:40 PM CDT Appointment [facility] OB-DIRECTOR SECURITY MANAGEMENT Ultrasound [place] [address] [place] [address] Tia Mosqueda MD [address] [place] [address] 02/23/2025 12:40 PM CDT Appointment Obstetrics & Gynecology at [address] [phone] Rachell Jordan MD [address] [place] [address] documented as of this encounter Visit Diagnoses Not on filedocumented in this encounter Care Teams Payroll Administrator Relationship Specialty Start Date End Date Danni Aguillon MD [address] [place] [address] PCP - General Neurology 01/09/19 documented as of this encounter
--- OUTSIDE RECORDS SUMMARY | 2025-02-11 20:09 | XMS_ITS | Encounter Summary ---
Author Organization [facility] Address [address], [place] [address] Care Team Providers Care Dewaterer Operator Name Role Phone Danni Aguillon MD Primary Care Provider [phone] Encounter Details Date Type Department Care Team (Late st Contact Info) Description 01/28/2017 Correspondence External to External, [place] [address] MEDS LIST Social History Tobacco Use Types Packs/Day Years [...] 02/12/2025 12:00 PM CDT Appointment Laboratory at [address] [phone] 02/13/2025 1:40 PM CDT Appointment [facility] OB-QUARTZ MINER BLASTING Ultrasound [place] [address] [place], [place] [phone] Tia Mosqueda MD [address] [place], [place] [address] 02/23/2025 12:40 PM CDT Appointment Obstetrics & Gynecology at [facility] [address] [place] [phone] Rachell Jordan MD [address] [place] [address] documented as of this encounter Visit Diagnoses Not on filedocumented in this encounter Care Teams Dewaterer Operator Relationship Specialty Start Date End Date Danni Aguillon MD [address] [place] [address] PCP - General Neurology 01/09/19 documented as of this encounter
--- OUTSIDE RECORDS SUMMARY | 2025-02-11 20:09 | XMS_ITS | Encounter Summary ---
Author Organization [facility] Address [address], [place] [address] Care Team Providers Care Healthcare Economics Manager Name Role Phone Danni Aguillon MD Primary Care Provider [phone] [phone] Encounter Details Date Type Department Care Team (Late st Contact Info) Description 07/04/2016 Correspondence External to External, [place] [address] PATIENT ENROLLMENT FORM Social History Tobacco Use Types Packs/Day [...] 12:00 PM CDT Appointment Laboratory at [address] [address] 02/13/2025 1:40 PM CDT Appointment [facility] OB-PIGMENT PRESSER Ultrasound [place] [address] [place], [place] [address] Tia Mosqueda MD [address] [place] [address] 02/23/2025 12:40 PM CDT Appointment Obstetrics & Gynecology at [facility] [address] [place] [phone] Rachell Jordan MD [address] [place] [address] documented as of this encounter Visit Diagnoses Not on filedocumented in this encounter Care Teams Healthcare Economics Manager Relationship Specialty Start Date End Date Danni Aguillon MD [address] [place] [address] PCP - General Neurology 01/09/19 documented as of this encounter
--- OUTSIDE RECORDS SUMMARY | 2025-02-11 20:09 | XMS_ITS | Encounter Summary ---
Author Organization [facility] Address [address] [address] Care Team Providers Care Door Core Assembler Name Role Phone Danni Aguillon MD Primary Care Provider [phone] [phone] Encounter Details Date Type Department Care Team (Late Contact Info) Description 08/26/2019 Correspondence External to External, [place] [address] NOTICE OF PATIENT AUTH Social History Tobacco Use Types Packs/Day Years Used Date Smoking Tobacco: Never Smokeless Tobacco: Never Alcohol Use Standard Drinks/Week Comments Not Currently 0 (1 standard drink = 0.6 oz pur e alcohol) occ social alc usage per pt Comments No Sex and Gender Information Value [...] 02/12/2025 12:00 PM CDT Appointment Laboratory at [address] [phone] 02/13/2025 1:40 PM CDT Appointment [facility] OB-FORM SETTER HELPER Ultrasound [place] [address] [place], [place] [address] Tia Mosqueda MD [address] [place], [place] [address] 02/23/2025 12:40 PM CDT Appointment Obstetrics & Gynecology at [facility] [phone] Rachell Jordan MD [address] [place] [address] documented as of this encounter Visit Diagnoses Not on filedocumented in this encounter Care Teams Door Core Assembler Relationship Specialty Start Date End Date Danni Aguillon MD [address] [place] [address] [phone] PCP - General Neurology 01/09/19 documented as of this encounter
--- OUTSIDE RECORDS SUMMARY | 2025-02-11 20:09 | XMS_ITS | Encounter Summary ---
Author Organization [facility] Address [address] [place] [address] Care Team Providers Care Manager Math Name Role Phone Danni Aguillon MD Primary Care Provider [phone]- [phone] Encounter Details Date Type Department Care Team (Late Contact Info) Description 08/11/2017 Correspondence Neurology at [facility] [address] [facility] [place] [address] Danni Aguillon MD [address] [place] [address] [phone] PLAN OF TREATMENT Social History Tobacco Use Types Packs/Day Years [...] on file Not on file Not on le documented as of this encounter Plan of Treatment Upcoming Encounters Date Type Department Care Team (Late st Contact Info) Description 02/12/2025 12:00 PM CDT Appointment Laboratory at [facility] [address] [place] [phone] 02/13/2025 1:40 PM CDT Appointment [facility] OB-LARRY OPERATOR Ultrasound [place] [address] [place] [address] Tia Mosqueda MD [address] [place] [address] 02/23/2025 12:40 PM CDT Appointment Obstetrics & Gynecology at [address] [phone] Rachell Jordan MD [address] [place] [address] documented as of this encounter Visit Diagnoses Not on filedocumented in this encounter Care Teams Manager Math Relationship Specialty Start Date End Date Danni Aguillon MD [address] [place] [address] PCP - General Neurology 01/09/19 documented as of this encounter
--- OUTSIDE RECORDS SUMMARY | 2025-02-11 20:09 | XMS_ITS | Encounter Summary ---
Author Organization [facility] Address [address] [place] [address] Care Team Providers Care Team Leader Name Role Phone Danni Aguillon MD Primary Care Provider +1 [phone] Reason for Visit * Reason Comments QUESTIONS, GENERAL Entered automaticall y based on patient selection in Attentive[employer]. Encounter Details Date Type Department Care Team (Late st Contact Info) Description 01/02/2025 7:50 PM EMERGENCY MANAGEMENT PROGRAM SPECIALIST E-Visit Obstetrics & Gynecology at [address] [address] Rachell Jordan MD [address] [place] [address] Chief Comp: QUESTIONS, GENERAL Social History [...] Industry Job Start Date Job End Date [employer] Not on file Not on file Not on file documented as of this encounter Nursing Notes * Wanda Sinha RN - 01/03/2025 8:30 AM CST US results today: Impression: Intrauterine too early to determine viability. Ultrasound appearance is not consistent with menstrual dating. Gestational sac and yolk sac visualized today. pole not yet seen. Normal appearing ovaries and adnexa bilaterally. Plan: These findings were reviewed with the patient. She will follow up with her referring provider. Recommend follow-up ultrasound in 11-14 days to determine viability/ establish dates. Bleeding precautions reviewed. Layla Velez DO Patient is scheduled for repeat US on 01/16. Patient is request HCG order in the meantime for peace of mind. Addended to include that patient is also requesting if possible to take progesterone for hx mAB x1 and currently experiencing spotting. Wanda Sinha RN [place] TRACK REPAIR LABORER GENCY MANAGEMENT PROGRAM SPECIALIST GENCY MANAGEMENT PROGRAM SPECIALIST documented in this encounter Plan of Treatment Upcoming Encounters Date Type Department Care Team (Late st Contact Info) Description 02/12/2025 12:00 PM CDT Appointment Laboratory at [facility] [address] [place] [phone] 02/13/2025 1:40 PM CDT Appointment [facility] OB-CAMP RECREATION SPECIALIST Ultrasound [place] [address] [place], [place] [phone] Tia Mosqueda MD [address] [facility] [place], [place] [address] 02/23/2025 12:40 PM CDT Appointment Obstetrics & Gynecology at [facility] [address] [place] [address] Rachell Jordan MD [address] [place] [address] [phone] documented as of this encounter Visit Diagnoses Not on filedocumented in this encounter Care Teams Team Leader Relationship Specialty Start Date End Date Danni Aguillon MD [address] [place] [address] PCP - General Neurology 01/09/19 documented as of this encounter
--- OUTSIDE RECORDS SUMMARY | 2025-02-11 20:09 | XMS_ITS | Encounter Summary ---
Author Organization [facility] Address [address] [place] [address] Care Team Providers Care Sponge Maker Name Role Phone Danni Aguillon MD Primary Care Provider [phone]- [phone] Encounter Details Date Type Department Care Team (Late st Contact Info) Description 04/15/2017 Correspondence Neurology at [facility] [address] [facility] [place] [address] Danni Aguillon MD [address] [place] [phone] PRIOR AUTH Social History Tobacco Use Types Packs/Day [...] 12:00 PM CDT Appointment Laboratory at [facility] [address] [place] [phone] 02/13/2025 1:40 PM CDT Appointment [facility] OB-CLEAN ROOM TECHNICIAN Ultrasound [place] [address] [place] [address] Tia Mosqueda MD [address] [place] [address] 02/23/2025 12:40 PM CDT Appointment Obstetrics & Gynecology at [address] [address] Rachell Jordan MD [address] [place] [address] documented as of this encounter Visit Diagnoses Not on filedocumented in this encounter Care Teams Sponge Maker Relationship Specialty Start Date End Date Danni Aguillon MD [address] [place] [address] [phone] PCP - General Neurology 01/09/19 documented as of this encounter
--- OUTSIDE RECORDS SUMMARY | 2025-02-11 20:09 | XMS_ITS | Encounter Summary ---
[facility] Organization [facility] Address [address], [place] [address] Care Team Providers Care Billing Administrator Name Role Phone Danni Aguillon MD Primary Care Provider [phone] Encounter Details Date Type Department Care Team (Late Contact Info) Description 10/28/2018 Correspondence External to External, [place] [address] PREFERRED ONE Social History Tobacco Use Types Packs/Day Years [...] 02/12/2025 12:00 PM CDT Appointment Laboratory at [address] [address] 02/13/2025 1:40 PM CDT [facility]ment [facility] OB-LAWN SPRINKLER SERVICER Ultrasound [place] [address] [place], [place] 85[address] Tia Mosqueda MD [address] [place], [place] [address] 02/23/2025 12:40 PM CDT Appointment Obstetrics & Gynecology at [facility] [address] [place] [phone] Rachell Jordan MD [address] [place] [address] documented as of this encounter Visit Diagnoses Not on filedocumented in this encounter Care Teams Billing Administrator Relationship Specialty Start Date End Date Danni Aguillon MD [address] [place] [address] PCP - General Neurology 01/09/19 documented as of this encounter
--- OUTSIDE RECORDS SUMMARY | 2025-02-11 20:09 | XMS_ITS | Encounter Summary ---
Author Organization [facility] Address [address] [place] [address] Care Team Providers Care Magazine Keeper Name Role Phone Danni Aguillon MD Primary Care Provider [phone]- [phone] Encounter Details Date Type Department Care Team (Late st Contact Info) Description 01/25/2025 10:25 AM CDT Lab Visit Laboratory at [address] [address] Positive urine drug screen Social History Tobacco Use Types Packs/Day Years [...] Industry Job Start Date Job End Date [place] ogic [employer] Not on file Not on file Not on file documented as of this encounter Plan of Treatment Upcoming Encounters Date Type Department Care Team (Late st Contact Info) Description 02/12/2025 12:00 PM CDT Appointment Laboratory at [address] [address] 02/13/2025 1:40 PM CDT Appointment [facility] OB-CIRCULATION ANALYST Ultrasound [place] [address] [place], [place] [address] Tia Mosqueda MD [address] [place] [address] 02/23/2025 12:40 PM CDT Appointment Obstetrics & Gynecology at [address] [address] Rachell Jordan MD [address] [place] [address] [phone] documented as of this encounter Procedures Procedure Name Priority Date/Time Associated Diagnosis Comments RAPID DRUG PANEL, URINE (WITH CONFIRMATION) Routine 01/25/2025 10:43 AM CDT Positive urine drug screen documented in this encounter Results * Rapid Drug Panel, Urine (with Confirmation) without THC (01/25/2025 10:43 AM CDT) [facility] Amphetamines Screen Not Detected Not Detected 01/26/2025 7:[address] [facility] Barbiturates Screen Not Detected Not Detected 01/26/2025 7:[address] [facility] Benzodiazepines Screen Not Detected Not Detected 01/26/2025 7:[address] [facility] Buprenorphine Screen Not Detected Not Detected 01/26/2025 7:[address] [facility] Cocaine Metabolite Screen Not Detected Not Detected 01/26/2025 7:[address] [facility] Methadone Screen Not Detected Not Detected 01/26/2025 7:[address] [facility] Opiates Screen Not Detected Not Detected 01/26/2025 7:[address] [facility] Oxycodone Screen Not Detected Not Detected 01/26/2025 7:[address] [facility] Phencyclidine (PCP) Screen Not Detected Not Detected 01/26/2025 7:[address] [facility] Creatinine, Urine, Random 40 >20 mg/dL 01/26/2025 7:[address] [facility] Urine Non-blood Collection / Unknown 01/25/2025 10:43 AM CDT 01/25/2025 10:43 AM CDT [facility] - 01/26/2025 7:24 AM CDT The absence [...] us Rachell Jordan MD LAB_1 Final Result [address] [address], [facility] documented in this encounter Visit Diagnoses Diagnosis Positive urine drug screen Nonspecific abnormal toxicological findings documented in this encounter Care Teams Magazine Keeper Relationship Specialty Start Date End Date Danni Aguillon MD [address] [place] [address] PCP - General Neurology 01/09/19 documented as of this encounter
--- OUTSIDE RECORDS SUMMARY | 2025-02-11 20:09 | XMS_ITS | Encounter Summary ---
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 Component Latest Ref Rng 12/20/2024 12/22/2024 12/24/2024 12/29/2024 12/31/2024 01/05/2025 HCG, Quant. Preg. <=4 mIU/mL 46 (H) 130 (H) 444 (H) 3,246 (H) 6,599 (H) 26,545 (H) Rachell Jordan MD to Publications Writer Rn 01/05/25 4:31 PM Result Note Reassuring rise. Repeat in 48 hours. HCG, Quantitative, Serum Called and spoke with the patient to go over the above Hcg result and the message from the provider. Patient is already scheduled to have her next Hcg on Thursday(01/07) and is scheduled for a repeat US on 01/16 due to there was no heart rate yet. Patient also inquired if she could have another Hcg next week just to make sure that the levels arerising. I did go over that once we have the result from Thursday we will call her on Thursday with the recommendation from the provider. All questions answered. Emelia Terrell RN [place] OBGYN MANAGER documented in this encounter Plan of Treatment Upcoming Encounters Date Type Department Care Team (Late st Contact Info) Description 02/12/2025 12:00 PM CDT Appointment Laboratory at [address] [address] 02/13/2025 1:40 PM CDT Appointment [facility] OB-HEEL COVERER MACHINE OPERATOR Ultrasound [place] [address] [place] [address] Tia Mosqueda MD [address] [place], [place] [address] 02/23/2025 12:40 PM CDT Appointment Obstetrics & Gynecology at [facility] [address] [place] [phone] Rachell Jordna MD [address] [place] [address] documented as of this encounter Visit Diagnoses Not on filedocumented in this encounter Care Teams Lumber Material Handler Relationship Specialty Start Date End Date Danni Aguillon MD [address] [place] [address] PCP - General Neurology 01/09/19 documented as of this encounter
--- OUTSIDE RECORDS SUMMARY | 2025-02-11 20:09 | XMS_ITS | Encounter Summary ---
Author Organization [facility] Address [address] [address] Care Team Providers Care Gut Puller Name Role Phone Danni Aguillon MD Primary Care Provider [phone] Encounter Details Date Type Department Care Team (Late Contact Info) Description 10/20/2018 Correspondence External to External, [place] [address] PREFERRED ONE Social History Tobacco Use Types [...] 02/12/2025 12:00 PM CDT Appointment Laboratory at [address] [address] 02/13/2025 1:40 PM CDT Appointment [facility] OB-EAR NOSE THROAT PHYSICIAN Ultrasound [place] [address] [place], [place] [address] Tia Mosqueda MD [address] [place], [place] [address] 02/23/2025 12:40 PM CDT Appointment Obstetrics & Gynecology at [facility] [address] [place] [phone] Rachell Jordan MD [address] [place] [address] documented as of this encounter Visit Diagnoses Not on filedocumented in this encounter Care Teams Gut Puller Relationship Specialty Start Date End Date Danni Aguillon MD [address] [place] [address] PCP - General Neurology 01/09/19 documented as of this encounter
--- OUTSIDE RECORDS SUMMARY | 2025-02-11 20:09 | XMS_ITS | Encounter Summary ---
Author Organization [facility] Address [address] [place] [address] Care Team Providers Care Mental Hygienist Name Role Phone Danni Aguillon MD Primary Care Provider [phone] Reason for Visit * Reason Comments RESULTS, TEST Entered automaticall y based on patient selection in [employer]. 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 Wanda Sinha RN [place] FRENCH WEAVER documented in this encounter Plan of Treatment Upcoming Encounters Date Type Department Care Team (Late st Contact Info) Description 02/12/2025 12:00 PM CDT Appointment Laboratory at [facility] [address] [place] [address] 02/13/2025 1:40 PM CDT Appointment [facility] OB-MIXING PLACE SUPERVISOR Ultrasound [place] [address] [place], [place] [address] Tia Mosqueda MD [address] [facility] [place] [address] 02/23/2025 12:40 PM CDT Appointment Obstetrics & Gynecology at [facility] [address] [place] [phone] Rachell Jordan MD [address] [place], [place] [phone] documented as of this encounter Visit Diagnoses Not on filedocumented in this encounter Care Teams Mental Hygienist Relationship Specialty Start Date End Date Danni Aguillon MD [address] [place] [address] PCP - General Neurology 01/09/19 documented as of this encounter
--- OUTSIDE RECORDS SUMMARY | 2025-02-11 20:09 | XMS_ITS | Encounter Summary ---
Author Organization [facility] Address [address] [place] [address] Care Team Providers Care Wet Chemistry Analyst Name Role Phone No Ref-Primary, Physician Primary Care Provider Danni Aguillon MD Unavailable [phone] Encounter Details Date Type Department Care Team (Late st Contact Info) Description 02/16/2018 Records - [facility] CONVERSION Scan, Provider [...] 03/06/2025 8:00 AM CDT Infusion Therapy Visit [facility] [address] [place] [address] [place] [phone] Danni Aguillon MD [address] [place] [address] 05/15/2025 3:00 PM CDT Office Visit [facility] [address] [phone] Danni Aguillon MD [address] [place] [address] documented as of this encounter Visit Diagnoses Not on filedocumented in this encounter Additional Health Concerns Infection Onset Date Last Indicated Resolved Time Rule Out COVID-19 10/12/2022 10/12/2022 10/13/2022 8:12 PM MANAGER PRIVACY documented as of this encounter Care Teams Wet Chemistry Analyst Relationship Specialty Start Date End Date No Ref-Primary, Physician PCP - General 10/12/22 Danni Aguillon MD [address] [place] [address] Assigned Neuroscience Provider 12/06/22 documented as of this encounter
--- OUTSIDE RECORDS SUMMARY | 2025-02-11 20:09 | XMS_ITS | Encounter Summary ---
Author Organization [facility] Address [address] [place] [address] Care Team Providers Care Salesperson Neckties Name Role Phone Danni Aguillon MD Primary Care Provider [phone]- [phone] Encounter Details Date Type Department Care Team (Late Contact Info) Description 04/21/[address] [facility] [address] [facility] [place] [address] Danni Aguillon MD [address] [place] [phone] PLAN OF TREATMENT CORAM Social History Tobacco Use Types Packs/Day Years [...] 02/12/2025 12:00 PM CDT Appointment Laboratory at [facility] [address] [place] [phone] 02/13/2025 1:40 PM CDT Appointment [facility] OB-CHILD ADOLESCENT PSYCHIATRIST Ultrasound [place] [address] [place] [address] Tia Mosqueda MD [address] [address] 02/23/2025 12:40 PM CDT Appointment Obstetrics & Gynecology at [address] [phone] Rachell Jordan MD [address] [place] [address] documented as of this encounter Visit Diagnoses Not on filedocumented in this encounter Care Teams Salesperson Neckties Relationship Specialty Start Date End Date Danni Aguillon MD [address] [place] [phone] PCP - General Neurology 01/09/19 documented as of this encounter
--- OUTSIDE RECORDS SUMMARY | 2025-02-11 20:09 | XMS_ITS | Encounter Summary ---
Author Organization [facility] Address [address] [address] Care Team Providers Care Process Owner Name Role Phone Danni Aguillon MD Primary Care Provider [phone] Encounter Details Date Type Department Care Team (Late st Contact Info) Description 04/16/2017 Correspondence External to External, [place] [address] PRIOR AUTH Social History Tobacco Use Types [...] 02/12/2025 12:00 PM CDT Appointment Laboratory at [address] [address] 02/13/2025 1:40 PM CDT Appointment [facility] OB-MEDICAL IMAGING DIRECTOR Ultrasound [place] [address] [place], [place] [address] Tia Mosqueda MD [address] [place] [address] 02/23/2025 12:40 PM CDT Appointment Obstetrics & Gynecology at [facility] [address] [place] [phone] Rachell Jordan MD [address] [place] [address] documented as of this encounter Visit Diagnoses Not on filedocumented in this encounter Care Teams Process Owner Relationship Specialty Start Date End Date Danni Aguillon MD [address] [place] [address] PCP - General Neurology 01/09/19 documented as of this encounter
--- OUTSIDE RECORDS SUMMARY | 2025-02-11 20:09 | XMS_ITS | Encounter Summary ---
Author Organization [facility] Address [address] [place] [address] Care Team Providers Care Metal Cleaner Name Role Phone Danni Aguillon MD Primary Care Provider [phone]- [phone] Encounter Details Date Type Department Care Team (Late Contact Info) Description 03/26/2017 Correspondence Neurology at [facility] [address] [facility] [place] [address] Danni Aguillon MD [address] [place] [address] [phone] PLAN OF TREATMETN Social History Tobacco Use Types Packs/Day Years [...] 02/12/2025 12:00 PM CDT Appointment Laboratory at [address] [phone] 02/13/2025 1:40 PM CDT Appointment [facility] OB-CONSTRUCTION CONTROLLER Ultrasound [place] [address] [place] [address] Tia Mosqueda MD [address] [place] [address] 02/23/2025 12:40 PM CDT Appointment Obstetrics & Gynecology at [address] [phone] Rachell Jordan MD [address] [place] [address] documented as of this encounter Visit Diagnoses Not on filedocumented in this encounter Care Teams Metal Cleaner Relationship Specialty Start Date End Date Danni Aguillon MD [address] [place] [address] PCP - General Neurology 01/09/19 documented as of this encounter
--- OUTSIDE RECORDS SUMMARY | 2025-02-11 20:09 | XMS_ITS | Encounter Summary ---
Author Organization [facility] Address [address] [place] [address] Care Team Providers Care Statistical Modeler Name Role Phone Danni Aguillon MD Primary Care Provider [phone]- [phone] Encounter Details Date Type Department Care Team (Late Contact Info) Description 08/15/2019 Correspondence Neurology at [facility] [address] [facility] [place] [address] Danni Aguillon MD [address] [place] [phone] TYSABRI PATIENT STATUS REPORT Social History Tobacco Use Types Packs/Day Years [...] 02/12/2025 12:00 PM CDT Appointment Laboratory at [address] [address] 02/13/2025 1:40 PM CDT Appointment [facility] OB-JEWELRY REPAIRER Ultrasound [place] [address] [place], [place] [address] Tia Mosqueda MD [address] [place] [address] 02/23/2025 12:40 PM CDT Appointment Obstetrics & Gynecology at [address] [phone] Rachell Jordan MD [address] [place], [place] [phone] documented as of this encounter Visit Diagnoses Not on filedocumented in this encounter Care Teams Statistical Modeler Relationship Specialty Start Date End Date Danni Aguillon MD [address] [place] [phone] PCP - General Neurology 01/09/19 documented as of this encounter
--- OUTSIDE RECORDS SUMMARY | 2025-02-11 20:09 | XMS_ITS | Encounter Summary ---
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[employer] Not on file Not on file Not on file documented as of this encounter Plan of Treatment Upcoming Encounters Date Type Department Care Team (Late st Contact Info) Description 02/12/2025 12:00 PM CDT Appointment Laboratory at [facility] [address] [place] [phone] 02/13/2025 1:40 PM CDT Appointment [facility] OB-DIRECTOR TALENT MANAGEMENT Ultrasound [place] [address] [place] [address] Tia Mosqueda MD [address] [place] [address] 02/23/2025 12:40 PM CDT Appointment Obstetrics & Gynecology at [address] [phone] Rachell Jordan MD [address] [place] [address] documented as of this encounter Procedures Procedure Name Priority Date/Time Associated Diagnosis Comments HCG, QUANTITATIVE, SERUM Same Day 12/31/2024 12:48 PM TOP LIFT SCOURER Bleeding in early SAB (spontaneous ) documented in this encounter Results * (ABNORMAL) HCG, Quantitative, Serum (12/31/2024 12:48 PM TOP LIFT SCOURER) HCG, Quantitative 6,599(H) <=4 mIU/mL 12/31/2024 3:22 PM TOP LIFT SCOURER [facility] Blood Venipuncture / Unknown 12/31/2024 12:48 PM TOP LIFT SCOURER 12/31/2024 1:04 PM TOP LIFT SCOURER [facility] - 12/31/2024 3:22 PM TOP LIFT SCOURER Expected ranges Negative: <5 mIU/mL Indeterminate: 5-25 mIU/mL Positive: >25 mIU/mL Suggest repeat testing of indeterminate result in 72 hours. us Rachell Jordan MD LAB_1 Final Result [address] [address], [facility] documented in this encounter Visit Diagnoses Diagnosis Bleeding in early Unspecified hemorrhage in early , unspecified as to episode of care SAB (spontaneous ) Unspecified spontaneous without mention of complication Spotting in early Spotting complicating , antepartum condition or complication documented in this encounter Care Teams Director Building Relationship Specialty Start Date End Date Danni Aguillon MD [address] [place] [address] PCP - General Neurology 01/09/19 documented as of this encounter
--- OUTSIDE RECORDS SUMMARY | 2025-02-11 20:09 | XMS_ITS | Encounter Summary ---
Author Organization [facility] Address [address] [place] [address] Care Team Providers Care Circular Clerk Name Role Phone Danni Aguillon MD Primary Care Provider +1- [phone] Encounter Details Date Type Department Care Team (Late Contact Info) Description 04/21/2019 Correspondence Neurology at [facility] [address] [place] [address] Danni Aguillon MD [address] [place] [address] [phone] PLAN OF TREATMENT CORAM Social History Tobacco [...] 02/12/2025 12:00 PM CDT Appointment Laboratory at [facility] [address] [place] [phone] 02/13/2025 1:40 PM CDT Appointment [facility] OB-BAGGAGE CHECKER Ultrasound [place] [address] [place] [address] Tia Mosqueda MD [address] [address] 02/23/2025 12:40 PM CDT Appointment Obstetrics & Gynecology at [address] [phone] Rachell Jordan MD [address] [place] [address] documented as of this encounter Visit Diagnoses Not on filedocumented in this encounter Care Teams Circular Clerk Relationship Specialty Start Date End Date Danni Aguillon MD [address] [place] [phone] PCP - General Neurology 01/09/19 documented as of this encounter
--- OUTSIDE RECORDS SUMMARY | 2025-02-11 20:09 | XMS_ITS | Encounter Summary ---
Author Organization [facility] Address [address] [address] Care Team Providers Care Tin Stacker Name Role Phone Danni Aguillon MD Primary Care Provider +1 [phone] Encounter Details Date Type Department Care Team (Late st Contact Info) Description 11/11/2018 Correspondence External to External, [place] [address] PREFERRED ONE Social History Tobacco Use Types [...] 02/12/2025 12:00 PM CDT Appointment Laboratory at [address] [phone] 02/13/2025 1:40 PM CDT Appointment [facility] OB-WORLD TRAVEL COUNSELOR Ultrasound [place] [address] [place], [place] [phone] Tia Mosqueda MD [address] [place], [place] [address] 02/23/2025 12:40 PM CDT Appointment Obstetrics & Gynecology at [facility] [address] [place] [phone] Rachell Jordan MD [address] [place] [address] documented as of this encounter Visit Diagnoses Not on filedocumented in this encounter Care Teams Tin Stacker Relationship Specialty Start Date End Date Danni Aguillon MD [address] [place] [address] PCP - General Neurology 01/09/19 documented as of this encounter
--- OUTSIDE RECORDS SUMMARY | 2025-02-11 20:09 | XMS_ITS | Encounter Summary ---
Author Organization [facility] Address [address] [place] [address] Care Team Providers Care Coat Agent Name Role Phone No Ref-Primary, Physician Primary Care Provider Danni Aguillon MD Unavailable [phone] Encounter Details Date Type Department Care Team (Late st Contact Info) Description 01/28/2018 Records - [facility] HE CONVERSION Scan, Provider [...] 03/06/2025 8:00 AM CDT Infusion Therapy Visit [facility] [address] RUSS [address] [place] [phone] Danni Aguillon MD [address] [place] [address] 820385 05/15/2025 3:00 PM CDT Office Visit [facility] [address] [phone] Danni Aguillon MD [address] [place] [address] [phone] documented as of this encounter Visit Diagnoses Not on filedocumented in this encounter Additional Health Concerns Infection Onset Date Last Indicated Resolved Time Rule Out COVID-19 10/12/2022 10/12/2022 10/13/2022 8:12 PM SKIN PASS OPERATOR documented as of this encounter Care Teams Coat Agent Relationship Specialty Start Date End Date No Ref-Primary, Physician PCP - General 10/12/22 Danni Aguillon MD [address] [place] [address] Assigned Neuroscience Provider 12/06/22 documented as of this encounter
--- OUTSIDE RECORDS SUMMARY | 2025-02-11 20:09 | XMS_ITS | Encounter Summary ---
Author Organization [facility] Address [address], [place] [address] Care Team Providers Care Oven Attendant Name Role Phone Danni Aguillon MD Primary Care Provider [phone] Encounter Details Date Type Department Care Team (Late st Contact Info) Description 02/16/2019 Correspondence External to External, [place] [address] NOTICE OF PATIENT AUTH Social History Tobacco [...] 12:00 PM CDT Appointment Laboratory at [address] [address] 02/13/2025 1:40 PM CDT Appointment [facility] OB-ADMINISTRATIVE LIBRARY ASSISTANT Ultrasound [place] [address] [place], [place] 1[address] Tia Mosqueda MD [address] [place], [place] [address] 02/23/2025 12:40 PM CDT Appointment Obstetrics & Gynecology at [facility] [phone] Rachell Jordan MD [address] [place] [address] documented as of this encounter Visit Diagnoses Not on filedocumented in this encounter Care Teams Oven Attendant Relationship Specialty Start Date End Date Danni Aguillon MD [address] [place] [address] [phone] PCP - General Neurology 01/09/19 documented as of this encounter
--- OUTSIDE RECORDS SUMMARY | 2025-02-11 20:09 | XMS_ITS | Encounter Summary ---
Author Organization [facility] Address [address] [place] [address] Care Team Providers Care Director Public Service Name Role Phone Danni Aguillon MD Primary Care Provider +1- [phone] Encounter Details Date Type Department Care Team (Late st Contact Info) Description 02/23/2017 Correspondence Neurology at [facility] [address] [place] [address] Danni Aguillon MD [address] [place] [address] [phone] PLAN OF TREATMENT Social History Tobacco Use [...] 02/12/2025 12:00 PM CDT Appointment Laboratory at [facility] [address] [place] [phone] 02/13/2025 1:40 PM CDT Appointment [facility] OB-LAST IRONER Ultrasound [place] [address] [place] [address] Tia Mosqueda MD [address] [place] [address] 02/23/2025 12:40 PM CDT Appointment Obstetrics & Gynecology at [address] [phone] Rachell Jordan MD [address] [place] [address] documented as of this encounter Visit Diagnoses Not on filedocumented in this encounter Care Teams Director Public Service Relationship Specialty Start Date End Date Danni Aguillon MD [address] [place] [address] PCP - General Neurology 01/09/19 documented as of this encounter
--- OUTSIDE RECORDS SUMMARY | 2025-02-11 20:10 | XMS_ITS | Encounter Summary ---
Author Organization [facility] Address [address], [place] [address] Care Team Providers Care Plastic Welder Name Role Phone Danni Aguillon MD Primary Care Provider +1- [phone] Encounter Details Date Type Department Care Team (Late st Contact Info) Description 01/05/2025 11:10 AM BLIND TEACHER Lab Visit Laboratory at [address] [address] Positive test Social History Tobacco Use Types [...] 02/12/2025 12:00 PM CDT Appointment Laboratory at [address] [address] 02/13/2025 1:40 PM CDT Appointment [facility] OB-MARINE EQUIPMENT DESIGN ENGINEER Ultrasound [place] [address] [place], [place] [phone] Tia Mosqueda MD [address] [place] [address] 02/23/2025 12:40 PM CDT Appointment Obstetrics & Gynecology at [address] [phone] Rachell Jordan MD [address] [place] [address] documented as of this encounter Procedures Procedure Name Priority Date/Time Associated Diagnosis Comments HCG, QUANTITATIVE, SERUM Same Day 01/05/2025 11:17 AM BLIND TEACHER Positive test documented in this encounter Results * (ABNORMAL) HCG, Quantitative, Serum (01/05/2025 11:17 AM BLIND TEACHER) HCG, Quantitative 26,545(H) <=4 mIU/mL 01/05/2025 4:27 PM BLIND TEACHER [facility] Blood Venipuncture / Unknown 01/05/2025 11:17 AM BLIND TEACHER 01/05/2025 11:17 AM BLIND TEACHER Narrative [facility] - 01/05/2025 4:27 PM BLIND TEACHER Expected ranges Negative: <5 mIU/mL Indeterminate: 5-25 mIU/mL Positive: >25 mIU/mL Suggest repeat testing of indeterminate result in 72 hours. us Rachell Jordan MD LAB_1 Final Result [facility] [address] documented in this encounter Visit Diagnoses Diagnosis Positive test examination or test, positive result documented in this encounter Care Teams Plastic Welder Relationship Specialty Start Date End Date Danni Aguillon MD [address] [place] [address] PCP - General Neurology 01/09/19 documented as of this encounter
--- OUTSIDE RECORDS SUMMARY | 2025-02-11 20:10 | XMS_ITS | Encounter Summary ---
Author Organization [facility] Address [address], [place] [address] Care Team Providers Care Insecticide Mixer Name Role Phone Danni Aguillon MD Primary Care Provider +1- [phone] Encounter Details Date Type Department Care Team (Late st Contact Info) Description 10/14/2016 Correspondence [facility] [address] [place] [address]. [place] [address] Danni Aguillon MD [address] [place] [address] [phone] PLAN OF TREATMENT POT Social History Tobacco Use Types Packs/Day Years [...] 02/12/2025 12:00 PM CDT Appointment Laboratory at [facility] [address] [place] [phone] 02/13/2025 1:40 PM CDT Appointment [facility] OB-CURTAIN STRETCHER Ultrasound [place] [address] [place] [address] Tia Mosqueda MD [address] [place] [address] 02/23/2025 12:40 PM CDT Appointment Obstetrics & Gynecology at [address] [phone] Rachell Jordan MD [address] [place] [address] documented as of this encounter Visit Diagnoses Not on filedocumented in this encounter Care Teams Insecticide Mixer Relationship Specialty Start Date End Date Danni Aguillon MD [address] [place] [address] [phone] PCP - General Neurology 01/09/19 documented as of this encounter
--- OUTSIDE RECORDS SUMMARY | 2025-02-11 20:10 | XMS_ITS | Encounter Summary ---
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 See Nurse triage TE from 12/20/2024 for US results and f/u. Wanda Sinha RN [place] INFORMATION BROKER RVISOR BOILER REPAIR * Emelia Terrell RN - 12/29/2024 4:48 PM CST Images from the original note were not included. Component Latest Ref Rng 12/20/2024 12/22/2024 12/24/2024 12/29/2024 HCG, Quant. Preg. <=4 mIU/mL 46 (H) 130 (H) 444 (H) 3,246 (H) Rachell Jordan MD P Av Cycle Consultant Rn Reassuring rise from 12/24, repeat in 48 hours if desired. Called and spoke with the patient to go over the above message from the provider and to let her know that we can repeat the Hcg in 48 hours if she would like. The patient stated that yes for her peace of mind she would like the level repeated she would like to repeat her Hcg in 48 hours and will schedule online. We will watch for this Hcg on Thursday and will follow up then. All questions answered. Emelia Terrell RN [place] OBGYN RVISOR BOILER REPAIR RVISOR BOILER REPAIR RVISOR BOILER REPAIR documented in this encounter Plan of Treatment Upcoming Encounters Date Type Department Care Team (Late st Contact Info) Description 02/12/2025 12:00 PM CDT Appointment Laboratory at [address] [phone] 02/13/2025 1:40 PM CDT Appointment [facility] OB-SUPERVISOR REACTOR FUELING Ultrasound [place] [address] [place], [place] [phone] Tia Mosqueda MD [address] [place] [address] 02/23/2025 12:40 PM CDT Appointment Obstetrics & Gynecology at [address] [phone] Rachell Jordan MD [address] [place] [address] documented as of this encounter Visit Diagnoses Not on filedocumented in this encounter Care Teams Hogshead Roller Relationship Specialty Start Date End Date Danni Aguillon MD [address] [place] [address] PCP - General Neurology 01/09/19 documented as of this encounter
--- OUTSIDE RECORDS SUMMARY | 2025-02-11 20:10 | XMS_ITS | Encounter Summary ---
Author Organization [facility] Address [address], [place] [address] Care Team Providers Care Rock Crushing Machine Operator Name Role Phone Danni Aguillon MD Primary Care Provider +1- [phone] Encounter Details Date Type Department Care Team (Late st Contact Info) Description 11/07/[address] [facility] Radiology [address] [place] [address] Radiology, Provider MRI SAFETY AND HEALTH HISTORY QUESTIONNAIRE Social History Tobacco Use Types Packs/Day Years [...] 02/12/2025 12:00 PM CDT Appointment Laboratory at [facility] [address] [place] [phone] 02/13/2025 1:40 PM CDT Appointment [facility] OB-LEAD RADIOLOGIC TECHNOLOGIST Ultrasound [place] [address] [place], [place] [phone] Tia Mosqueda MD [address] [place], [place] [phone] 02/23/2025 12:40 PM CDT Appointment Obstetrics & Gynecology at [address] [address] Rachell Jordan MD [address] [place] [address] documented as of this encounter Visit Diagnoses Not on filedocumented in this encounter Care Teams Rock Crushing Machine Operator Relationship Specialty Start Date End Date Danni Aguillon MD [address] [place] [address] PCP - General Neurology 01/09/19 documented as of this encounter
--- OUTSIDE RECORDS SUMMARY | 2025-02-11 20:10 | XMS_ITS | Encounter Summary ---
Author Organization [facility] Address [address] [place] [address] Care Team Providers Care Skoog Patching Machine Operator Name Role Phone Danni Aguillon MD Primary Care Provider [phone] Reason for Visit * Reason Comments Concerns Encounter Details Date Type Department Care Team (Late st Contact Info) Description 12/28/2024 7:30 PM BOX SEALING MACHINE CATCHER E-Visit Obstetrics & Gynecology at [address] [address] Nikole Winkler, COMPUTER SYSTEMS TECHNOLOGY INSTRUCTOR, OIL INSPECTOR [address] [place] [address] Dx: Positive test (Primary Dx) Social History Tobacco Use Types [...] 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 Patient had an Hcg drawn on 12/22, 12/24 please see results. -Patient is scheduled for an viability/dating US on 01/03 - OB is scheduled for 01/[address] Julian Terrell RN [place] OBGYN SEALING MACHINE CATCHER documented in this encounter Plan of Treatment Upcoming Encounters Date Type Department Care Team (Late st Contact Info) Description 02/12/2025 12:00 PM CDT Appointment Laboratory at [address] [address] 02/13/2025 1:40 PM CDT Appointment [facility] OB-APPLICATION TECHNICIAN Ultrasound [place] [address] [place] [address] Tia Mosqueda MD [address] [place] [address] 02/23/2025 12:40 PM CDT Appointment Obstetrics & Gynecology at [address] [phone] Rachell Jordan MD [address] [place] [address] documented as of this encounter Results * (ABNORMAL) HCG, Quantitative, Serum (12/29/2024 12:13 PM BOX SEALING MACHINE CATCHER) HCG, Quantitative 3,246(H) <=4 mIU/mL 12/29/2024 3:28 PM BOX SEALING MACHINE CATCHER [facility] Blood Venipuncture / Unknown 12/29/2024 12:13 PM BOX SEALING MACHINE CATCHER 12/29/2024 12:13 PM BOX SEALING MACHINE CATCHER Narrative [facility] - 12/29/2024 3:28 PM BOX SEALING MACHINE CATCHER Expected ranges Negative: <5 mIU/mL Indeterminate: 5-25 mIU/mL Positive: >25 mIU/mL Suggest repeat testing of indeterminate result in 72 hours. us Rachell Jordan MD LAB_1 Final Result [facility] [place] [address] documented in this encounter Visit Diagnoses Diagnosis Positive test- Primary examination or test, positive result Spotting in early Spotting complicating , antepartum condition or complication documented in this encounter Care Teams Skoog Patching Machine Operator Relationship Specialty Start Date End Date Danni Aguillon MD [address] [place] [address] PCP - General Neurology 01/09/19 documented as of this encounter
--- OUTSIDE RECORDS SUMMARY | 2025-02-11 20:10 | XMS_ITS | Encounter Summary ---
Author Organization [facility] Address [address] [place] [address] Care Team Providers Care Insurance Adjustor Name Role Phone Danni Aguillon MD Primary Care Provider [phone] Reason for Referral * Procedure/Equipment (Routine) - Incomplete Specialty Diagnoses / Procedures Referred By Contac t Referred To Contact Diagnoses Establish gestational age, ultrasound Procedures OBGYN First Trimester Ultrasound Nikole Winkler, SARA, BAG WORKER [address] [place] [address] Phone: tel: fax: Referral ID Status Reason Start Date Expiration Date V isits Requested Visits Authorized [id number] Incomplete 01/16/2025 04/17/2026 1 1 EY INSTRUMENT OPERATOR Encounter Details Date Type Department Care Team (Late st Contact Info) Description 01/03/2025 Notes/Orders food tray assembler Ultrasound at [address] [address] Nikole Winkler, SARA, BAG WORKER [address] [place] [address] Establish gestational age, ultrasound (Primary Dx) Social History Tobacco Use Types [...] 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 [address] Tia Mosqueda MD [address] [place], [place] 5627[address] 02/23/2025 12:40 PM CDT Appointment Obstetrics & Gynecology at [facility] [address] [place] [phone] Rachell Jordan MD [address] [place] [address] documented as of this encounter Results * (ABNORMAL) OBGYN First [...] included. 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 supervisor cloth winding Ultrasound At [address] [address] Dept Patient Information Name: Vangie Brunner : 1990 (34 y.o.) (F) BMI: 40.55 kg/m Date: 01/16/2025 8:38 AM Performed By Management Technician(s) initials: DP Attending: Layla Velez MD Referred by: Nikole Winkler APRN, COCO Referring location: [facility] Procedure OBGY FIRST TRIMESTER ULTRASOUND Indications Establish gestational age, [...] FW: No EFW calculated for this study Management Technician Comments GA by Ultrasound is 7w2d +/- [...] provider. Layla Velez MD us Nikole Winkler NEURORADIOLOGIST, BAG WORKER RAD US Final R esult documented in this encounter Visit Diagnoses Diagnosis Establish gestational age, ultrasound- Primary Encounter for routine screening for malformation using ultrasonics Establish gestational age, ultrasound Encounter for routine screening for malformation using ultrasonics documented in this encounter Care Teams Insurance Adjustor Relationship Specialty Start Date End Date Danni Aguillon MD [address] [place] [address] PCP - General Neurology 01/09/19 documented as of this encounter
--- OUTSIDE RECORDS SUMMARY | 2025-02-11 20:10 | XMS_ITS | Encounter Summary ---
Author Organization [facility] Address [address] [address] Care Team Providers Care Metal Checker Name Role Phone Danni Aguillon MD Primary Care Provider [phone]- [phone] Encounter Details Date Type Department Care Team (Late st Contact Info) Description 07/05/2014 Correspondence [facility] Radiology [address] [place] [address] Radiology, Provider MRI SAFETY SHEET AND COMPATIBILITY [...] 02/12/2025 12:00 PM CDT Appointment Laboratory at [address] [address] 02/13/2025 1:40 PM CDT Appointment [facility] OB-SHOWER DOORS AND PANELS FABRICATOR Ultrasound [place] [address] [place], [place] [address] Tia Mosqueda MD [address] [place], [place] [address] 02/23/2025 12:40 PM CDT Appointment Obstetrics & Gynecology at [address] [place] [phone] Rachell Jordan MD [address] [place] [address] documented as of this encounter Visit Diagnoses Not on filedocumented in this encounter Care Teams Metal Checker Relationship Specialty Start Date End Date Danni Aguillon MD [address] [place] [address] PCP - General Neurology 01/09/19 documented as of this encounter
--- OUTSIDE RECORDS SUMMARY | 2025-02-11 20:10 | XMS_ITS | Encounter Summary ---
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 Not on file Not on file documented as of this encounter Plan of Treatment Upcoming Encounters Date Type Department Care Team (Late st Contact Info) Description 02/12/2025 12:00 PM CDT Appointment Laboratory at [address] [address] 02/13/2025 1:40 PM CDT Appointment [facility] OB-AIR TRAFFIC SUPERVISOR Ultrasound [place] [address] [place] [address] Tia Mosqueda MD [address] [place] [address] 02/23/2025 12:40 PM CDT Appointment Obstetrics & Gynecology at [address] [address] Rachell Jordan MD [address] [place] [address] documented as of this encounter Visit Diagnoses Not on filedocumented in this encounter Care Teams City Sanitarian Relationship Specialty Start Date End Date Danni Aguillon MD [address] [place] [address] PCP - General Neurology 01/09/19 documented as of this encounter
--- OUTSIDE RECORDS SUMMARY | 2025-02-11 20:10 | XMS_ITS | Encounter Summary ---
Author Organization [facility] Address [address], [place] [address] Care Team Providers Care Terrazzo Laborer Name Role Phone Danni Aguillon MD Primary Care Provider +1- [phone] Encounter Details Date Type Department Care Team (Late st Contact Info) Description 07/28/2016 Correspondence External to PRIOR AUTHORIZATION FORM Social History Tobacco Use Types Packs/Day [...] 02/12/2025 12:00 PM CDT Appointment Laboratory at [address] [address] 02/13/2025 1:40 PM CDT Appointment [facility] OB-SECURITY INSTALLATION TECHNICIAN Ultrasound [place] [address] [place], [place] [address] Tia Mosqueda MD [address] [place], [place] [address] 02/23/2025 12:40 PM CDT Appointment Obstetrics & Gynecology at [address] [address] Rachell Jordan MD [address] [place] [address] documented as of this encounter Visit Diagnoses Not on filedocumented in this encounter Care Teams Terrazzo Laborer Relationship Specialty Start Date End Date Danni Aguillon MD [address] [place] [address] PCP - General Neurology 01/09/19 documented as of this encounter
--- OUTSIDE RECORDS SUMMARY | 2025-02-11 20:10 | XMS_ITS | Encounter Summary ---
Author Organization [facility] Address [address], [place] [address] Care Team Providers Care Patrol Police Lieutenant Name Role Phone Danni Aguillon MD Primary Care Provider +1 [phone] Encounter Details Date Type Department Care Team (Latest Contact Info) Description 12/13/2019 Correspondence None No Primary/Referring, Phy RX CORAM Social History Tobacco Use Types Packs/Day [...] 12:00 PM CDT Appointment Laboratory at [address] [address] 02/13/2025 1:40 PM CDT Appointment [facility] OB-MARKETING STRATEGY MANAGER Ultrasound [place] [address] [place], [place] [address] Tia Mosqueda MD [address] [place], [place] [address] 02/23/2025 12:40 PM CDT Appointment Obstetrics & Gynecology at [facility] [address] [place] [address] Rachell Jordan MD [address] [place] [address] documented as of this encounter Visit Diagnoses Not on filedocumented in this encounter Care Teams Patrol Police Lieutenant Relationship Specialty Start Date End Date Danni Aguillon MD [address] [place] [address] PCP - General Neurology 01/09/19 documented as of this encounter
--- OUTSIDE RECORDS SUMMARY | 2025-02-11 20:10 | XMS_ITS | Encounter Summary ---
Author Organization [facility] Address [address] [address] Care Team Providers Care General Surgery Physician Assistant Name Role Phone Danni Aguillon MD Primary Care Provider +1- [phone] Encounter Details Date Type Department Care Team (Late st Contact Info) Description 08/20/2016 Correspondence External to External, [place] [address] FREE DRUG PROGRAM ENROLLMENT Social History Tobacco Use Types Packs/Day Years [...] 02/12/2025 12:00 PM CDT Appointment Laboratory at [address] [address] 02/13/2025 1:40 PM CDT Appointment [facility] OB-ACOUSTICAL TILE PATTERNMAKER Ultrasound [place] [address] [place], [place] [address] Tia Mosqueda MD [address] [place], [place] [address] 02/23/2025 12:40 PM CDT Appointment Obstetrics & Gynecology at [facility] [address] [place] [phone] Rachell Jordan MD [address] [place] [address] documented as of this encounter Visit Diagnoses Not on filedocumented in this encounter Care Teams General Surgery Physician Assistant Relationship Specialty Start Date End Date Danni Aguillon MD [address] [place] [address] PCP - General Neurology 01/09/19 documented as of this encounter
--- OUTSIDE RECORDS SUMMARY | 2025-02-11 20:10 | XMS_ITS | Encounter Summary ---
[facility] Address [address] [address] Care Team Providers Care Airplane First Officer Name Role Phone Danni Aguillon MD Primary Care Provider +1- [phone] Encounter Details Date Type Department Care Team (Late st Contact Info) Description 11/11/2016 Correspondence [facility] [address] [facility] [place] [address]. [place] [address] Danni Aguillon MD [address] [place] [address] [id number] PLAN OF TREATMENT Social History Tobacco Use [...] 12:00 PM CDT Appointment Laboratory at [facility] [address] [place] [phone] 02/13/2025 1:40 PM CDT [facility]ment [facility] OB-MANAGER FUNCTIONAL Ultrasound [place] [address] [place] [address] Tia Mosqueda MD [address] [place] [address] 02/23/2025 12:40 PM CDT Appointment Obstetrics & Gynecology at [address] [address] Rachell Jordan MD [address] [place] [address] documented as of this encounter Visit Diagnoses Not on filedocumented in this encounter Care Teams Airplane First Officer Relationship Specialty Start Date End Date Danni Aguillon MD [address] [place] [address] PCP - General Neurology 01/09/19 documented as of this encounter
--- OUTSIDE RECORDS SUMMARY | 2025-02-11 20:10 | XMS_ITS | Encounter Summary ---
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 [employer] Not on file Not on file Not on file documented as of this encounter Plan of Treatment Upcoming Encounters Date Type Department Care Team (Late st Contact Info) Description 02/12/2025 12:00 PM CDT Appointment Laboratory at [address] [address] 02/13/2025 1:40 PM CDT Appointment [facility] OB-CAMPAIGN WORKER Ultrasound [place] [address] [place] [address] Tia Mosqueda MD [address] [place] [address] 02/23/2025 12:40 PM CDT Appointment Obstetrics & Gynecology at [address] [address] Rachell Jordan MD [address] [place] [address] documented as of this encounter Visit Diagnoses Not on filedocumented in this encounter Care Teams Catering Operations Manager Relationship Specialty Start Date End Date Danni Aguillon MD [address] [place] [address] PCP - General Neurology 01/09/19 documented as of this encounter
--- OUTSIDE RECORDS SUMMARY | 2025-02-11 20:10 | XMS_ITS | Encounter Summary ---
Author Organization [facility] Address [address] [place] [address] Care Team Providers Care Nursing Aide Name Role Phone Danni Aguillon MD Primary Care Provider +1- [phone] Encounter Details Date Type Department Care Team (Late st Contact Info) Description 09/02/2016 Correspondence None No Primary/Referring, Phy SAFETY AND BENEFIT RISK MANAGEMENT Social History Tobacco Use Types Packs/Day Years [...] 02/12/2025 12:00 PM CDT Appointment Laboratory at [address] [address] 02/13/2025 1:40 PM CDT Appointment [facility] OB-PRINTER SMALL PRINT SHOP Ultrasound [place] [address] [place], [place] [address] Tia Mosqueda MD [address] [place], [place] [address] 02/23/2025 12:40 PM CDT Appointment Obstetrics & Gynecology at [facility] [address] [place] [address] Rachell Jordan MD [address] [place] [address] documented as of this encounter Visit Diagnoses Not on filedocumented in this encounter Care Teams Nursing Aide Relationship Specialty Start Date End Date Danni Aguillon MD [address] [place] [address] PCP - General Neurology 01/09/19 documented as of this encounter
--- OUTSIDE RECORDS SUMMARY | 2025-02-11 20:10 | XMS_ITS | Encounter Summary ---
Author Organization [facility] Address [address] [place] [address] Care Team Providers Care Clerical Administrative Assistant Name Role Phone Danni Aguillon MD Primary Care Provider +1- [phone] Encounter Details Date Type Department Care Team (Late st Contact Info) Description 12/29/2024 Results Follow-Up Obstetrics & Gynecology at [address] [address] Emelia Terrell RN Social History [...] Industry Job Start Date Job End Date [employer] Not on file Not on file Not on file documented as of this encounter Plan of Treatment Upcoming Encounters Date Type Department Care Team (Late st Contact Info) Description 02/12/2025 12:00 PM CDT Appointment Laboratory at [address] [address] 02/13/2025 1:40 PM CDT Appointment [facility] OB-DRYING MACHINE OPERATOR Ultrasound [place] [address] [place] [address] Tia Mosqueda MD [address] [place] [address] 02/23/2025 12:40 PM CDT Appointment Obstetrics & Gynecology at [address] [address] Rachell Jordan MD [address] [place] [address] documented as of this encounter Visit Diagnoses Not on filedocumented in this encounter Care Teams Clerical Administrative Assistant Relationship Specialty Start Date End Date Danni Aguillon MD [address] [place] [address] PCP - General Neurology 01/09/19 documented as of this encounter
--- OUTSIDE RECORDS SUMMARY | 2025-02-11 20:10 | XMS_ITS | Encounter Summary ---
Author Organization [facility] Address [address] [place] [address] Care Team Providers Care E Merchant Name Role Phone Danni Aguillon MD Primary Care Provider +1- [phone] Encounter Details Date Type Department Care Team (Late st Contact Info) Description 10/07/2017 Correspondence Neurology at [facility] [address] [facility] [place] [address] Danni Aguillon MD [address] [place] [address] [phone] PLAN OF TREATMENT Social History Tobacco Use [...] 02/12/2025 12:00 PM CDT Appointment Laboratory at [facility] [address] [place] [address] 02/13/2025 1:40 PM CDT Appointment [facility] OB-DESIGN ENGINEER AGRICULTURAL EQUIPMENT Ultrasound [place] [address] [place] [address] Tia Mosqueda MD [address] [place] [address] 02/23/2025 12:40 PM CDT Appointment Obstetrics & Gynecology at [address] [address] Rachell Jordan MD [address] [place] [address] documented as of this encounter Visit Diagnoses Not on filedocumented in this encounter Care Teams E Merchant Relationship Specialty Start Date End Date Danni Aguillon MD [address] [place] [address] PCP - General Neurology 01/09/19 documented as of this encounter
--- OUTSIDE RECORDS SUMMARY | 2025-02-11 20:10 | XMS_ITS | Encounter Summary ---
Author Organization [facility] Address [address], [place] [address] Care Team Providers Care Assembler Hydraulic Backhoe Name Role Phone Danni Aguillon MD Primary Care Provider [phone] Encounter Details Date Type Department Care Team (Late Contact Info) Description 07/31/2016 Correspondence External to External, [place] [address] PREFERRED ONE Social History Tobacco Use Types [...] 12:00 PM CDT Appointment Laboratory at [address] [address] 02/13/2025 1:40 PM CDT Appointment [facility] OB-STEAK TENDERIZER MACHINE Ultrasound [place] [address] [place], [place] [address] Tia Mosqueda MD [address] [place], [place] [address] 02/23/2025 12:40 PM CDT Appointment Obstetrics & Gynecology at [facility] [address] [place] [phone] Rachell Jordan MD [address] [place] [address] documented as of this encounter Visit Diagnoses Not on filedocumented in this encounter Care Teams Assembler Hydraulic Backhoe Relationship Specialty Start Date End Date Danni Aguillon MD [address] [place] [address] PCP - General Neurology 01/09/19 documented as of this encounter
--- OUTSIDE RECORDS SUMMARY | 2025-02-11 20:10 | XMS_ITS | Encounter Summary ---
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 Not on file Not on file documented as of this encounter Progress Notes * Alissa Siddiqui MD - 02/11/2013 12:00 AM CDT documented in this encounter Plan of Treatment Upcoming Encounters Date Type Department Care Team (Late st Contact Info) Description 02/12/2025 12:00 PM CDT Appointment Laboratory at [facility] [address] [place] [address] 02/13/2025 1:40 PM CDT Appointment [facility] OB-COSMETOLOGY EDUCATOR Ultrasound [place] [address] [place], [place] [address], [place] [address] Tia Mosqueda MD [address] [place] [address] 02/23/2025 12:40 PM CDT Appointment Obstetrics & Gynecology at [address] [phone] Rachell Jordan MD [address] [place] [address] documented as of this encounter Visit Diagnoses Not on filedocumented in this encounter Care Teams Journeyman Powerhouse Operator Relationship Specialty Start Date End Date Danni Aguillon MD [address] [place] [address] PCP - General Neurology 01/09/19 documented as of this encounter
--- OUTSIDE RECORDS SUMMARY | 2025-02-11 20:10 | XMS_ITS | Encounter Summary ---
Author Organization [facility] Address [address] [address] Care Team Providers Care Webbing Inspector Name Role Phone Danni Aguillon MD Primary Care Provider [phone] [phone] Encounter Details Date Type Department Care Team (Late Contact Info) Description 09/04/2016 Correspondence External to External, [place] [address] PREFERRED ONE Social History Tobacco Use Types [...] 02/12/2025 12:00 PM CDT Appointment Laboratory at [address] [address] 02/13/2025 1:40 PM CDT Appointment [facility] OB-WHITE HAT HACKER Ultrasound [place] [address] [place], [place] [address] Tia Mosqueda MD [address] [place], [place] [address] 02/23/2025 12:40 PM CDT Appointment Obstetrics & Gynecology at [facility] [address] [place] [phone] Rachell Jordan MD [address] [place] [address] documented as of this encounter Visit Diagnoses Not on filedocumented in this encounter Care Teams Webbing Inspector Relationship Specialty Start Date End Date Danni Aguillon MD [address] [place] [address] PCP - General Neurology 01/09/19 documented as of this encounter
--- OUTSIDE RECORDS SUMMARY | 2025-02-11 20:10 | XMS_ITS | Encounter Summary ---
Author Organization [facility] Address [address], [place] [address] Care Team Providers Care Linecasting Machine Keyboard Operator Name Role Phone Danni Aguillon MD Primary Care Provider [phone] Encounter Details Date Type Department Care Team (Late st Contact Info) Description 01/09/2017 Correspondence External to External, [place] [address] PLAN OF TREATMENT Social History Tobacco Use [...] 12:00 PM CDT Appointment Laboratory at [address] [address] 02/13/2025 1:40 PM CDT Appointment [facility] OB-DRIER TENDER NAPHTHALENE Ultrasound [place] [address] [place], [place] [address] Tia Mosqueda MD [address] [place], [place] [address] 02/23/2025 12:40 PM CDT Appointment Obstetrics & Gynecology at [facility] [address] [place] [phone] Rachell Jordan MD [address] [place] [address] documented as of this encounter Visit Diagnoses Not on filedocumented in this encounter Care Teams Linecasting Machine Keyboard Operator Relationship Specialty Start Date End Date Danni Aguillon MD [address] [place] [address] PCP - General Neurology 01/09/19 documented as of this encounter
--- OUTSIDE RECORDS SUMMARY | 2025-02-11 20:10 | XMS_ITS | Encounter Summary ---
Author Organization Counts include 234 beds at the [facility] Address [address] [place] [address] Care Team Providers Care Spa Attendant Name Role Phone Danni Aguillon MD Primary Care Provider [phone]- [phone] Encounter Details Date Type Department Care Team (Late st Contact Info) Description 12/26/2024 Results Follow-Up Obstetrics & Gynecology at [address] [address] Wanda Sinha RN Social History [...] Industry Job Start Date Job End Date [employer] Not on file Not on file Not on file documented as of this encounter Plan of Treatment Upcoming Encounters Date Type Department Care Team (Late st Contact Info) Description 02/12/2025 12:00 PM CDT Appointment Laboratory at [address] [address] 02/13/2025 1:40 PM CDT Appointment Counts include 234 beds at the [facility] OB-WATER LEAK REPAIRER Ultrasound [place] [address] [place] [address] Tia Mosqueda MD [address] [place] [address] 02/23/2025 12:40 PM CDT Appointment Obstetrics & Gynecology at [address] [address] Rachell Jordan MD [address] [place] [address] documented as of this encounter Visit Diagnoses Not on filedocumented in this encounter Care Teams Spa Attendant Relationship Specialty Start Date End Date Danni Aguillon MD [address] [place] [address] PCP - General Neurology 01/09/19 documented as of this encounter
--- OUTSIDE RECORDS SUMMARY | 2025-02-11 20:10 | XMS_ITS | Encounter Summary ---
Author Organization [facility] Address [address] [place] [address] Care Team Providers Care Dental Equipment Mechanic Name Role Phone Danni Aguillon MD Primary Care Provider [phone] Reason for Visit * Reason Comments F/u Ultrasound Encounter Details Date Type Department Care Team (Late st Contact Info) Description 01/04/2025 7:50 PM AIR POLLUTION SPECIALIST E-Visit Obstetrics & Gynecology at [address] [address] Nikole Winkler, BANANA RIPENING ROOM SUPERVISOR, REFINERY OPERATOR LIGHT ENDS RECOVERY [address] [place] [address] Dx: Positive test (Primary Dx) Social History [...] 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 I will place more HCG orders POLLUTION SPECIALIST * Wanda Sinha, RN - 01/05/2025 8:28 AM CST Will send to provider to review and advise - patient requesting HCG for peace of mind. Wanda Sinha, RN [place] AUTOMATION DESIGN ENGINEER POLLUTION SPECIALIST documented in this encounter Plan of Treatment Upcoming Encounters Date Type Department Care Team (Late st Contact Info) Description 02/12/2025 12:00 PM CDT Appointment Laboratory at [address] [address] 02/13/2025 1:40 PM CDT Appointment [facility] OB-MANAGER APPLICATION Ultrasound [place] [address] [place] [address] Tia Mosqueda MD [address] [place] [address] 02/23/2025 12:40 PM CDT Appointment Obstetrics & Gynecology at [address] [phone] Rachell Jordan MD [address] [place] [address] documented as of this encounter Results * (ABNORMAL) HCG, Quantitative, Serum (01/07/2025 11:35 AM AIR POLLUTION SPECIALIST) HCG, Quantitative 37,474(H) <=4 mIU/mL 01/07/2025 7:16 PM [facility] Blood Venipuncture / Unknown 01/07/2025 11:35 AM AIR POLLUTION SPECIALIST 01/07/2025 11:41 AM AIR POLLUTION SPECIALIST [facility] - 01/07/2025 7:16 PM AIR POLLUTION SPECIALIST Expected ranges Negative: <5 mIU/mL Indeterminate: 5-25 mIU/mL Positive: >25 mIU/mL Suggest repeat testing of indeterminate result in 72 hours. us aRchell Jordan MD LAB_1 [place] [address], [facility] * (ABNORMAL) HCG, Quantitative, Serum (01/05/2025 11:17 AM AIR POLLUTION SPECIALIST) HCG, Quantitative 26,545(H) <=4 mIU/mL 01/05/2025 4:27 PM AIR POLLUTION SPECIALIST [facility] Blood Venipuncture / Unknown 01/05/2025 11:17 AM AIR POLLUTION SPECIALIST 01/05/2025 11:17 AM AIR POLLUTION SPECIALIST [facility] - 01/05/2025 4:27 PM AIR POLLUTION SPECIALIST Expected ranges Negative: <5 mIU/mL Indeterminate: 5-25 mIU/mL Positive: >25 mIU/mL Suggest repeat testing of indeterminate result in 72 hours. us Rachell Jordan MD LAB_1 Final Result Performing Organization Address City/[facility]/ZIP Co de Phone Number [facility] [address] documented in this encounter Visit Diagnoses Diagnosis Positive test- Primary examination or test, positive result documented in this encounter Care Teams Dental Equipment Mechanic Relationship Specialty Start Date End Date Danni Aguillon MD [address] [place] [address] PCP - General Neurology 01/09/19 documented as of this encounter
--- OUTSIDE RECORDS SUMMARY | 2025-02-11 20:10 | XMS_ITS | Encounter Summary ---
Author Organization [facility] Address [address], [place] [address] Care Team Providers Care Nurse'S Assistant Name Role Phone Danni Aguillon MD Primary Care Provider [phone] Encounter Details Date Type Department Care Team (Late Contact Info) Description 12/16/2019 Correspondence External to External, [place] [address] PREFERRED ONE Social History Tobacco Use Types [...] 02/12/2025 12:00 PM CDT Appointment Laboratory at [address] [address] 02/13/2025 1:40 PM CDT Appointment [facility] OB-TANK TENDER Ultrasound [place] [address] [place], [place] [address] Tia Mosqueda MD [address] [place], [place] [address] 02/23/2025 12:40 PM CDT Appointment Obstetrics & Gynecology at [facility] [address] [place] [phone] Rachell Jordan MD [address] [place], [place] [address] documented as of this encounter Visit Diagnoses Not on filedocumented in this encounter Care Teams Nurse'S Assistant Relationship Specialty Start Date End Date Danni Aguillon MD [address] [place] [address] PCP - General Neurology 01/09/19 documented as of this encounter
--- OUTSIDE RECORDS SUMMARY | 2025-02-11 20:10 | XMS_ITS | Encounter Summary ---
Author Organization [facility] Address [address] [place] [address] Care Team Providers Care Refresh Technician Name Role Phone Danni Aguillon MD Primary Care Provider [phone] Reason for Visit * Reason Comments FOLLOW-UP, TEST RESULTS Encounter Details Date Type Department Care Team (Late st Contact Info) Description 12/20/2024 Nurse Triage Obstetrics & Gynecology at [address] [address] Nikole Winkler, EMISSIONS TECHNICIAN, MEDICAL RECORD LIBRARIAN [address] [place] [address] FOLLOW-UP, TEST RESULTS Social History Tobacco Use Types Packs/Day [...] Industry Job Start Date Job End Date [employer] Not on file Not on file Not on file documented as of this encounter Progress Notes * Emelia Terrell RN - 12/23/2024 8:55 AM CSTAddended by: EMELIA TERRELL on: 12/23/2024 08:55 AM Modules accepted: Orders SPINNER documented in this encounter Nursing Notes * Wanda Sinha RN - 01/16/2025 9:31 AM CDT Impression Cunningham live Intrauterine at 7w2d +/- [...] will follow up with her obstetrical provider. Viable IUP confirmed. Patient is appropriately scheduled for NOB on 01/19. Will close this encounter. Wanda Sinha RN [place] STERILE PROCESSING MANAGER * Lorena Gamez RN - 01/03/2025 9:06 AM CST US reviewed. IUP noted, but too early for viability. Encourage repeat US in 11- 14 days. SAB precautions Nikole Winkler, SARA, MEDICAL RECORD LIBRARIAN 01/03/2025, 9:03 AM Impression: Intrauterine too early to determine viability. Ultrasound appearance is not consistent with menstrual dating. Gestational sac and yolk sac visualized today. pole not yet seen. Normal appearing ovaries and adnexa bilaterally. Plan: These findings were reviewed with the patient. She will follow up with her referring provider. Recommend follow-up ultrasound in 11-14 days to determine viability/ establish dates. Bleeding precautions reviewed. Patient is already scheduled for follow-up US. Triage to monitor for results. Future Appointments Provider Department Center 01/16/2025 7:40 AM AV OB US 1 cheese cooker Ultrasound at [facility] Ryan RN SPINNER * Wanda Sinha RN - 12/26/2024 8:50 AM CST Called and informed patient of the provider's comments and follow-up recommendations. Patient stated understanding and agreed with the plan. Patient denied having any questions at this time. Transferred to [place] to assist with moving up US 1 week. RN will monitor for results. Wanda Sinha RN Odessa STERILE PROCESSING MANAGER SPINNER * Nikole Winkler APRN, CNP - 12/26/2024 8:42 AM CST Triage note reviewed. Beta HCG trend reviewed, increase is greater then expected doubling. Can moveUS to 1 week earlier then previously scheduled US. SAB precautions Nikole Winkler APRN, COCO 12/26/2024, 8:44 AM SPINNER * Wanda Sinha RN - 12/26/2024 7:35 AM CST Component Latest Ref Rng 12/20/2024 12/22/2024 12/24/2024 HCG, Quant. Preg. <=4 mIU/mL 46 (H) 130 (H) 444 (H) Will send to provider for final review. Patient is scheduled for first tri US on 01/10 Wanda Sinha RN Odessa STERILE PROCESSING MANAGER SPINNER * Huyen Atkins RN - 12/24/2024 4:09 PM CST Clinician: Review and advise Patient/post acute care nurse request: Input needed: lab results Specific Request: See HCG below. Patient mentioned that if HCG was tripling provider might want to schedule ultra sound sooner. HCG, Quantitative <=4 mIU/mL 444 High 130 High 46 High Verified patient identity using three identifiers: Yes Situation/Background (brief explanation of current symptoms/situation): A little bit of cramps. But it's like less than period cramps. Mild cramps. First noted cramping, before I tested positive for . Reports cramping less frequent now. Refugio/Parity: Gestational Age (by TARA or LMP): Unknown Patient blood type: Results in Past 300 Days Result Component Current Result Antibody Screen Interpretation Negative (03/04/2024) Does patient have RH negative blood type? Yes: consider need for Rhogam if bleeding Reviewed with patient pertinent medical history and risk status (as it relates to the call): Yes Reason for Disposition [1] Intermittent lower abdominal pain (e.g., cramping) AND [2] present > 24 hours Protocols used: - Abdominal Pain Less Than 20 Weeks [id number] Plan: Clinician consult Clinician name: Dr. Rachell Jordan Paged at 4:29 PM Page returned at 4:30 PM Assessment shared, orders are: 1) Appropriate rise 2) Will route to clinic Telephone Orders Read Back to clinician. 4:42 PM Returned call to patient. Shared orders from on-call clinician. Patient agrees with plan, no further questions. Advised patient/caller to call back CareLine if there are further questions or concerns or to be seen if situation becomes emergent. The CareLine is available 25/05. Huyen Flroes RN CareLine 4:43 PM 12/24/2024 SPINNER * Annamaria Danielle RN - 12/23/2024 9:02 AM CST Careline will monitor for pt's HCG to be drawn on 12/24/2024. Annamaria Villalba RN Careline 9:03 AM 12/23/2024 SPINNER * Emelia Terrell RN - 12/23/2024 8:37 AM CST Beta HCG is rising appropriately. Can offer repeat in 48 hours if she wishes to document continued appropriate rise. Otherwise, plan US scheduled. Nikole Winkler APRN, MEDICAL RECORD LIBRARIAN 12/22/2024, 7:30 PM Called and spoke with the patient to go over the above message and inquire if she would like to have another Hcg drawn in 48 hours or just wait to have her US as scheduled. Patient stated that she would like to have another Hcg drawn tomorrow(12/24). Order placed and patient transferred to our [place] to help with scheduling and will send a message to our Careline to watch for the Hcg on Thursday. The Hcg's are being done due to positive test at home and negative in clinic. Please call the doctor contract loader with the results, let the patient know and then route the note back to our pool. Emelia Rucker OBGYN SPINNER SPINNER * Nikole Winkler APRN, CNP - 12/22/2024 7:26 PM CST Beta HCG is rising appropriately. Can offer repeat in 48 hours if she wishes to document continued appropriate rise. Otherwise, plan US scheduled. Nikole Winkler APRN, COCO 12/22/2024, 7:30 PM SPINNER * Emelia Terrell RN - 12/22/2024 4:40 PM CST Images from the original note were not included. Component Latest Ref Rng 12/20/2024 12/22/2024 HCG, Quant. Preg. <=4 mIU/mL 46 (H) 130 (H) Layla Velez DO P Av Fittings Tightener Rn HCG levels reviewed and appear to be rising normally. Okay for primary OB to review and make recommendations for follow-up. Thanks. Layla Velez DO Called and spoke with the patient to go over the above result and the message from the provider. I did go over that I will send this to Nikole sanon for further follow up and recommendations and once we hear back we will call her. All questions answered. Emelia Rucker OBGYN SPINNER * Lorena Gamez RN - 12/20/2024 3:59 PM CST Patient calling back. Discussed HCG result as below. Discussed that it is odd for UPT to be negative, could have been false negative, lab error. She also feels like she drank a lot of water and wonders if her urine was very diluted and could have caused a false negative. Will re-check her HCG level on 12/22 as planned. If rising appropriately, will need to complete 1st OB intake info as well. Patient verbalizes understanding and is agreeable to the plan of care. No further questions or concerns at this time. NERY Carrillo STERILE PROCESSING MANAGER SPINNER * Wanda Sinha RN - 12/20/2024 3:59 PM CST Patient contacted clinic via 12/20/2024 OPS regarding this result. Message sent back with provider interpretation and plan of care. RN will monitor for 12/22 HCG. Wanda Sinha RN Odessa STERILE PROCESSING MANAGER SPINNER * Lorena Gamez RN - 12/20/2024 3:39 PM CST Images from the original note were not included. Component Latest Ref Rng 12/20/2024 HCG, Quant. Preg. <=4 mIU/mL 46 (H) Legend: (H) High Nikole Winkler APRN, MEDICAL RECORD LIBRARIAN 12/20/2024 3:33 PM BOX SPINNER Beta HCG 46, interesting that UPT was negative as urine Beta HCG is typically detected at 25. Repeat Beta HCG in 48 hours. Nikole Winkler APRN, MEDICAL RECORD LIBRARIAN 12/20/2024, 3:33 PM Message left for patient to return call to clinic. NERY Carrillo STERILE PROCESSING MANAGER SPINNER * Wanda Sinha RN - 12/20/2024 10:54 AM CST Called and reviewed negative UPT with patient. Noted we are awaiting HCG quant. Reviewed process with patient for HCGs x2. Will follow up with patient based on results. Patient stated understanding and appreciation, and agreed with the plan. Patient denied having any questions at this time. Wanda Sinha, RN [place]essa STERILE PROCESSING MANAGER SPINNER * Linda West V - 12/20/2024 10:19 AM CST Test Results: Patient is calling for results of a: Lab What is a good number to reach you at? [phone] Preferred communication method: Phone Call. Is it okay to leave a detailed message on your voicemail? Yes If a prescription is needed, patient would like it filled at the pharmacy listed in Meds & Orders. Is there anything else I can help you with today? No Linda West V STERILE PROCESSING MANAGER Poker Machine Attendant 12/20/2024, 10:19 AM SPINNER documented in this encounter Plan of Treatment Upcoming Encounters Date Type Department Care Team (Late st Contact Info) Description 02/12/2025 12:00 PM CDT Appointment Laboratory at [address] [address] 02/13/2025 1:40 PM CDT Appointment [facility] OB-SENIOR ARCHITECT/DESIGN MANAGER Ultrasound [place] [address] [place] [address] Tia Mosqueda MD [address] [place] [address] 02/23/2025 12:40 PM CDT Appointment Obstetrics & Gynecology at [facility] [phone] [place] [phone] Rachell Jordan MD [address] [place] [address] documented as of this encounter Results * (ABNORMAL) HCG, Quantitative, Serum (12/24/2024 12:02 PM BOX SPINNER) HCG, Quantitative 444(H) <=4 mIU/mL 025 3:10 PM [facility] Blood Venipuncture / Unknown 12/24/2024 12:02 PM BOX SPINNER 12/24/2024 12:20 PM BOX SPINNER Critical access hospital - 12/24/2024 3:10 PM BOX SPINNER Expected ranges Negative: <5 mIU/mL Indeterminate: 5-25 mIU/mL Positive: >25 mIU/mL Suggest repeat testing of indeterminate result in 72 hours. us Nikole Winkler EMISSIONS TECHNICIAN, MEDICAL RECORD LIBRARIAN LAB_1 Final R esult [address] [address], [facility] documented in this encounter Visit Diagnoses Diagnosis Positive test- Primary examination or test, positive result documented in this encounter Care Teams Refresh Technician Relationship Specialty Start Date End Date Danni Aguillon MD [address] [place] [address] PCP - General Neurology 01/09/19 documented as of this encounter
--- OUTSIDE RECORDS SUMMARY | 2025-02-11 20:10 | XMS_ITS | Encounter Summary ---
Author Organization [facility] Address [address], [place] [address] Care Team Providers Care Fiberglass Model Maker Name Role Phone Danni Aguillon MD Primary Care Provider [phone] Encounter Details Date Type Department Care Team (Late st Contact Info) Description 11/28/2017 Correspondence [facility] Radiology [address] [place] [address] Radiology, Provider MRI SAFETY SHEET AND COMPATIBILITY [...] 12:00 PM CDT Appointment Laboratory at [address] [address] 02/13/2025 1:40 PM CDT Appointment [facility] OB-BURGLAR ALARM ASSEMBLER Ultrasound [place] [address] [place], [place] [phone] Tia Mosqueda MD [address] [place], [place] [address] 02/23/2025 12:40 PM CDT Appointment Obstetrics & Gynecology at [address] [place] [phone] Rachell Jordan MD [address] [place] [address] documented as of this encounter Visit Diagnoses Not on filedocumented in this encounter Care Teams Fiberglass Model Maker Relationship Specialty Start Date End Date Danni Aguillon MD [address] [place] [address] PCP - General Neurology 01/09/19 documented as of this encounter
--- OUTSIDE RECORDS SUMMARY | 2025-02-11 20:10 | XMS_ITS | Encounter Summary ---
Author Organization [facility] Address [address] [place] [address] Care Team Providers Care Archery Equipment Repairer Name Role Phone Danni Aguillon MD Primary Care Provider [phone] Encounter Details Date Type Department Care Team (Late st Contact Info) Description 12/29/2024 12:40 PM BOX OFFICE ATTENDANT Lab Visit Laboratory at [address] [address] Spotting in early Social History Tobacco Use [...] Industry Job Start Date Job End Date [employer] Not on file Not on file Not on file documented as of this encounter Plan of Treatment Upcoming Encounters Date Type Department Care Team (Late st Contact Info) Description 02/12/2025 12:00 PM CDT Appointment Laboratory at [facility] [address] [place] [phone] 02/13/2025 1:40 PM CDT Appointment [facility] OB-MANAGER POLICY Ultrasound [place] [address] [place], [place] [address] Tia Msoqueda MD [address] [place] [address] 02/23/2025 12:40 PM CDT Appointment Obstetrics & Gynecology at [address] [phone] Rachell Jordan MD [address] [place], [place] [phone] documented as of this encounter Procedures Procedure Name Priority Date/Time Associated Diagnosis Comments HCG, QUANTITATIVE, SERUM Same Day 12/29/2024 12:13 PM BOX OFFICE ATTENDANT Spotting in early documented in this encounter Results * (ABNORMAL) HCG, Quantitative, Serum (12/29/2024 12:13 PM BOX OFFICE ATTENDANT) HCG, Quantitative 3,246(H) <=4 mIU/mL 12/29/2024 3:28 PM BOX OFFICE ATTENDANT [facility] Blood Venipuncture / Unknown 12/29/2024 12:13 PM BOX OFFICE ATTENDANT 12/29/2024 12:13 PM BOX OFFICE ATTENDANT Narrative [facility] - 12/29/2024 3:28 PM BOX OFFICE ATTENDANT Expected ranges Negative: <5 mIU/mL Indeterminate: 5-25 mIU/mL Positive: >25 mIU/mL Suggest repeat testing of indeterminate result in 72 hours. us Rachell Jordan MD LAB_1 Final Result [facility] [address] [place] [address], [facility] documented in this encounter Visit Diagnoses Diagnosis Spotting in early Spotting complicating , antepartum condition or complication documented in this encounter Care Teams Archery Equipment Repairer Relationship Specialty Start Date End Date Danni Aguillon MD [address] [place] [address] PCP - General Neurology 01/09/19 documented as of this encounter
--- OUTSIDE RECORDS SUMMARY | 2025-02-11 20:10 | XMS_ITS | Encounter Summary ---
Author Organization [facility] Address [address], [place] [address] Care Team Providers Care Community Affairs Manager Name Role Phone Danni Aguillon MD Primary Care Provider [phone] Encounter Details Date Type Department Care Team (Late st Contact Info) Description 12/09/2016 Correspondence [facility] Radiology [address] [place] [address] Radiology, Provider MRI SAFETY SHEET AND COMPATIBILITY [...] 12:00 PM CDT Appointment Laboratory at [address] [phone] 02/13/2025 1:40 PM CDT Appointment [facility] OB-MATERIALS CLERK Ultrasound [place] [address] [place], [place] [phone] Tia Mosqueda MD [address] [place], [place] [address] 02/23/2025 12:40 PM CDT Appointment Obstetrics & Gynecology at [address] [place] [phone] Rachell Jordan MD [address] [place] [address] documented as of this encounter Visit Diagnoses Not on filedocumented in this encounter Care Teams Community Affairs Manager Relationship Specialty Start Date End Date Danni Aguillon MD [address] [place] [address] PCP - General Neurology 01/09/19 documented as of this encounter
--- OUTSIDE RECORDS SUMMARY | 2025-02-11 20:10 | XMS_ITS | Encounter Summary ---
Author Organization [facility] Address [address] [place] [address] Care Team Providers Care Sales And Service Technician Name Role Phone No Ref-Primary, Physician Primary Care Provider Danni Aguillon MD Unavailable [phone] Encounter Details Date Type Department Care Team (Late st Contact Info) Description 03/12/2024 MyC Medical Advice [facility] Neurology Clinic [address] [address] Danni Aguillon MD [address] [place] [phone] Social History Tobacco Use Types Packs/Day Years Used Date Smoking Tobacco: Never Passive Smoke Exposure: Never Smokeless Tobacco: Never Alcohol Use Standard Drinks/Week Comments Yes 0 (1 standard drink = 0.6 oz pur e alcohol) Alcoholic Drinks/day: socially PHQ-2 Answer Date Recorded PHQ-2 Score 0 02/29/2024 Adolescent Education Answer Date Record ed Getting School Help Needed Not on file 07/25 Comments Yes Sex and Gender Information Value Date Recorded Sex Assigned at Not on file Legal Sex Female 7:56 AM CDT Gender Identity Female 08/12/2024 10:44 AM CDT Sexual Orientation Not on file documented as of this encounter Plan of Treatment Upcoming Encounters Date Type Department Care Team (Late st Contact Info) Description 03/06/2025 8:00 AM CDT Infusion Therapy Visit [facility] [address] [place] [address] Danni Aguillon MD [address] [place] [address] 05/15/2025 3:00 PM CDT Office Visit [facility] Neurology [address] [phone] Danni Aguillon MD [address] [place] [phone] documented as of this encounter Visit Diagnoses Not on filedocumented in this encounter Care Teams Sales And Service Technician Relationship Specialty Start Date End Date No Ref-Primary, Physician PCP - General 10/12/22 Danni Aguillon MD [address] [place] [address] [phone] Assigned Neuroscience Provider 12/06/22 documented as of this encounter
--- OUTSIDE RECORDS SUMMARY | 2025-02-11 20:10 | XMS_ITS | Encounter Summary ---
Author Organization [facility] Address [address], [place] [address] Care Team Providers Care Windows Systems Administrator Name Role Phone Danni Aguillon MD Primary Care Provider [phone] Encounter Details Date Type Department Care Team (Late st Contact Info) Description 09/12/2016 Correspondence External to External, [place] [address] NOTICE OF PATIENT AUTH Social History Tobacco [...] 02/12/2025 12:00 PM CDT Appointment Laboratory at [address] [address] 02/13/2025 1:40 PM CDT Appointment [facility] OB-CHILDCARE AIDE Ultrasound [place] [address] [place], [place] [address] Tia Mosqueda MD [address] [place], [place] [address] 02/23/2025 12:40 PM CDT Appointment Obstetrics & Gynecology at [facility] [phone] [place] [phone] Rachell Jordan MD [address] [place] [address] documented as of this encounter Visit Diagnoses Not on filedocumented in this encounter Care Teams Windows Systems Administrator Relationship Specialty Start Date End Date Danni Aguillon MD [address] [place] [address] PCP - General Neurology 01/09/19 documented as of this encounter
--- OUTSIDE RECORDS SUMMARY | 2025-02-11 20:10 | XMS_ITS | Encounter Summary ---
Author Organization [facility] Address [address], [place] [address] Care Team Providers Care Frame Hand Name Role Phone Danni Aguillon MD Primary Care Provider [phone] Encounter Details Date Type Department Care Team (Late st Contact Info) Description 05/26/2018 Correspondence [facility] Radiology [address] [place] [address] Radiology, Provider MRI SAFETY SHEET AND COMPATIBILITY [...] 02/12/2025 12:00 PM CDT Appointment Laboratory at [address] [phone] 02/13/2025 1:40 PM CDT Appointment [facility] OB-EXERCISE SPECIALIST Ultrasound [place] [address] [place], [place] [phone] Tia Mosqueda MD [address] [place], [place] [address] 02/23/2025 12:40 PM CDT Appointment Obstetrics & Gynecology at [address] [place] [phone] Rachell Jordan MD [address] [place] [address] documented as of this encounter Visit Diagnoses Not on filedocumented in this encounter Care Teams Frame Hand Relationship Specialty Start Date End Date Danni Aguillon MD [address] [place] [address] PCP - General Neurology 01/09/19 documented as of this encounter
== END 2025-02-11 20:58 | disposition home or self-care (01) ==
PROVIDERS: Emergency Provider Student in an Organized Health Care Education/Training Program; PCP Nurse Practitioner
DX: N93.9 Abnormal uterine and vaginal bleeding, unspecified (principal)
CPT/HCPCS: 36415; 76830; 76856; 80048; 85025; 99284